=== PATIENT | female | born 1955 | race Caucasian/White ===

== ENCOUNTER 2024-06-18 10:26 | Outpatient (AMB) | payer MEDICARE, SELFPAY ==
[2024-06-18 10:31] VITALS: BP 128/74; PULSE 74; O2SAT 96; BMI 30.3
--- NOTE | 2024-06-18 10:31 | A.OFFVIS_ITS ---
Vital Signs 3 06/18/24 10:31 Height 5 ft 5.5 in Weight 185 lb BMI 30.3 BP 128/74 Blood Pressure Location Rt brachial Position Sitting Pulse 74 Pulse Source Pulse Oximeter Pulse Oximetry (%) 96 Oxygen Delivery Method Room Air Intake Visit Reasons: Bronchitis [employer] Team Member Required: No Allergies cephalexin [From Keflex] Adverse Reaction (Severe, Verified 06/18/24 10:36) Rash Sulfa Drug Adverse Reaction (Severe, Uncoded 06/18/24 10:36) Rash HPI Comments Details: The patient is here for pulmonary evaluation. The patient is a 68 year woman presenting with cough and also persistent dyspnea on exertion. Moderate severity. Apparently patient has not a condition of atrial fibrillation. She is followed closely by Cardiology. She is on a Spacemaker. In addition to that she has been having worsening respiratory symptoms including nonproductive cough chest congestion and shortness of breath. She was evaluated at [facility] where she had a pulmonary function study demonstrating normal obstructive nor restrictive ventilatory defects. In addition to that he had a chest x-ray demonstrating no acute disease although she does have the pacemaker placement and some back issues. The patient was given a diagnosis of asthma. She had been on Advair. She also has a rescue inhaler. She knows to use the rescue inhaler as needed and also prior to exercise. She is an avid swimmer. Recently she had a battery change for her pacemaker so she has not been able to swim in the last week. Because of her ongoing shortness of breath not responding to the respiratory therapy she has been scheduled for a cardiopulmonary exercise tolerance at [facility]. In the meantime the patient was taken for brief walking oximetry. Her heart rate did increase to about 115 and pulse ox was about 95%. Her dyspnea score 5/10. The patient also on examination does have some fine inspiratory crackles at the bases suggesting some degree of interstitial lung disease. 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 She is not sure that has anything to do with it. She did smoke poor. In light but very short. Denies any other exposure to any fumes or toxins. Based on her crackles in her respiratory symptoms I do believe a CT scan would be helpful to rule out interstitial lung disease. Finally. The patient does have a history sleep apnea. Along with cardiovascular disease in uncontrolled atrial fibrillation the patient needs to be further evaluated for that. She does have an elevated [place] score of 10/24. She also lower extremity edema. Along with cardiovascular risk factors in her arrhythmias the patient will benefit from an in-lab study at this time. Also to note the patient does have significant lower extremity edema. It may indeed be part of the calcium channel estela effect although will go ahead and give her 3 days of Lasix to help with the volume status specially with increased heart rate. [facility] Medical History (Updated 06/18/24 @ 21:39 by Amauri Das MD) Atrial fibrillation TRINA (obstructive sleep apnea) Chest crackles Social History (Updated 06/18/24 @ 10:42 by JANET Tabor) Patient Tobacco Use Status: Former Tobacco user Tobacco use type: Cigarette Years Smoked: 10 Years Review of Systems Const Denies fever(s) Eyes Reports no additional complaints ENT Reports dizziness and Reports nasal congestion Card Denies chest pain and Reports dyspnea on exertion Resp Reports cough, Reports dyspnea on exertion and Denies wheezing GI Reports no additional complaints Musc Reports abnormal gait and Reports myalgias Skin/Breast Denies rash Neuro Reports abnormal gait and Reports dizziness Be/Lymph Reports no additional complaints Aller/Immun Denies wheezing Physical Exam Vital Signs: Last Vital Signs Pulse 74 06/18/24 10:31 BP 128/74 06/18/24 10:31 Pulse Ox 96 06/18/24 10:31 Oxygen Delivery Method Room Air 06/18/24 10:31 BMI result Body Mass Index 30.3 Const General: comfortable HEENT Head: Yes normocephalic Neck Neck: Yes supple Chest Chest palpation & inspection: normal inspection of the chest Resp Effort & Inspection: normal respiratory effort Auscultation: crackles bilateral and diminished lung sounds Cardio Heart sounds: S1 normal heart sound present and S2 normal heart sound present GI Palpation (GI): Soft to palpation Skin General skin exam: no rashes or lesions noted Extrem General: No cyanosis and Yes edema Results Reviewed Results Reviewed: Assessment & Plan Assessment & Plan (1) Chest crackles: Comment: ?ILD Code(s): R09.89 - Other specified symptoms and signs involving the circulatory and respiratory systems Category: Medical (2) TRINA (obstructive sleep apnea): Code(s): G47.33 - Obstructive sleep apnea (adult) (pediatric) Category: Medical (3) Atrial fibrillation: Code(s): I48.91 - Unspecified atrial fibrillation Category: Medical Qualifiers: Atrial fibrillation type: unspecified chronic Qualified Code(s): I48.20 - Chronic atrial fibrillation, unspecified Plan CT chest to address crackles and worsening dyspnea, previous CXR was non diagnostic In lab sleep study to address TRINA and cardiac arrythmia Lasix x 3 days consider changing CCB with significant LE edema continue respiratory therapy CPET had been requested restart swiming once PM wound heals F/U 2-3 months Orders: Orders 2 XR chest 2V Today R09.89 - Other specified symptoms and signs involving the circulatory and respiratory systems CT chest wo IV con Today J84.9 - Interstitial pulmonary disease, unspecified, R09.89 - Other specified symptoms and signs involving the circulatory and respiratory systems RT PSG in-lab sleep study Today G47.33 - Obstructive sleep apnea (adult) (pediatric), I48.91 - Unspecified atrial fibrillation Medications: New 2 furosemide (Lasix) 20 mg PO DAILY 3 tabs 0RF 3 days Coding Level of Care Code New Pt Level 4 (15106) Diagnoses Chest crackles R09.89 TRINA (obstructive sleep apnea) G47.33 Chronic atrial fibrillation I48.20 Atrial fibrillation type: unspecified chronic Time Spent (min) 38
== END 2024-06-18 11:10 | disposition home or self-care (01) ==
PROVIDERS: PCP Internal Medicine; Visit Provider Hospitalist
DX: R09.89 Other specified symptoms and signs involving the circulatory and respiratory systems (principal); G47.33 Obstructive sleep apnea (adult) (pediatric); I48.20 Chronic atrial fibrillation, unspecified
CPT/HCPCS: 99204

== ENCOUNTER 2024-06-18 10:26 | Outpatient (REF) | payer MEDICARE, SELFPAY ==
--- NOTE | ~2024-06-18 | XR_ITS ---
EXAMINATION: XR CHEST CLINICAL INFORMATION: Other specified symptoms and signs involving the circulatory system COMPARISON: None available. TECHNIQUE: 2 views of the chest were obtained. FINDINGS: Cardiac silhouette is normal in size. Dual-lead pacemaker is present. The lungs are well aerated. There is no lobar consolidation. No pleural effusion or pneumothorax. Surgical clips project over the left axilla. XR/XR chest 2V IMPRESSION: No acute pulmonary pathology.
== END 2024-06-18 10:27 | disposition home or self-care (01) ==
LOC: HO.XRAY 10:26
PROVIDERS: PCP Internal Medicine; Visit Provider Hospitalist
DX: R09.89 Other specified symptoms and signs involving the circulatory and respiratory systems (principal); G47.33 Obstructive sleep apnea (adult) (pediatric); I48.20 Chronic atrial fibrillation, unspecified
CPT/HCPCS: 71046; 99202

== ENCOUNTER → 2024-07-01 19:30 | Outpatient (REF) | payer MEDICARE, SELFPAY | LOC: HO.SL 19:30 | PROVIDERS: Visit Provider Hospitalist | DX: G47.33 Obstructive sleep apnea (adult) (pediatric) (principal) | CPT/HCPCS: 95810 ==

== ENCOUNTER → 2024-07-01 21:45 | Outpatient (BNV) | payer MEDICARE, SELFPAY | PROVIDERS: Visit Provider Internal Medicine | DX: G47.33 Obstructive sleep apnea (adult) (pediatric) (principal) | CPT/HCPCS: 95810 ==

== ENCOUNTER 2024-07-13 15:00 | Outpatient (REF) | payer MEDICARE, SELFPAY ==
--- NOTE | ~2024-07-13 | CT_ITS ---
EXAMINATION: CT CHEST WITHOUT CONTRAST CLINICAL INFORMATION: Evaluate for interstitial pulmonary disease. Patient with pacemaker. COMPARISON: No prior CT. Chest x-ray 06/18/2024. TECHNIQUE: Multidetector volumetric CT imaging of the chest was done. Axial MIP volume rendering provided. Sagittal and coronal reformatted images were obtained. This CT examination was performed using dose optimization techniques as appropriate, variously including the following: *Automated exposure control *Adjustment of mA and/or kV according to patient size (this includes techniques or standardized protocols for targeted exams where dose is matched to indication/reason for exam; i.e. extremities or head) *Use of iterative reconstruction technique DLP: 189 mGy-cm FINDINGS: SUPERVISOR MATTRESS AND BOXSPRINGS: -Right-sided dual-lead pacemaker in place terminating in the right atrium and right ventricle. PULMONARY NODULES: -There are no suspicious pulmonary nodules identified. -There are a few tiny scattered calcified granulomata, benign. LUNGS: -Minimal scarring present, presumably from radiation, within the lingula peripherally. -Lungs are otherwise clear with no evidence of interstitial changes, bronchial thickening, peribronchial vascular interstitial thickening, or significant bronchiectasis. -There are no gross changes of pulmonary fibrosis or abnormal groundglass changes. MEDIASTINUM: -Left thyroid lobe is normal. Right lobe is poorly visualized. -Great vessels are patent and normal in caliber. Three-vessel branching pattern. Mild atheromatous calcification. -Aorta is nonaneurysmal, with mild tortuosity in the descending aspect. Minimal significant atheromatous calcification. -Main pulmonary arteries are mildly prominent, suggesting at least some degree of pulmonary hypertension. -There is moderate cardiac enlargement, with four-chamber enlargement, most prominent involving the right atrium and left atrium. -There are calcifications within the superior intraventricular septum, and involving the aortic annulus, likely representing old infarct and annular calcification. -Moderate-sized paraesophageal hernia at the GE junction. Remainder of the esophagus appears minimally patulous. CORONARY ARTERY CALCIFICATION: -None visualized on this study. PLEURA: - There is no pleural effusion. No pleural mass or thickening. AXILLA/CHEST WALL: -There has been left mastectomy with reconstruction. No axillary lymphadenopathy or masses. There are left axillary surgical clips. UPPER ABDOMEN: -There is diverticulosis of the imaged colon. -There is a 1.8 cm right lobe hepatic cyst. Liver otherwise is normal on noncontrast imaging. -And imaged kidneys, adrenal glands are normal, as well as the spleen. -There is mild to moderate fatty atrophy of the pancreas. OSSEOUS STRUCTURES: -No acute findings or suspicious findings. -Degenerative spinal changes. CT/CT chest wo IV con IMPRESSION: 1. No evidence of interstitial lung disease, or acute lung disease. 2. There is mild scarring in the lingular segment presumably from left breast radiation. 3. There are a few scattered pulmonary benign granulomata. There is no suspicious pulmonary nodule. 4. Moderate cardiomegaly with evidence of prior superior septal infarct and aortic annular calcifications. There is biatrial enlargement. 5. Moderate sized paraesophageal hiatus hernia. 6. Additional ancillary findings as discussed in the body of the report. Fleischner guidelines were followed. Electronically signed by: Elijah Guardado MD 09/21/2024 10:25 AM EDT
== END 2024-07-13 15:01 | disposition home or self-care (01) ==
LOC: HO.CT 15:00
PROVIDERS: Visit Provider Hospitalist
DX: J84.9 Interstitial pulmonary disease, unspecified (principal); R09.89 Other specified symptoms and signs involving the circulatory and respiratory systems
CPT/HCPCS: 71250

== ENCOUNTER → 2024-07-13 15:02 | Outpatient (BNV) | payer MEDICARE, SELFPAY | PROVIDERS: Visit Provider Radiology Diagnostic Radiology | DX: J84.9 Interstitial pulmonary disease, unspecified (principal) | CPT/HCPCS: 71250 ==

== ENCOUNTER 2024-09-24 10:57 | Outpatient (AMB) | payer MEDICARE, SELFPAY ==
[2024-09-24 11:04] VITALS: BP 122/78; PULSE 86; O2SAT 99; BMI 30.7
--- NOTE | 2024-09-24 11:04 | MHC.OFFVIS ---
Vital Signs 09/24/24 11:04 Height 5 ft 5.5 in Weight 187 lb 6.287 oz BMI 30.7 BP 122/78 Blood Pressure Location Lt brachial Position Sitting Pulse 86 Pulse Source Pulse Oximeter Pulse Oximetry (%) 99 Oxygen Delivery Method Room Air Intake Visit Reasons: Bronchitis Support Team Member Required: No Allergies cephalexin [From Keflex] Adverse Reaction (Severe, Verified 09/24/24 11:06) Rash Sulfa Drug Adverse Reaction (Severe, Uncoded 09/24/24 11:06) Rash HPI Comments Details: The patient is a 69 year woman presenting with cough and also persistent dyspnea on exertion. Moderate severity. Apparently patient has not a condition of atrial fibrillation. She is followed closely by Cardiology. She is on a Spacemaker. In addition to that she has been having worsening respiratory symptoms including nonproductive cough chest congestion and shortness of breath. She was evaluated at [facility] where she had a pulmonary function study demonstrating normal obstructive nor restrictive ventilatory defects. In addition to that he had a chest x-ray demonstrating no acute disease although she does have the pacemaker placement and some back issues. The patient was given a diagnosis of asthma. She had been on Advair. She also has a rescue inhaler. She knows to use the rescue inhaler as needed and also prior to exercise. She is an avid swimmer. Recently she had a battery change for her pacemaker so she has not been able to swim in the last week. Because of her ongoing shortness of breath not responding to the respiratory therapy she has been scheduled for a cardiopulmonary exercise tolerance at [facility]. In the meantime the patient was taken for brief walking oximetry. Her heart rate did increase to about 115 and pulse ox was about 95%. Her dyspnea score 5/10. The patient also on examination does have some fine inspiratory crackles at the bases suggesting some degree of interstitial lung disease. 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 She is not sure that has anything to do with it. She did smoke poor. In light but very short. Denies any other exposure to any fumes or toxins. Based on her crackles in her respiratory symptoms I do believe a CT scan would be helpful to rule out interstitial lung disease. Finally. The patient does have a history sleep apnea. Along with cardiovascular disease in uncontrolled atrial fibrillation the patient needs to be further evaluated for that. She does have an elevated [place] score of 10/24. She also lower extremity edema. Along with cardiovascular risk factors in her arrhythmias the patient will benefit from an in-lab study at this time. Also to note the patient does have significant lower extremity edema. It may indeed be part of the calcium channel estela effect although will go ahead and give her 3 days of Lasix to help with the volume status specially with increased heart rate. 09/24/2024 The patient is here for pulmonary follow-up visit. Overall the patient has been doing well. She continues have daytime drowsiness. Her [place] score is elevated 11/24. The patient did have a sleep study. We did personally reviewed. No evidence of any significant REM sleep. Likely that the sleep apnea is keeping her from getting adequate REM sleep in their poor sleep hygiene. The patient does have underlying sleep apnea and does have cardiovascular risk factors. Therefore will have to start her back on CPAP at this time. She had tried once in the past and she had a hard time with. I am hopeful that she tolerates the therapy better this time. If she has any difficulty she will call so we can assist her and help her process. In addition to that the patient did have a CT scan of the chest which we personally reviewed. The patient does have some radiation changes primarily which she had radiation for her breast cancer. Mainly on the left side. She does have some atelectasis but otherwise her lungs are clear without any evidence of any interstitial lung disease which is reassuring. She does have changes consistent with bronchitis and chronic at this time. The patient also has a moderate hiatal hernia that may be contributing to her cough and also chronic bronchitis. We did talk about the reflux diet and changes she could make at this time. She does have a GI doctor that she may benefit from seeing in the future. In the meantime she is going to sleep elevated we did talk about risers with the head of the bed specially if she gets used to her CPAP. It was also noted patient has small subcentimeter pulmonary nodules that will need follow-up but will discuss that further during her next visit. Also to note that the CT scan of the chest demonstrated some cardiac changes. She does follow-up with cardiology at [facility]. Will go ahead and fax over the report so they can have it as well. [facility] Medical History (Updated 09/24/24 @ 19:07 by Amauri Das MD) Hiatal hernia Pulmonary nodules Atrial fibrillation TRINA (obstructive sleep apnea) Chest crackles Social History (Updated 06/18/24 @ 10:42 by JANET Tabor) Patient Tobacco Use Status: Former Tobacco user Tobacco use type: Cigarette Years Smoked: 10 Years Review of Systems Const Denies fever(s) Eyes Reports no additional complaints ENT Reports dizziness and Reports nasal congestion Card Denies chest pain and Reports dyspnea on exertion Resp Reports cough, Reports dyspnea on exertion and Denies wheezing GI Reports no additional complaints Musc Reports abnormal gait and Reports myalgias Skin/Breast Denies rash Neuro Reports abnormal gait and Reports dizziness Be/Lymph Reports no additional complaints Aller/Immun Denies wheezing Physical Exam Vital Signs: Last Vital Signs Pulse 86 09/24/24 11:04 BP 122/78 09/24/24 11:04 Pulse Ox 99 09/24/24 11:04 Oxygen Delivery Method Room Air 09/24/24 11:04 BMI result Body Mass Index 30.7 Const General: comfortable HEENT Head: Yes normocephalic Neck Neck: Yes supple Chest Chest palpation & inspection: normal inspection of the chest Resp Effort & Inspection: normal respiratory effort Auscultation: no crackles and diminished lung sounds Cardio Heart sounds: S1 normal heart sound present and S2 normal heart sound present GI Palpation (GI): Soft to palpation Skin General skin exam: no rashes or lesions noted Extrem General: No cyanosis and Yes edema Results Reviewed Results Reviewed: [place] [id number] CT Scan Report Signed Patient: Rupal Nobles MR#: [id number] : 1955 Acct:[id number] Age/Sex: 68 / F ADM Date: 07/13/24 Loc: HO.CT Attending Dr: Amauri Das MD Ordering Physician: Amauri Das MD Date of Service: 07/13/24 Procedure(s): CT chest wo IV con Accession Number(s): [id number] cc: Amauri Das MD~ EXAMINATION: CT CHEST WITHOUT CONTRAST CLINICAL INFORMATION: Evaluate for interstitial pulmonary disease. Patient with pacemaker. COMPARISON: No prior CT. Chest x-ray 06/18/2024. TECHNIQUE: Multidetector volumetric CT imaging of the chest was done. Axial MIP volume rendering provided. Sagittal and coronal reformatted images were obtained. This CT examination was performed using dose optimization techniques as appropriate, variously including the following: *Automated exposure control *Adjustment of mA and/or kV according to patient size (this includes techniques or standardized protocols for targeted exams where dose is matched to indication/reason for exam; i.e. extremities or head) *Use of iterative reconstruction technique DLP: 189 mGy-cm FINDINGS: ACCIDENT EXAMINER: -Right-sided dual-lead pacemaker in place terminating in the right atrium and right ventricle. PULMONARY NODULES: -There are no suspicious pulmonary nodules identified. -There are a few tiny scattered calcified granulomata, benign. LUNGS: -Minimal scarring present, presumably from radiation, within the lingula peripherally. -Lungs are otherwise clear with no evidence of interstitial changes, bronchial thickening, peribronchial vascular interstitial thickening, or significant bronchiectasis. -There are no gross changes of pulmonary fibrosis or abnormal groundglass changes. MEDIASTINUM: -Left thyroid lobe is normal. Right lobe is poorly visualized. -Great vessels are patent and normal in caliber. Three-vessel branching pattern. Mild atheromatous calcification. -Aorta is nonaneurysmal, with mild tortuosity in the descending aspect. Minimal significant atheromatous calcification. -Main pulmonary arteries are mildly prominent, suggesting at least some degree of pulmonary hypertension. -There is moderate cardiac enlargement, with four-chamber enlargement, most prominent involving the right atrium and left atrium. -There are calcifications within the superior intraventricular septum, and involving the aortic annulus, likely representing old infarct and annular calcification. -Moderate-sized paraesophageal hernia at the GE junction. Remainder of the esophagus appears minimally patulous. CORONARY ARTERY CALCIFICATION: -None visualized on this study. PLEURA: - There is no pleural effusion. No pleural mass or thickening. AXILLA/CHEST WALL: -There has been left mastectomy with reconstruction. No axillary lymphadenopathy or masses. There are left axillary surgical clips. UPPER ABDOMEN: -There is diverticulosis of the imaged colon. -There is a 1.8 cm right lobe hepatic cyst. Liver otherwise is normal on noncontrast imaging. -And imaged kidneys, adrenal glands are normal, as well as the spleen. -There is mild to moderate fatty atrophy of the pancreas. OSSEOUS STRUCTURES: -No acute findings or suspicious findings. -Degenerative spinal changes. CT/CT chest wo IV con IMPRESSION: 1. No evidence of interstitial lung disease, or acute lung disease. 2. There is mild scarring in the lingular segment presumably from left breast radiation. 3. There are a few scattered pulmonary benign granulomata. There is no suspicious pulmonary nodule. 4. Moderate cardiomegaly with evidence of prior superior septal infarct and aortic annular calcifications. There is biatrial enlargement. 5. Moderate sized paraesophageal hiatus hernia. 6. Additional ancillary findings as discussed in the body of the report. Fleischner guidelines were followed. Electronically signed by: Elijah Guardado MD 09/21/2024 10:25 AM EDT RP Dictated By: Elijah Guardado MD Signed By: <Electronically signed by Elijah Guardado MD in OV> 09/21/24 1025 DD/ 1513 TD/TT: 07/13/24 1540 [employer]: Assessment & Plan Assessment & Plan (1) Pulmonary nodules: Code(s): R91.8 - Other nonspecific abnormal finding of lung field Category: Medical (2) TRINA (obstructive sleep apnea): Code(s): G47.33 - Obstructive sleep apnea (adult) (pediatric) Category: Medical (3) Atrial fibrillation: Code(s): I48.91 - Unspecified atrial fibrillation Category: Medical Qualifiers: Atrial fibrillation type: unspecified chronic Qualified Code(s): I48.20 - Chronic atrial fibrillation, unspecified (4) Hiatal hernia: Code(s): K44.9 - Diaphragmatic hernia without obstruction or gangrene Category: Medical Plan CT chest in 1 yr start APAP diuresi as tolerated continue respiratory therapy F/U 3-4 months Coding Level of Care Code Est Pt Level 4 (56556) Diagnoses Pulmonary nodules R91.8 TRINA (obstructive sleep apnea) G47.33 Chronic atrial fibrillation I48.20 Atrial fibrillation type: unspecified chronic Hiatal hernia K44.9 Time Spent (min) 17
== END 2024-09-24 11:37 | disposition home or self-care (01) ==
PROVIDERS: PCP Internal Medicine; Visit Provider Hospitalist
DX: R91.8 Other nonspecific abnormal finding of lung field (principal); G47.33 Obstructive sleep apnea (adult) (pediatric); I48.20 Chronic atrial fibrillation, unspecified; K44.9 Diaphragmatic hernia without obstruction or gangrene
CPT/HCPCS: 99214

== ENCOUNTER → 2024-09-24 10:57 | Outpatient (BNVA) | payer MEDICARE, SELFPAY | PROVIDERS: PCP Internal Medicine; Visit Provider Hospitalist | DX: R91.8 Other nonspecific abnormal finding of lung field (principal); G47.33 Obstructive sleep apnea (adult) (pediatric); I48.20 Chronic atrial fibrillation, unspecified; K44.9 Diaphragmatic hernia without obstruction or gangrene | CPT/HCPCS: 99212 ==

== ENCOUNTER 2024-12-25 10:26 | Outpatient (AMB) | payer MEDICARE, SELFPAY ==
--- NOTE | 2024-12-25 10:38 | A.OFFVIS_ITS ---
Vital Signs 12/25/24 10:39 Height 5 ft 5.5 in Weight 195 lb 1.745 oz BMI 32.0 BP 132/88 Blood Pressure Location Rt brachial Position Sitting Pulse 76 Pulse Source Pulse Oximeter Pulse Oximetry (%) 98 Oxygen Delivery Method Room Air Intake Visit Reasons: Bronchitis Allergies cephalexin [From Keflex] Adverse Reaction (Severe, Verified 12/25/24 10:46) Rash Sulfa Drug Adverse Reaction (Severe, Uncoded 12/25/24 10:46) Rash HPI Comments Details: The patient is a 69 year woman presenting with cough and also persistent dyspnea on exertion. Moderate severity. Apparently patient has not a condition of atrial fibrillation. She is followed closely by Cardiology. She is on a Spacemaker. In addition to that she has been having worsening respiratory symptoms including nonproductive cough chest congestion and shortness of breath. She was evaluated at [facility] where she had a pulmonary function study demonstrating normal obstructive nor restrictive ventilatory defects. In addition to that he had a chest x-ray demonstrating no acute disease although she does have the pacemaker placement and some back issues. The patient was given a diagnosis of asthma. She had been on Advair. She also has a rescue inhaler. She knows to use the rescue inhaler as needed and also prior to exercise. She is an avid swimmer. Recently she had a battery change for her pacemaker so she has not been able to swim in the last week. Because of her ongoing shortness of breath not responding to the respiratory therapy she has been scheduled for a cardiopulmonary exercise tolerance at [facility]. In the meantime the patient was taken for brief walking oximetry. Her heart rate did increase to about 115 and pulse ox was about 95%. Her dyspnea score 5/10. The patient also on examination does have some fine inspiratory crackles at the bases suggesting some degree of interstitial lung disease. 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 She is not sure that has anything to do with it. She did smoke poor. In light but very short. Denies any other exposure to any fumes or toxins. Based on her crackles in her respiratory symptoms I do believe a CT scan would be helpful to rule out interstitial lung disease. Finally. The patient does have a history sleep apnea. Along with cardiovascular disease in uncontrolled atrial fibrillation the patient needs to be further evaluated for that. She does have an elevated Minturn score of 10 /24. She also lower extremity edema. Along with cardiovascular risk factors in her arrhythmias the patient will benefit from an in-lab study at this time. Also to note the patient does have significant lower extremity edema. It may indeed be part of the calcium channel estela effect although will go ahead and give her 3 days of Lasix to help with the volume status specially with increased heart rate. 09/24/2024 The patient is here for pulmonary follow-up visit. Overall the patient has been doing well. She continues have daytime drowsiness. Her Minturn score is elevated 11/24. The patient did have a sleep study. We did personally reviewed. No evidence of any significant REM sleep. Likely that the sleep apnea is keeping her from getting adequate REM sleep in their poor sleep hygiene. The patient does have underlying sleep apnea and does have cardiovascular risk factors. Therefore will have to start her back on CPAP at this time. She had tried once in the past and she had a hard time with. I am hopeful that she tolerates the therapy better this time. If she has any difficulty she will call so we can assist her and help her process. In addition to that the patient did have a CT scan of the chest which we personally reviewed. The patient does have some radiation changes primarily which she had radiation for her breast cancer. Mainly on the left side. She does have some atelectasis but otherwise her lungs are clear without any evidence of any interstitial lung disease which is reassuring. She does have changes consistent with bronchitis and chronic at this time. The patient also has a moderate hiatal hernia that may be contributing to her cough and also chronic bronchitis. We did talk about the reflux diet and changes she could make at this time. She does have a GI doctor that she may benefit from seeing in the future. In the meantime she is going to sleep elevated we did talk about risers with the head of the bed specially if she gets used to her CPAP. It was also noted patient has small subcentimeter pulmonary nodules that will need follow-up but will discuss that further during her next visit. Also to note that the CT scan of the chest demonstrated some cardiac changes. She does follow-up with cardiology at [facility]. Will go ahead and fax over the report so they can have it as well. 12/25/2024 the patient is here for a pulmonary follow-up visit. Overall she is doing okay. She has been struggling with her cough has been bothering her and it has been difficult to use her CPAP because of that. She has been using the CPAP though and we did review together. Appears that her therapy his affecting beneficial although she needs a higher pressure. I did increase her minimum pressure from 12-14. She is going to use it regularly. She understands that this therapies more for his cardiovascular risk. Will help her continue with respiratory medicines to try to minimize the cough and therefore she can not herminio erated better. She is also has underlying reflux symptoms. She does have a hiatal hernia and she will follow-up with General surgery regarding hard hernia. I did have them make her CD so she can take the CD with her to her general surgeon's office so they can review the images. The patient follow-up in 6 months if she has any issues prior to that she will call for an earlier assessment. [facility] Medical History (Updated 09/24/24 @ 19:07 by Amauri Das MD) Hiatal hernia Pulmonary nodules Atrial fibrillation TRINA (obstructive sleep apnea) Chest crackles Social History Patient Tobacco Use Status: Former Tobacco user Tobacco use type: Cigarette Years Smoked: 10 Years Review of Systems Const Denies fever(s) Eyes Reports no additional complaints ENT Reports dizziness and Reports nasal congestion Card Denies chest pain and Reports dyspnea on exertion Resp Reports cough, Reports dyspnea on exertion and Denies wheezing GI Reports no additional complaints Musc Reports abnormal gait and Reports myalgias Skin/Breast Denies rash Neuro Reports abnormal gait and Reports dizziness Be/Lymph Reports no additional complaints Aller/Immun Denies wheezing Physical Exam Vital Signs: Last Vital Signs Pulse 76 12/25/24 10:39 BP 132/88 12/25/24 10:39 Pulse Ox 98 12/25/24 10:39 Oxygen Delivery Method Room Air 12/25/24 10:39 BMI result Body Mass Index 32.0 Const General: comfortable HEENT Head: Yes normocephalic Neck Neck: Yes supple Chest Chest palpation & inspection: normal inspection of the chest Resp Effort & Inspection: normal respiratory effort Auscultation: no crackles and diminished lung sounds Cardio Heart sounds: S1 normal heart sound present and S2 normal heart sound present GI Palpation (GI): Soft to palpation Skin General skin exam: no rashes or lesions noted Extrem General: No cyanosis and Yes edema Assessment & Plan Assessment & Plan (1) Pulmonary nodules: Code(s): R91.8 - Other nonspecific abnormal finding of lung field Category: Medical (2) TRINA (obstructive sleep apnea): Code(s): G47.33 - Obstructive sleep apnea (adult) (pediatric) Category: Medical (3) Atrial fibrillation: Code(s): I48.91 - Unspecified atrial fibrillation Category: Medical Qualifiers: Atrial fibrillation type: unspecified chronic Qualified Code(s): I48.20 - Chronic atrial fibrillation, unspecified (4) Hiatal hernia: Code(s): K44.9 - Diaphragmatic hernia without obstruction or gangrene Category: Medical Plan continue APAP start nasal steroid spray diuresis as tolerated continue respiratory therapy reflux diet should sleep elevated F/U 8-10 months Medications: New fluticasone propionate 50 mcg/actuation 2 sprays intranasal DAILY 30 days 15.8 mL 11RF J31.0 - Chronic rhinitis Coding Level of Care Code Est Pt Level 4 (03258) Diagnoses Pulmonary nodules R91.8 TRINA (obstructive sleep apnea) G47.33 Chronic atrial fibrillation I48.20 Atrial fibrillation type: unspecified chronic Hiatal hernia K44.9 Time Spent (min) 17
[2024-12-25 10:39] VITALS: BP 132/88; PULSE 76; O2SAT 98; BMI 32.0
--- OUTSIDE RECORDS SUMMARY | 2024-12-25 11:21 | XMS_ITS | Encounter Summary ---
Author Organization [facility] Address [phone] [facility] [place] [address] Care Team Providers Care Desulfurizer Operator Name Role Phone Divya Echeverria MD Primary Care Provi campbell Anayeli Ferguson MD Unavailable [phone] Encounter Details Date Type Department Care Team (Late st Contact Info) Description 11/19/2022 Procedure Pass [facility] [place], Mammography, Samina Lank Imaging Department [address] [place] [address] Social History Tobacco Use Types Packs/Day Years Used Date Smoking Tobacco: Never Cigarettes 0.3 15 - 12/29/1989 Passive Smoke Exposure: Yes Comments:Very light 1-3 ciga rettes per week Alcohol Use Standard Drinks/Week Comments Yes 3 (1 standard drink = 0.6 oz pur e alcohol) Sex and Gender Information Value Date Recorded Sex Assigned at Female 12/05/2017 9:39 AM EST Gender Identity Female Sexual Orientation Straight documented as of this encounter Plan of Treatment Upcoming Encounters Date Type Department Care Team (Late st Contact Info) Description 01/01/2025 11:00 AM EST [facility] [address] [facility] [address] [place] [address] Mata Guidry, SUPPLY ASSISTANT [address] [place] [address] [email or web address] Anayeli Ferguson MD [address] [place] [address] [email or web address] 01/18/2025 8:45 AM EST Office Visit [facility] General & Gastrointestinal Surgery [address] [place] [phone] Aquiles Alarcon MD [address] [address] [email or web address] documented as of this encounter Visit Diagnoses Not on filedocumented in this encounter Additional Health Concerns Assessment Noted Time PHQ-9 Depression Total Score: 0 07/31/20 15 11:59 AM EDT PHQ-2 Depression Total Score: 0 07/31/20 15 11:59 AM EDT documented as of this encounter Care Teams Desulfurizer Operator Relationship Specialty Start Date End Date Divya Echeverria MD [address] [place] [phone] [email or web address] - General Internal Medicine 06/02/17 Anayeli Ferguson MD [address] [place] [phone] [email or web address] Medical Oncology 06/06/19 documented as of this encounter Additional Source Comments The information contained in this document represents components of the legal health record. It is not the complete legal health record.[facility]
--- OUTSIDE RECORDS SUMMARY | 2024-12-25 11:22 | XMS_ITS | Encounter Summary ---
Author Organization [facility] Address [phone] [facility] [place] [address] Care Team Providers Care Bilingual Social Worker Name Role Phone Divya Echeverria MD Primary Care Provi campbell Anayeli Ferguson MD Unavailable [phone] Encounter Details Date Type Department Care Team (Late st Contact Info) Description 11/25/2023 Procedure Pass [facility] [place], Mammography, Samina Lank Imaging Department [address] [place] [address] [phone] Social History Tobacco Use Types Packs/Day Years Used Date Smoking Tobacco: Passive Smoke Exposure - Never Smoker Cigarettes 0.3 15 - 12/29/1989 Passive Smoke Exposure: Yes Comments:Very light 1-3 ciga rettes per week Alcohol Use Standard Drinks/Week Comments Yes 3 (1 standard drink = 0.6 oz pur e alcohol) Education Answer Date Recorded Are you interested in more education? Not on cipriano e 03/27/2023 Are you concerned about learning? Not on file 03/27/2023 No 03/27/2023 No 03/27/2023 Digital Access Answer Date Recorded No 04/24/2023 No 04/24/2023 Reliable internet access at home? Not on file 04/24/2023 Device with a working camera? Not on file Sex and Gender Information Value Date Recorded Sex Assigned at Female 12/05/2017 9:39 AM EST Gender Identity Female Sexual Orientation Straight documented as of this encounter Plan of Treatment Upcoming Encounters Date Type Department Care Team (Late st Contact Info) Description 01/01/2025 11:00 AM EST Office Visit [facility], [facility], [facility] [place] [address] [facility] [place] [address] Mata Guidry, CLINICAL DOCUMENTATION IMPROVEMENT SPECIALIST [address] [place] [address] [email or web address] Anayeli Ferguson MD [address] [place] [phone] [email or web address] 01/18/2025 8:45 AM EST Office Visit [facility] General & Gastrointestinal Surgery [address] [address] Aquiles Alarcon MD [address] [address] [email or web address] documented as of this encounter Visit Diagnoses Not on filedocumented in this encounter Additional Health Concerns Assessment Noted Time PHQ-9 Depression Total Score: 0 07/31/20 15 11:59 AM EDT PHQ-2 Depression Total Score: 0 07/31/20 15 11:59 AM EDT documented as of this encounter Care Teams Bilingual Social Worker Relationship Specialty Start Date End Date Divya Echeverria MD [address] [place] [phone] [email or web address] PCP - General Internal Medicine 06/02/17 Anayeli Ferguson MD [address] [place] [phone] (work) [email or web address] 06/06/19 documented as of this encounter Additional Source Comments The information contained in this document represents components of the legal health record. It is not the complete legal health record.[facility]
--- OUTSIDE RECORDS SUMMARY | 2024-12-25 11:22 | XMS_ITS ---
Author Organization [employer] Address 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 Name Role Phone SHAINA ECHEVERRIA Primary Care Provider [phone] Carlos Singh Unavailable [phone] Allergies Allergen (clinical drug ingredient) Drug/Non Drug Allergy documented on EMR Reaction Allergy Type Onset Date Status Keflex rash Drug Allergy Active cefadroxil Cefadroxil rash Drug Allergy Activ e Substance with sulfonamide structure and antibacterial mechanism of action (substance) Sulfa Antibiotics rash Drug Allergy Active REASON FOR VISIT new patient Medications Medication SIG (Take, Route, Frequency, Duration) Notes Start Date End Date Status amLODIPine Besylate 10 MG 1 tablet Orally Once a day Active Pravastatin Sodium 80 MG 1 tablet Orally Once a day Active Furosemide 20 MG 1/2 tablet Orally On ce a day Active Gabapentin 300 MG 1 capsule Orally Onc e a day Active Eliquis 5 MG as directed Orally T wice a day Active Vitamin D Active Calcium Active Omeprazole Active DULoxetine HCl Activ e Problems Problem Type SNOMED Code ICD Code Onset Dates Problem Status W/U Status Risk Notes Problem 989790987 Chronic atrial fibrillation (I48.20) Active confirmed Vital Signs Temperature 97.6 degrees Fahrenheit 10/19/20 24 Oximetry 94 % 10/19/2024 Heart Rate 92 /min 10/19/2024 Blood pressure systolic 132 mm Hg 10/19/20 24 Blood pressure diastolic 90 mm Hg 024 Weight 193 lbs 10/19/2024 BMI 31.62 kg/m2 10/19/2024 Height 5'5.5 in 10/19/2024 Encounters Encounter Location Date Provider Diagnosis [facility] [address] [place] [address] 10/19/2024 Arotrina Singh Essential hypertensi on I10 ; Mixed hyperlipidemia E78.2 and Chronic atrial fibrillation I48.20 Assessments Encounter Date Diagnosis (ICD Code) Assessment Notes Treatment Notes Treatment Clinical Notes Section Notes 10/19/2024 Essential hypertension (ICD-10 - I10) 69-year-old lady with history of chronic A. fib pacemaker on anticoagulation, hypertension hyperlipidemia is here today for a new patient visit. Plan as following Hypertension blood pressure , diastolic blood pressure slightly elevated at 90,will continue withamlodipine. We will obtain basic metabolic panel and albumin creatinine ratio., will f/up for bp and may need to adjust BP meds Hyperlipidemia continue with statins, obtain a lipid profile patient is watching her diet and exercising/swimmin g every day. History of chronic A. fib on anticoagulation not on any rate controlling medications currently stable continue Eliquis History of TRINA on CPAP followed by Dr. Das New finding of paraesophageal hernia patient reports is causing some shortness of breath and at times difficulty sleeping's left-sided pain she is thinking about surgical intervention at [facility]. CT also showed granulomas in the lungs and mild pulmonary hypertension but no suspicious nodules. She is followed by Dr. Das Chronic lower extremity edema/lymphedema continue with Lasix 20 mg daily Anxiety and depression she developed that after she lost her 2 years ago she is taking duloxetine 30 mg daily she at times feels depressed and lonely but does not affect her activities. PHQ 9 score was below. She follows with a therapist. History of breast cancer she is current on mammogram last one was done in 2022 she follows with [facility] Bone density was done in 2022 at [facility] and according to patient it was normal. Pap smear also [facility] she does not need it anymore she is up-to-date on flu, with pneumonia and shingles 10/19/2024 Mixed hyperlipidemia (ICD-10 - E78.2) 69-year-old lady with history of chronic A. fib pacemaker on anticoagulation, hypertension hyperlipidemia is here today for a new patient visit. Plan as following Hypertension blood pressure , diastolic blood pressure slightly elevated at 90,will continue withamlodipine. We will obtain basic metabolic panel and albumin creatinine ratio., will f/up for bp and may need to adjust BP meds Hyperlipidemia continue with statins, obtain a lipid profile patient is watching her diet and exercising/swimmin g every day. History of chronic A. fib on anticoagulation not on any rate controlling medications currently stable continue Eliquis History of TRINA on CPAP followed by Dr. Das New finding of paraesophageal hernia patient reports is causing some shortness of breath and at times difficulty sleeping's left-sided pain she is thinking about surgical intervention at [facility]. CT also showed granulomas in the lungs and mild pulmonary hypertension but no suspicious nodules. She is followed by Dr. Das Chronic lower extremity edema/lymphedema continue with Lasix 20 mg daily Anxiety and depression she developed that after she lost her 2 years ago she is taking duloxetine 30 mg daily she at times feels depressed and lonely but does not affect her activities. PHQ 9 score was below. She follows with a therapist. History of breast cancer she is current on mammogram last one was done in 2022 she follows with [facility] Bone density was done in 2022 at [facility] and according to patient it was normal. Pap smear also [facility] she does not need it anymore she is up-to-date on flu, with pneumonia and shingles 10/19/2024 Chronic atrial fibrillation (ICD-10 - I48.20) 69-year-old lady with history of chronic A. fib pacemaker on anticoagulation, hypertension hyperlipidemia is here today for a new patient visit. Plan as following Hypertension blood pressure , diastolic blood pressure slightly elevated at 90,will continue withamlodipine. We will obtain basic metabolic panel and albumin creatinine ratio., will f/up for bp and may need to adjust BP meds Hyperlipidemia continue with statins, obtain a lipid profile patient is watching her diet and exercising/swimmin g every day. History of chronic A. fib on anticoagulation not on any rate controlling medications currently stable continue Eliquis History of TRINA on CPAP followed by Dr. Das New finding of paraesophageal hernia patient reports is causing some shortness of breath and at times difficulty sleeping's left-sided pain she is thinking about surgical intervention at [facility]. CT also showed granulomas in the lungs and mild pulmonary hypertension but no suspicious nodules. She is followed by Dr. Das Chronic lower extremity edema/lymphedema continue with Lasix 20 mg daily Anxiety and depression she developed that after she lost her 2 years ago she is taking duloxetine 30 mg daily she at times feels depressed and lonely but does not affect her activities. PHQ 9 score was below. She follows with a therapist. History of breast cancer she is current on mammogram last one was done in 2022 she follows with [facility] Bone density was done in 2022 at [facility] and according to patient it was normal. Pap smear also [facility] she does not need it anymore she is up-to-date on flu, with pneumonia and shingles Plan Of Treatment Pending Test Test Name Order Date CBC with Diff, Platelet, [id number] 09/29 Albumin/Creatinine Ratio,Urine-[id number] Lipid Panel With LDL/HDL Ratio-[id number] Comp. Metabolic Panel [id number] 2023 Next Appt Details Follow Up: 1 Year Daphney mckeon cpe: Provider Name:Kobe wahl, 04/16/2025 09:00:00 AM, [address] [place] [address], [phone], Progress Notes * Sri NOBLES:1955 ( 69 yo F)Acc No.[id number]:10/19/2024 Progress Notes Patient:?Rupal NOBLES Provider:?Carlos Singh DOB:1955???Age:69 Y???Sex:Female D ate:10/19/2024 Address: [address], [facility] Pcp:SHAINA ECHEVERRIA Subjective: * Chief Complaints: * ???New patient * HPI: ???Depression Screening:?PHQ-9?Little interest or pleasure in doing things?Not at all ?Feeling down, depressed, or hopeless?Not at all ?Trouble falling or staying asleep, or sleeping too much?Several days ?Feeling tired or having little energy?Several days ?Poor appetite or overeating?Several days ?Feeling bad about yourself or that you are a failure, or have let yourself or your family down?Not at all ?Trouble concentrating on things, such as reading the newspaper or watching television?Not at all ?Moving or speaking so slowly that other people could have noticed; or the opposite, being so fidgety or restless that you have been moving around a lot more than usual?Not at all ?Thoughts that you would be better off or of hurting yourself in some way?Not at all ?Total Score?3 ?Interpretation?Minimal Depression ???internal medicine:? Jeevan is a pleasant 69-year-old lady with history of TRINA on CPAP followed by Dr. Das, hypertension hyperlipidemia, history of heart block status post pacemaker followed by [facility] cardiology Dr. Crabtree, chronic A. fib on anticoagulation failed cardioversion, history of breast cancer status post left mastectomy followed by Dr. Hoover? at [facility] [place] is here today for a new patient visit patient reports she has been doing well.? She lost her 2 years ago and feels depressed at times she is taking the duloxetine.? 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 Das who ordered a CT of the chest which showed paraesophageal hernia.? She is planning to have a surgery done possibly at [facility]. she denies any chest pain shortness of breath fever chills nausea or vomiting.? She is very active and swims every day.? 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 * ROS:?General/Constitutional:?Overall health?Good.?Change in appetite?denies.?Chills?denies.?Fever?denies.?Night sweats?denies.?Sleep disturbance?denies.?Weight gain?denies.?Weight loss?denies.?Neurologic:?Patient denies?balance difficulty, difficulty speaking, dizziness.?Difficulty speaking?denies.?Dizziness?denies.?Gait abnormality?denies.?Headache?denies.?Loss of strength?denies.?Memory loss?denies.?Seizures?denies.?Tingling/Numbness?denies .?Ophthalmologic:?Blurred vision?denies.?Discharge?denies.?Dry eye?denies.?Red eye?denies.?ENT:?Change in Voice?Denies.?Cold Symptoms?Denies.?Cough?Denies.?Dizziness?Denies.?Nasal Congestion?Denies.?Otalgia?Denies.?postnasal drip?Denies.?Blocked ear?denies.?Nosebleed?denies.?Snoring?denies.?Cardiovascular:?Diaphoresis?Denies.?Pedal Edema?Denies.?PND (Paroxsymal nocturnal dyspnea)?Denies.?Chest pain?denies.?Difficulty laying flat?denies.?Dyspnea on exertion?denies.?Heart murmur?denies.?Orthopnea?denies.?Respiratory:?Asthma?denies.?Cough?denies.?Shortness of breath with exertion?denies.?Sputum production?denies.?Wheezing?denies.?Gastrointestinal:?Change in bowel habits?denies.?Constipation?denies.?Decreased appetite?denies.?Diarrhea?denies.?Heartburn?denies.?Nausea?denies.?Vomiting?desi es.?Musculoskeletal:?tingling/numbness?Denies.?myalgias?Denies.?Joint Swelling?Denies.?extremeties?normal.?Arthritis?denies.?Back problems?denies.?Carpal tunnel?denies.?Joint stiffness?denies.?Muscle aches?denies.?Endocrine:?Bowel Changes?Denies.?Breast Discharge?Denies.?poor libido?Denies.?Cold intolerance?denies.?Excessive sweating?denies.?Excessive thirst?denies.?Frequent urination?denies.?Thyroid problems?denies.?Skin:?Bruising?Denies.?Eczema?denies.?Hair changes?denies.?Rash?denies.?Skin lesion(s)?denies.?Psychiatric:?Patient complaining of?mild depression and difficulty sleeping at times.?Anxiety?denies.?Depressed mood?admits.?Difficulty sleeping?denies.?Nervous breakdown?denies.?Substance abuse?denies.?Urology:?abnormal menstrual bleeding?denies.?blood in urine?denies.?burning on urination?denies.?difficulty urinating?denies.?discharge?denies.?dysuria?denies.? * Medical History:? * Surgical History:?status pos t pacemaker Dr. Crabtree Status post left mastectomy with reconstruction surgery at [facility] [place] 20 years ago Status post right ankle fracture and repair 2022 status post left femur fracture after a fall repair 2018 Failed cardioversion * Hospitalization/Major Diagno stic Procedure:? * Family History:? both parents are mother at an older age head: Cancer metastatic.? She has 5 siblings healthy. * Social History:?she is a she has 1 kid.? She does not smoke cigarettes but uses edible marijuana since her breast cancer.? She occasionally drinks wine.? 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 She is very active and swims every day. * Medications:?TakingVitamin D Calcium DULoxetine HCl Omeprazole Gabapentin 300 MG Capsule 1 capsule Orally Once a day Furosemide 20 MG Tablet 1/2 tablet Orally Once a day Pravastatin Sodium 80 MG Tablet 1 tablet Orally Once a day amLODIPine Besylate 10 MG Tablet 1 tablet Orally Once a day Eliquis 5 MG Tablet as directed Orally Twice a day Medication List reviewed and reconciled with the patientTaking Vitamin D Taking Calcium Taking DULoxetine HCl Taking Omeprazole Taking Gabapentin 300 MG Capsule 1 capsule Orally Once a day Taking Furosemide 20 MG Tablet 1/2 tablet Orally Once a day Taking Pravastatin Sodium 80 MG Tablet 1 tablet Orally Once a day Taking amLODIPine Besylate 10 MG Tablet 1 tablet Orally Once a day Taking Eliquis 5 MG Tablet as directed Orally Twice a day Medication List reviewed and reconciled with the patient * Allergies:?Sulfa Antibiotics : rash - AllergyKeflex: rash - AllergyCefadroxil: rash - Allergyno[Allergies Verified] Objective: * Vitals:?Temp:97.6F, Oxygen s at %:94%, HR:92/min, BP:132/90mm Hg, Wt:193lbs, BMI:31.62Index, Ht: 5'5.5 . * Examination: ???General Examination: ?Psychiatry?Normal.?GENERAL APPEARANCE:?Well developed, well nourished, in no acute distress.?MUSCULOSKELETAL:?Normal.?HEAD:?Normocephalic, atraumatic.?EYES:?Pupils equal, round, reactive to light and accommodation, sclera non-icteric.?EARS:?Normal.?ORAL CAVITY:?Normal.?THROAT:?Clear.?OROPHARYNX?Normal.?SINUSES?Normal.?NECK/THYROID:?Neck supple, full range of motion, no cervical lymphadenopathy.?SKIN:?Warm and dry, no suspicious lesions.?HEART:?irregular heartbeat, no rubs.?LUNGS:?Normal.?BREASTS:?left mastectomy.?ABDOMEN:?Soft, nontender, nondistended, bowel sounds present, normal.?EXTREMITIES:?3+ pitting edema lower extremities.?PERIPHERAL PULSES:?Normal.?NEUROLOGIC:?Nonfocal,? 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 .? Assessment: * Assessment: 1.?Essential hypertension - I10???2.?Mixed hyperlipidemia - E78.2???3.?Chronic atrial fibrillation - I48.20??? 69-year-old lady with histor y of chronic A. fib pacemaker on anticoagulation, hypertension hyperlipidemia is here today for a new patient visit.? Plan as following Hypertension blood pressure? , diastolic blood pressure slightly elevated at 90,will continue withamlodipine.? We will obtain basic metabolic panel and albumin creatinine ratio., will f/up for bp and may need to adjust BP meds Hyperlipidemia continue with statins, obtain a lipid profile patient is watching her diet and exercising/swimming every day. History of chronic A. fib on anticoagulation not on any rate controlling medications currently stable continue Eliquis History of TRINA on CPAP followed by Dr. Das New finding of paraesophageal hernia patient reports is causing some shortness of breath and at times difficulty sleeping's left-sided pain she is thinking about surgical intervention at [facility]. CT also showed granulomas in the lungs and mild pulmonary hypertension but no suspicious nodules.? She is followed by Dr. Das Chronic lower extremity edema/lymphedema continue with Lasix 20 mg daily Anxiety and depression she developed that after she lost her 2 years ago she is taking duloxetine 30 mg daily she at times feels depressed and lonely but does not affect her activities.? PHQ 9 score was below.? She follows with a therapist. History of breast cancer she is current on mammogram last one was done in 2022 she follows with [facility] Bone density was done in 2022 at [facility] and according to? patient it was normal.? Pap smear also [facility] she does not need it anymore she is up-to-date on flu, with pneumonia and shingles Plan: * Treatment: 2.?Mixed hyperlipidemia?LAB: CBC with Diff, Platelet, NLR-[id number] ?LAB: Lipid Panel With LDL/HDL Ratio-[id number] * Procedure Codes:?3075F SYST BP GE 130 - 139MM [id number] DIAST BP = 90 MM HG * Follow Up:?1 Year mike cpe * * Sign off status: Completed true * Provider:Eulogio Singh, Date:?10/19/2024 Generated for Arron escobar/Anselmo/eTransmitting on:?12/25/2024 11:22 AM EST History and Physical Notes * HPI (History of Present Illness) Category Sub-Category Detail Notes Category Not es Depression Screening PHQ-9 Little inte rest or pleasure in doing things: Not at all Feeling down, depressed, or hopeless: No t at all Trouble falling or staying asleep, or sl eeping too much: Several days Feeling tired or having little energy: S everal days Poor appetite or overeating: Several day s Feeling bad about yourself o r that you are a failure, or have let yourself or your family down: Not at all Trouble concentrating on thi ngs, such as reading the newspaper or watching television: Not at all Moving or speaking so slowly that other people could have noticed; or the opposite, being so fidgety or restless that you have been moving around a lot more than usual: Not at all Thoughts that you would be b khushi off or of hurting yourself in some way: Not at all Total Score: 3 Interpretation: Minimal Depression internal medicine Jeevan is a pleasant 69-year-old lady with history of TRINA on CPAP followed by Dr. Das, hypertension hyperlipidemia, history of heart block status post pacemaker followed by [facility] cardiology Dr. Crabtree, chronic A. fib on anticoagulation failed cardioversion, history of breast cancer status post left mastectomy followed by Dr. Hoover at [facility] [place] is here today for a new patient visit patient reports she has been doing well. She lost her 2 years ago and feels depressed at times she is taking the duloxetine. 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 Das who ordered a CT of the chest which showed paraesophageal hernia. She is planning to have a surgery done possibly at [facility]. she denies any chest pain shortness of breath fever chills nausea or vomiting. She is very active and swims every day. 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 Examination Category Sub-Category Detail Notes Category Not es General Examination GENERAL APPEARANCE: Well dev eloped, well nourished, in no acute distress HEAD: Normocephalic, atrau matic EYES: Pupils equal, round, reactive to light and accommodation, sclera non-icteric EARS: Normal THROAT: Clear NECK/THYROID: Neck supple, full ra nge of motion, no cervical lymphadenopathy HEART: irregular heartbeat, no rubs LUNGS: Normal ABDOMEN: Soft, nontender, non distended, bowel sounds present, normal NEUROLOGIC: Nonfocal, appropriat e motor strength normal upper and lower extremities, sensory exam intact SKIN: Warm and dry, no nadia picious lesions EXTREMITIES: 3+ pitting edema low er extremities PERIPHERAL PULSES: Normal BREASTS: left mastectomy MUSCULOSKELETAL: Normal MALE GENITOURINARY: __ FEMALE GENITOURINARY: __ ORAL CAVITY: Normal PODIATRIC: Normal Psychiatry Normal OROPHARYNX Normal SINUSES Normal 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
--- OUTSIDE RECORDS SUMMARY | 2024-12-25 11:22 | XMS_ITS | Encounter Summary ---
Author Organization [employer] [facility] Address [phone] [facility] [place] [place] [address] Care Team Providers Care Furniture Mover Name Role Phone Divya Echeverria MD Primary Care Provi campbell Anayeli Ferguson MD Unavailable [phone] Encounter Details Date Type Department Care Team (Late st Contact Info) Description 11/27/2024 7:01 AM EST - 11/27/2024 11:59 PM [facility], [facility]ina [facility] Imaging Department [address] [place] [address] Anayeli Ferguson MD [address] [place] [address] [email or web address] Discharge Disposition: Home or Self Care Social History Tobacco Use Types Packs/Day Years Used Date Smoking Tobacco: Passive Smoke Exposure - Never Smoker Cigarettes 0.3 15 - 12/29/1989 Passive Smoke Exposure: Yes Tobacco Cessation:Counseling Given: Not Answered Comments:Very light 1-3 cigarettes per week Alcohol Use Standard Drinks/Week Comments [...] Orientation Straight documented as of this encounter Medications at Time of Discharge Medication Sig Dispensed Refills Start Date End Date alendronate (FOSAMAX) 70 MG tablet Take 70 mg by mouth every 7 days. Take in the morning with a full glass of water, on an empty stomach, and do not take anything else by mouth or lie down for the next 30 min. amLODIPine (NORVASC) 10 MG tablet Take 10 mg by mouth daily. 06/17/2011 apixaban (ELIQUIS) 5 mg tabletIndications:Malign ant neoplasm of female breast, unspecified laterality, unspecified site of breast Take 1 tablet (5 mg total) by mouth 2 (two) times a day. 60 tablet 06/16/2017 CALCIUM CARBONATE-VITAMIN D3 ORAL Take 1 tablet by mouth 2 (two) times a day. 12/15/2007 gabapentin (NEURONTIN) 300 MG capsule Take 1 capsule by mouth daily as needed. 06/17/2011 multivitamin per tablet Take 1 tablet by mouth daily. 12/15/2007 simvastatin (ZOCOR) 40 MG tabletIndications:Malign ant neoplasm of female breast, unspecified laterality, unspecified site of breast Take 2 tablets (80 mg total) by mouth nightly. 30 tablet 06/16/2017 documented as of this encounter Plan of Treatment Upcoming Encounters Date Type Department Care Team (Late st Contact Info) Description 01/01/2025 11:00 AM EST [facility], [facility] [address] [facility] [place] [place] [address] Mata Guidry, RAIL CREW MEMBER [address] [place] [address] [email or web address] THE [facility] Anayeli Ferguson MD [address] [place] [address] [email or web address] 01/18/2025 8:45 AM EST Office Visit [facility] [address] [facility] [address] [place] [address] Aquiles Alarcon MD [address] [facility] [address] [place] [address] [email or web address] documented as of this encounter Procedures Procedure Name Priority Date/Time Associated Diagnosis Comments BI MAMMOGRAM SCREENING WITH TOMOSYNTHESIS WITH CAD (RIGHT) Routine 11/27/2024 7:22 AM EST Malignant neoplasm of left breast in female, estrogen receptor negative, unspecified site of breast documented in this encounter Results * BI MAMMOGRAM SCREENING WITH TOMOSYNTHESIS WITH CAD (RIGHT) (11/27/2024 7:22 AM EST) Anatomical Region Laterality Modality Breast Right, Breast Bilateral Right M ammography Other 11/27/2024 11:5 2 AM EST Impressions 11/27/2024 12:09 PM EST No mammographic evidence of malignancy in the right breast. Annual screening mammography is recommended. BI-RADS 1 NEGATIVE The patient will be notified of the results and recommendations. ATTESTATION: Maynor Alamo, as teaching physician have reviewed the images, if any, for this patient's exam, and if necessary, have edited the report originally created by Darren Singh. Narrative 11/27/2024 12:09 PM EST BI MAMMOGRAM SCREENING WITH TOMOSYNTHESIS WITH CAD (RIGHT) Additional patient information: Screening. History of left breast cancer status post mastectomy. ?? COMPARISON: Comparison is made with relevant prior imaging. Breast composition: The breast tissue is almost entirely fatty. FINDINGS: No abnormal masses, suspicious calcifications, or other significant findings are identified mammographically in the right breast. Procedure Note Maynor Toribio MD - 11/27/2024 BI MAMMOGRAM SCREENING WITH TOMOSYNTHESIS WITH CAD (RIGHT) Additional patient information: Screening. History of left breast cancerstatus post mastectomy. COMPARISON: Comparison is made with relevant prior imaging. Breast composition: The breast tissue is almost entirely fatty. FINDINGS: No abnormal masses, suspicious calcifications, or other significantfindings are identified mammographically in the right breast. IMPRESSION: No mammographic evidence of malignancy in the right breast. Annual screening mammography is recommended. BI-RADS 1 NEGATIVE The patient will be notified of the results and recommendations. ATTESTATION: IMaynor, as teaching physician have reviewed theimages, if any, for this patient's exam, and if necessary, have edited thereport originally created by Darren Singh. Anayeli Ferguson MD IMG MG EXAMS documented in this encounter Visit Diagnoses Diagnosis Malignant neoplasm of left breast in female, estrogen receptor negative, unspecified site of breast documented in this encounter Additional Health Concerns Assessment Noted Time PHQ-9 Depression Total Score: 0 07/31/20 15 11:59 AM EDT PHQ-2 Depression Total Score: 0 07/31/20 15 11:59 AM EDT documented as of this encounter Care Teams Furniture Mover Relationship Specialty Start Date End Date Divya Echeverria MD [address] [place] [phone] [email or web address] - General Internal Medicine 06/02/17 Anayeli Ferguson MD [address] [place] [phone] [email or web address] Medical [email or web address] 06/06/19 documented as of this encounter Additional Source Comments The information contained in this document represents components of the legal health record. It is not the complete legal health record.[facility]
--- OUTSIDE RECORDS SUMMARY | 2024-12-25 11:22 | XMS_ITS | Encounter Summary ---
Author Organization [employer] [facility] Address [phone] [facility] [place] [address] Care Team Providers Care Program Attendant Name Role Phone Divya Echeverria MD Primary Care Provi campbell Anayeli Ferguson MD Unavailable [phone] Encounter Details Date Type Department Care Team (Late st Contact Info) Description 09/18/2021 Procedure Pass [facility], Mammography, Samina Lank Imaging Department [address] [place] [address] Social History Tobacco Use Types Packs/Day Years Used Date Smoking Tobacco: Former Comments:Smoking History Pac ks/day: <=0.5 Quit smokin12/06/1999 Alcohol Use Standard Drinks/Week Comments Yes 0 (1 standard drink = 0.6 oz pur [...] Oncology, [facility], [facility] [address] [facility] [address] [place] [address] Mata Guidry, TRUCK DRIVER RUBBISH COLLECTOR [address] [place] [id number] [email or web address] Anayeli Ferguson MD [address] [place] [address] [email or web address] 01/18/2025 8:45 AM EST Office Visit [facility] & Gastrointestinal Surgery [address] [facility] [address] [place] [address] Aquiles Alarcon MD 55 [facility] [address] [place] [address] [email or web address] documented as of this encounter Visit Diagnoses Not on filedocumented in this encounter Additional Health Concerns Assessment Noted Time PHQ-9 Depression Total Score: 0 07/31/20 15 11:59 AM EDT PHQ-2 Depression Total Score: 0 07/31/20 15 11:59 AM EDT documented as of this encounter Care Teams Program Attendant Relationship Specialty Start Date End Date Divya Echeverria MD [address] [place] [phone] [email or web address] PCP - General Internal Medicine 06/02/17 Anayeli Ferguson MD [address] [place] [id number] [email or web address] 06/06/19 documented as of this encounter Additional Source Comments The information contained in this document represents components of the legal health record. It is not the complete legal health record.[facility]
--- OUTSIDE RECORDS SUMMARY | 2024-12-25 11:22 | XMS_ITS | Clinical Summary ---
Author Organization [employer] Formerly [facility], [facility] Address [phone] [facility] [place] [address] Care Team Providers Care [employer] Name Role Phone Divya Echeverria MD Primary Care Provi campbell Anayeli Ferguson MD Unavailable [phone] Allergies Active Allergy Reactions Criticality Noted Date Comments Cefadroxil Rash,Unknown 08/29/2012 Converted from free text to coded by Romina Larios. Cephalexin Rash,Unknown 05/05/2000 Sulfa (Sulfonamide Antibiotics) Other (See Comments) 05/05/2000 Rash; Hives or Other Rash Medications Medication Sig Dispensed Refills Start Date End Date Status amLODIPine (NORVASC) 10 MG tablet Take 10 mg by mouth daily. 06/17/2011 Active CALCIUM CARBONATE-VITAMIN D3 ORAL Take 1 tablet by mouth 2 (two) times a day. 12/15/2007 Active gabapentin (NEURONTIN) 300 MG capsule Take 1 capsule by mouth daily as needed. 06/17/2011 Active multivitamin per tablet Take 1 tablet by mouth daily. 12/15/2007 Active simvastatin (ZOCOR) 40 MG tabletIndications:Mal ignant neoplasm of female breast, unspecified laterality, unspecified site of breast Take 2 tablets (80 mg total) by mouth nightly. 30 tablet 06/16/2017 Active apixaban (ELIQUIS) 5 mg tabletIndications:Mal ignant neoplasm of female breast, unspecified laterality, unspecified site of breast Take 1 tablet (5 mg total) by mouth 2 (two) times a day. 60 tablet 06/16/2017 Active alendronate (FOSAMAX) 70 MG tablet Take 70 mg by mouth every 7 days. Take in the morning with a full glass of water, on an empty stomach, and do not take anything else by mouth or lie down for the next 30 min. Active Active Problems Problem Noted Date Diagnosed Date Encounter for gynecological examination without abnormal finding 07/31/2015 Encounter for gynecological examination without abnormal finding 07/31/2015 Breast cancer 06/05/2015 Hypertensive disorder 06/21/2012 Overview (01/18/2015): Hypertensive disorder Osteoporosis 06/21/2012 Overview (01/18/2015): Osteoporosis Encounters Date Type Department Care Team Description 11/27/2024 7:01 AM EST - 11/27/2024 11:59 PM EST Hospital Encounter [facility], Mammography, Samina Lank Imaging Department [address] [place] [phone] Anayeli Ferguson MD Discharge Disposition: Home or Self Care 11/26/2024 Telephone [facility], Priya Callahan [facility], [facility] [address] [place] [address] [address] [place] [address] Belinda Masterson RN Care Coordination 11/25/2023 Procedure Pass [facility], Mammography, Samina Lank Imaging Department [address] [place] [phone] from Last 3 Months Immunizations Name Administration Dates Next Due COVID-19, Unspecified Formulation 12/12/2020 Influenza, Unspecified Formulation 09/21/2006, Family History Medical History Relation Comments Emphysema Father Cancer Mother Ovarian cancer Mother Uterine cancer Mother Relation Status Comments Father Mother Social History Tobacco Use Types Packs/Day Years [...] EST Gender Identity Female Sexual Orientation Straight Last Filed Vital Signs Vital Sign Reading Time Taken Comments Blood Pressure 130/88 11/25/2023 8:00 AM EST Pulse 86 11/25/2023 8:00 AM EST Temperature 36.4 ??C (97.6 ??F) 11/25/2023 8:01 AM ES T Respiratory Rate 16 11/25/2023 8:00 AM EST Oxygen Saturation 96% 11/25/2023 8:00 AM EST Inhaled Oxygen Concentration - - Weight 84.1 kg (185 lb 6.5 oz) 11/25/2023 8:00 A M EST Height 155 cm (5' 1.02 ) 11/25/2023 8:00 AM EST Body Mass Index 35 11/25/2023 8:00 AM EST Plan of Treatment Upcoming Encounters Date Type Department Care Team (Late st Contact Info) Description 01/01/2025 11:00 AM EST Office Visit [facility], Priya [facility], [facility] [address] [facility] [place] [address] Mata Guidry, [employer] [address] [place] [address] [email or web address] Anayeli Ferguson MD [address] [place] [address] [email or web address] 01/18/2025 8:45 AM EST Office Visit [facility] General & Gastrointestinal Surgery [address] [facility] [address] [place] [address] Aquiles Alarcon MD [address] [facility] [address] [place] [address] [email or web address] Health Maintenance Due Date Last Done Comments CREATININE LEVEL 1954 LIPID PANEL 1954 HEPATITIS B SCREENING 1972 COLOGUARD 1999 FIT TEST 1999 FOBT 1999 SIGMOIDOSCOPY 1999 VIRTUAL COLONOSCOPY 1999 DEPRESSION SCREENING 07/31/2016 07/31/2015, 07/31/20 15 COLONOSCOPY 12/19/2016 12/19/2006 COLORECTAL CANCER SCREENING 12/19/2016 BLOOD PRESSURE 05/26/2024 11/25/2023 MAMMOGRAM 11/27/2026 11/27/2024, 07/0 01/2014, 04/28/2013, Additional history exists RSV VACCINE (1 - 1-dose 75+ series) 2029 Adult Td,Tdap Booster 02/20/2034 02/21/2024, 014 HEPATITIS C SCREENING Completed 08/11/2000 ZOSTER VACCINES Completed 01/12/2019, 09/26/2018 PNEUMOCOCCAL VACCINES (50+ years) Completed 10/05/2020, 09/13/2019 INFLUENZA VACCINE Completed 08/20/2024, , 09/27/2022, Additional history exists COVID-19 VACCINE Completed 09/08/2024, , 09/27/2022, Additional history exists OSTEOPOROSIS SCREENING INITIAL (ONE-TIME) Completed 11/27/2024, 09/18/2021, 06/06/2019, Additional history exists SMOKING STATUS SCREENING (Once After 26 Yrs) Completed 11/27/2024 HEPATITIS A VACCINES Aged Out No long er eligible based on patient's age to complete this topic HEPATITIS B VACCINES Aged Out No long er eligible based on patient's age to complete this topic HIB VACCINES Aged Out No longer eligi ble based on patient's age to complete this topic MENINGOCOCCAL VACCINES (ACWY) Aged Out No longer eligible based on patient's age to complete this topic Medical Devices Not on file Procedures Procedure Name Priority Date/Time Associated Diagnosis Comments BD DXA AXIAL (SPINE) WITH HIP Routine 11/27/2024 9:20 AM EST Age-related osteoporosis with current pathological fracture with routine healing BI MAMMOGRAM SCREENING WITH TOMOSYNTHESIS WITH CAD (RIGHT) Routine 11/27/2024 7:22 AM EST Malignant neoplasm of left breast in female, estrogen receptor negative, unspecified site of breast BI MAMMOGRAM DIAGNOSTIC (UNILATERAL) Routine 05/30/2014 12:00 AM EDT ENDOSCOPY, COLON 12/19/2006 8:04 PM EST from Last 3 Months or Most Recently Relevant to Health Maintenance Results * BD DXA AXIAL (SPINE) WITH HIP (11/27/2024 9:20 AM EST) Anatomical Region Laterality Modality Bone Density Bone Density 11/27/2024 9:23 AM EST Impressions 12/05/2024 1:27 PM EST Interpretation: Normal bone mineral density. Narrative 12/05/2024 1:27 PM EST ?* Bone Density Report (DXA) * Technologist: jose roberto DXA Model: Criteo A DXA Device: [id number] Referring Physician: DIVYA ECHEVERRIA Indications: Patient is a 69 year old female with the following: ? osteoporosis, cancer (breast), past radiation therapy, past chemotherapy and ?? past Fosamax. ? - Bone Density - ? BMD ?BMD Change ? BMD Change ? Site ? (g/cm2) ??T-score ??Z-score ??Since (Baseline) ? Since (Prior Scan) ?? --------- ??------- ??------- ??------- ? AP Spine L1 L2 L3 ??0.996 ?-0.2 ? 1.9 ?7.6% (07/31/2015) ?None (09/18/2021) ? Right Hip Fem Neck ??0.751 ?-0.9 ? 0.9 ?None (06/06/2019) ?-4.5% (09/18/2021) ?? Total ? 0.877 ?-0.5 ? 1.0 ?3.2% (06/06/2019) ?None (09/18/2021) ? --------- ??------- ??------- ??------- ? * World Health Organization criteria for BMD intepretation classify patients ?? as: Normal (T-score at or above -1.0), Osteopenic (T-score between -1.0 and ?? -2.5), or Osteoporotic (T-score at or below -2.5). Interpretation: Normal bone mineral density. Technical Quality: The PA Spine scan was of marginal quality because of ? sclerosis or fracture (which increase BMD). Fracture Risk Assessment: FRAX not reported because femoral neck T-score ? greater than or equal to -1.0. Recommendations: ??Would consider follow up BMD in 2 to 5 years, pending on ? risk factors. Dr. Astrid Hanna ?? 12/05/2024 ?* About This Bone Density Report * About FRAX The Bone Health and Osteoporosis Foundation (BHOF) Clinicians ??Guide ? recommends treatment if either the 10-year risk for hip fracture is greater ?? than or equal to 3% or for major osteoporotic ??fracture greater than or ? equal to 20%. All treatment decisions require clinical judgment and ? consideration of individual ??patient factors, including patient preferences, ?? comorbidities, previous drug use and risk factors not captured in the ??FRAX ?? model (e.g. frailty, falls, vitamin D deficiency, increased bone turnover, ? interval significant decline in BMD). The Clinicians Guide is here: ? https://[email or web address] [email or web address]/public/[facility]/qokhkmdtoocenmy7222.pdf About Trabecular Bone Score (TBS) The TBS is derived from the texture of the DXA spine image and has ??been ? shown to be related to bone microarchitecture and fracture risk. This data ? provides information independent of BMD value. It adds ??to fracture risk ? assessment with a FRAX adjusted for TBS score. If your patient had a TBS and ?? qualified for a FRAX score, the reported ??FRAX score has been adjusted for ? TBS. ?TBS Score ?Interpretation ?--------- ?1.350 and greater ?Normal bone microarchitecture ?1.200 to 1.350 ? Partially degraded bone microarchitecture ?1.200 and less ? Degraded bone microarchitecture ? Procedure Note Astrid Hanna MD - 12/05/2024 * Bone Density Report (DXA) * Technologist: jose roberto DXA Model: Criteo A DXA Device: [id number] Referring Physician: DIVYA ECHEVERRIA Indications: Patient is a 69 year old female with the following: osteoporosis, cancer (breast), past radiation therapy, past chemotherapyand past Fosamax. - Bone Density - BMD BMD Change BMD Change Site (g/cm2) T-score Z-score Since (Baseline) Since (PriorScan) --------- ------- ------- ------- AP Spine L1 L2 L3 0.996 -0.2 1.9 7.6% (07/31/2015) None(09/18/2021) Right Hip Fem Neck 0.751 -0.9 0.9 None (06/06/2019) -4.5%(09/18/2021) Total 0.877 -0.5 1.0 3.2% (06/06/2019) None(09/18/2021) --------- ------- ------- ------- * World Health Organization criteria for BMD intepretation classifypatients as: Normal (T-score at or above -1.0), Osteopenic (T-score between -1.0and -2.5), or Osteoporotic (T-score at or below -2.5). Interpretation: Normal bone mineral density. Technical Quality: The PA Spine scan was of marginal quality because of sclerosis or fracture (which increase BMD). Fracture Risk Assessment: FRAX not reported because femoral neck T-score greater than or equal to -1.0. Recommendations: Would consider follow up BMD in 2 to 5 years, pending on risk factors. Dr. Astrid Hanna 12/05/2024 * About This Bone Density Report * About FRAX The Bone Health and Osteoporosis Foundation (BHOF) Clinicians Guide recommends treatment if either the 10-year risk for hip fracture isgreater than or equal to 3% or for major osteoporotic fracture greater than or equal to 20%. All treatment decisions require clinical judgment and consideration of individual patient factors, including patientpreferences, comorbidities, previous drug use and risk factors not captured in theFRAX model (e.g. frailty, falls, vitamin D deficiency, increased bone turnover, interval significant decline in BMD). The Clinicians Guide is here: https://bwhbonestation.mgbapps.org/public/[facility]/qexsbetbbtngndf3192.pdf About Trabecular Bone Score (TBS) The TBS is derived from the texture of the DXA spine image and has been shown to be related to bone microarchitecture and fracture risk. This data provides information independent of BMD value. It adds to fracture risk assessment with a FRAX adjusted for TBS score. If your patient had a TBSand qualified for a FRAX score, the reported FRAX score has been adjusted for TBS. TBS Score Interpretation --------- 1.350 and greater Normal bone microarchitecture 1.200 to 1.350 Partially degraded bone microarchitecture 1.200 and less Degraded bone microarchitecture IMPRESSION: Interpretation: Normal bone mineral density. Divya Echeverria MD IMG BD BONE DENSITY DEXA * BI MAMMOGRAM SCREENING WITH TOMOSYNTHESIS WITH CAD (RIGHT) (11/27/2024 7:22 AM EST) Anatomical Region Laterality Modality Breast Right, Breast Bilateral Right M ammography Other 11/27/2024 11:5 2 AM EST Impressions 11/27/2024 12:09 PM EST No mammographic evidence of malignancy in the right breast. Annual screening mammography is recommended. BI-RADS 1 NEGATIVE The patient will be notified of the results and recommendations. ATTESTATION: I, Maynor Toribio, as teaching physician have reviewed the images, [...] notified of the results and recommendations. ATTESTATION: I, Maynor Toribio, as teaching physician have reviewed theimages, if any, for this patient's exam, and if necessary, have edited thereport originally created by Darren Singh. Anayeli Ferguson MD IMG MG EXAMS * BI MAMMOGRAM DIAGNOSTIC (UNILATERAL) (05/30/2014 12:00 AM EDT) Anatomical Region Laterality Modality Breast Left, Breast Right, Breast Bilateral Mammography 05/30/2014 9:26 AM EDT Narrative 05/30/2014 9:56 AM EDT Exam Number: ??[id number] ?Report Status: ??Final Type: ??Digital Diag Mammo Uni w/ CAD Date/Time: ??05/30/2014 09:26 Exam Code: ??DX400/RIGHT Ordering Provider: ??ANAYELI FERGUSON MD REPORT: ? INDICATION: PRIOR LEFT MASTECTOMY FOR BREAST CANCER. ??NO CURRENT ? COMPLAINTS. ? Full Field Digital Mammography was used to obtain MLO and CC images. ? Computer Aided Detection was used to aid in interpretation. ? Comparison is made to films from 04-Apr-2009. There is no significant ? interval change. ? Right Breast Findings: ? The breast is almost entirely fat (less than or equal to 10% ? fibroglandular). No significant masses, calcifications or other ? abnormalities are seen. ? IMPRESSION: ? RIGHT BREAST - Category 1 ? Negative, no evidence of malignancy. Normal interval follow-up is ? recommended in 12 months. ? RESULTS WERE DISCUSSED WITH THE PATIENT AND SHE WAS PROVIDED WITH A ? WRITTEN SUMMARY AT THE TIME OF THE STUDY ? OVERALL ASSESSMENT - NEGATIVE ? END OF IMPRESSION ? This report was electronically signed by KOKI LEE MD(T) ? RADIOLOGISTS: ? SIGNATURES: ? MD ROSA(T), KOKI ? MD ROSA(T), KOKI ?Finalized on: ??05/30/2014 09:56 Procedure Note Sys, Conversion Provider Not In - 01/21/2015 Exam Number: [id number] Report Status: Final Type: Digital Diag Mammo Uni w/ CAD Date/Time: 05/30/2014 09:26 Exam Code: DX400/RIGHT Ordering Provider: ANAYELI FERGUSON MD REPORT: INDICATION: PRIOR LEFT MASTECTOMY FOR BREAST CANCER. NO CURRENT COMPLAINTS. Full Field Digital Mammography was used to obtain MLO and CCimages. Computer Aided Detection was used to aid in interpretation. Comparison is made to films from 04-Apr-2009. There is nosignificant interval change. Right Breast Findings: The breast is almost entirely fat (less than or equal to 10% fibroglandular). No significant masses, calcifications or other abnormalities are seen. IMPRESSION: RIGHT BREAST - Category 1 Negative, no evidence of malignancy. Normal interval follow-up is recommended in 12 months. RESULTS WERE DISCUSSED WITH THE PATIENT AND SHE WAS PROVIDED WITH A WRITTEN SUMMARY AT THE TIME OF THE STUDY OVERALL ASSESSMENT - NEGATIVE END OF IMPRESSION This report was electronically signed by KOKI ROBB(T) RADIOLOGISTS: SIGNATURES: MD ROSA(T), KOKI LEE MD(T),KOKI Finalized on: 05/30/2014 09:56 Anayeli Ferguson MD IMG MG EXAMS * ENDOSCOPY, COLON (12/19/2006 8:04 PM EST) 12/19/2006 8:04 PM EST Narrative Transcriptions Sys, Conversion Provider Not In - 12/19/2006 8:04 PM EST Report Number: [id number] Report Status: Signed Type: COLONOSCOPY Date: 12/19/2006 20:04 INTRODUCTION: 51 year old female patient presents for an elective outpatient colonoscopy. The indication for the procedure was surveillance for colonic polyps. CLINICAL HISTORY & PHYSICAL EXAMINATION: The patient's clinical history and physical examination were performed and are documented in the patient's record. CONSENT: The benefits, risks, and alternatives to the procedure were discussed and informed consent was obtained from the patient. PREPARATION: EKG, pulse, pulse oximetry and blood pressure monitored. MEDICATIONS: - Versed 4 mg IV before the procedure - fentanyl 100 mcg IV before the procedure PROCEDURE: Rectal exam: Normal. The endoscope was passed with ease under direct visualization to the terminal ileum confirmed by landmarks. The quality of the preparation was excellent. Retroflexion was performed in the rectum. Mallampati Classification: Class 1: Uvula, faucial pillars, soft palate visible. ASA Classification: Class 2: Patient has mild to moderate systemic disturbance that may or may not be related to the disorder requiring surgery. FINDINGS: There were multiple small scattered diverticula present in the sigmoid. A cold biopsy was obtained from a probable lipoma in the ascending colon. A cold biopsy was obtained from a small 2mm polyp in the sigmoid colon. The colonoscopy was otherwise normal. COMPLICATIONS: There were no complications associated with the procedure. IMPRESSION: 1. Multiple small scattered diverticula in the sigmoid. [562.10]. A cold biopsy was obtained from the ascending colon. A cold biopsy was obtained from the sigmoid. RECOMMENDATION: - Follow-up on the results of biopsy specimens in 5 days. PROCEDURE CODES: 65312: COLONOSCOPY TO CECUM AND BIOPSY. PERFORMED BY: Performed by Dr. Jovita Tapia. Conversion Provider Not In Sys GI PROCED URE ORDERABLES from Last 3 Months or Most Recently Relevant to Health Maintenance Care Teams [employer] Relationship Specialty Start Date End Date Divya Echeverria MD [address] [place] [phone] [email or web address] - General Internal Medicine 06/02/17 Anayeli Ferguson MD [address] [place] [phone] [email or web address] Medical Oncology 06/06/19 Additional Source Comments The information contained in this document represents components of the legal health record. It is not the complete legal health record.[facility]
--- OUTSIDE RECORDS SUMMARY | 2024-12-25 11:22 | XMS_ITS | Clinical Summary ---
Author Organization [address] [place] [address] [place] [phone] Phone Care Team Providers Care Test Design Engineer Name Role Phone Divya Echeverria MD Primary Care Provider [phone] Allergies Active Allergy Reactions Criticality Noted Date Comments Cefadroxil Rash Low 09/07/2023 Cephalexin Rash Low 09/07/2023 Sulfa (Sulfonamide Antibiotics) Rash High 05/2023 Medications Medication Sig Dispensed Refills Start Date End Date Status albuterol HFA (PROAIR HFA ; PROVENTIL HFA ; VENTOLIN HFA) 90 mcg/actuation inhaler Inhale 2 puffs into the lungs. 07/13/2018 Active alendronate (FOSAMAX) 70 mg tablet Take 1 tablet (70 mg total) by mouth every 7 days. 08/07/2023 Active amLODIPine (NORVASC) 10 mg tablet Take 1 tablet (10 mg total) by mouth every night at bedtime. 07/23/2023 Active calcium carbonate-vitamin D3 600 mg-5 mcg (200 unit) per tablet Take by mouth. 02/01/2008 Acti ve cetirizine (ZyrTEC) 10 mg tablet Take 1 tablet (10 mg total) by mouth 2 (two) times a day. 07/13/2018 Active DULoxetine (CYMBALTA) [address] capsule Take 1 capsule (30 mg total) by mouth daily. 08/29/2023 Active apixaban (Eliquis) 5 mg tablet Take 1 tablet (5 mg total) by mouth 2 (two) times a day. 06/21/2023 Active gabapentin (NEURONTIN) 300 mg capsule Take 1 capsule (300 mg total) by mouth every night at bedtime. 07/23/2023 Active omeprazole (PriLOSEC) [address] capsule Take 1 capsule (20 mg total) by mouth daily. 07/23/2023 Active oxyCODONE-acetaminophe n (PERCOCET) 5-325 mg per tablet Take 2 tablets by mouth every 6 (six) hours as needed. 09/07/2023 Active pravastatin (PRAVACHOL) 80 mg tablet Take 1 tablet (80 mg total) by mouth every night at bedtime. 07/23/2023 Active budesonide-formoteroL (Symbicort) 80-4.5 mcg/actuation inhaler 2 puffs 2 (two) times a day. 08/28/2023 Active Active Problems Problem Noted Date Diagnosed Date Bimalleolar fracture, right, closed, with routine healing, subsequent encounter 09/05/2023 Encounters Date Type Department Care Team Description 11/22/2024 8:05 AM EST Ancillary Procedure [facility] [address] [place] [address] 10/01/2024 1:00 PM EST Ancillary Procedure [facility] - [address] [place] [address] Bilateral lower extremity edema from Last 3 Months Surgical History Surgery Date Site/Laterality Comments BREAST LUMPECTOMY Left PROCEDURE: HISTORICAL BREAST LUMPECTOMY OTHER SURGICAL HISTORY PROCEDURE: HISTORY OTHER; COMMENT: Laminectomy OTHER SURGICAL HISTORY PROCEDURE: HISTORY OTHER; COMMENT: open reduction of fracture w/ internal fixation - left hip osteoporotic fx COLONOSCOPY 02/23/2016 PROCEDURE: HISTORICAL COLONOSCOPY OTHER SURGICAL HISTORY PROCEDURE: HISTORY OTHER; COMMENT: Termination of x2 FEMUR FRACTURE SURGERY 10/11/2018 PROCEDURE: MO OPEN TX FEMORAL FRACTURE DISTAL MED/LAT CONDYLE; COMMENT: Treatment of intertrochanteric, peritrochanteric, or subtrochanteric femoral fracture; with intramedullary implant,with or without interlocking screws and/or cerclage OTHER SURGICAL HISTORY 11/09/2010 PROCEDURE: SKIN EXCISION OTHER SURGICAL HISTORY PROCEDURE: BREAST RECONSTRUCTION; COMMENT: w/ TRAM flap MASTECTOMY PROCEDURE: HISTORICAL MASTECTOMY TONSILLECTOMY PROCEDURE: HISTORICAL TONSILLECTOMY Medical History Medical History Date Comments Restless legs DX:Restless legs Chronic bronchitis (CMS/HCC) DX: Chronic bronchitis (HCC) GERD (gastroesophageal reflux disease) DX:GERD (gastroesophageal reflux disease) Peripheral neuritis DX:Periphera l neuritis Osteoporotic fracture of lef t hip (CMS/HCC) DX:Osteoporotic fracture of left hip (HCC) Acid reflux DX:Acid reflux Lymphedema of left arm DX:Lymphe aníbal of left arm Osteopenia DX:Osteopenia Peripheral neuropathy DX:Periphe ral neuropathy Family History Medical History Relation Name Comments Bladder Cancer Mother Uterine cancer Mother Relation Name Status Comments Mother Social History Tobacco Use Types Packs/Day Years Used Date Smoking Tobacco: Former Cigarettes Q uit: 11/28/1996 Smokeless Tobacco: Never Alcohol Use Standard Drinks/Week Comments Yes 0 (1 standard drink = 0.6 oz pur e alcohol) Sex and Gender Information Value Date Recorded Sex Assigned at Not on file Gender Identity Not on file Sexual Orientation Not on file Job Start Date Occupation Industry Not on file Not on file Not on file Obstetrics History Last Filed Vital Signs Vital Sign Reading Time Taken Comments Blood Pressure 137/97 10/01/2024 1:36 PM EST Pulse 68 07/13/2024 7:46 AM EDT Temperature - - Respiratory Rate - - Oxygen Saturation - - Inhaled Oxygen Concentration - - Weight 85.7 kg (189 lb) 10/01/2024 1:36 PM EST Height 165.1 cm (5' 5 ) 10/01/2024 1:36 PM EST Body Mass Index 31.45 10/01/2024 1:36 PM EST Plan of Treatment Upcoming Encounters Date Type Department Care Team (Late st Contact Info) Description 07/15/2025 10:30 AM EDT Ancillary Procedure [facility] [address] [facility] [address] [place] [address] Health Maintenance Due Date Last Done Comments Breast Cancer Screening 1955 RSV Immunization Patients 60+ Years Old (1 - Risk 60-74 years 1-dose series) 2014 Cholesterol Screening (Lipid Panel) 11/07/2022 Colorectal Cancer Screening: Colonoscopy 11/07/2022 Depression Screening 11/07/2022 Falls Risk Assessment 11/07/2022 Hepatitis C Screening 11/07/2022 Medicare Annual Wellness Visit 11/07/2022 Social Influencers of Health Screening 11/07/2022 Hypertension/CHF/CAD Annual BMP Blood Test 07/18/2025 07/18/2024, 06/13/2024 Osteoporosis Screening (Bone Density Screening) 09/18/2031 09/18/2021 DTaP,Tdap,and Td Vaccines (4 - Td or Tdap) 02/20/2034 02/21/2024, 12/21/2013, 04/09/2004 Zoster Vaccines Completed 01/12/2019, 09/26/2018 Pneumococcal Vaccine: 65+ Years Completed 10/05/2020, 09/13/2019 Influenza Vaccine Completed 08/20/2024, , 09/27/2022, Additional history exists COVID-19 Vaccine Completed 09/08/2024, , 09/27/2022, Additional history exists HIB Vaccines Aged Out No longer eligi ble based on patient's age to complete this topic HPV Vaccines Aged Out No longer eligi ble based on patient's age to complete this topic Hepatitis A Vaccines Aged Out No long er eligible based on patient's age to complete this topic Hepatitis B Vaccines Aged Out No long er eligible based on patient's age to complete this topic IPV Vaccines Aged Out No longer eligi ble based on patient's age to complete this topic MMR Vaccines Aged Out No longer eligi ble based on patient's age to complete this topic Meningococcal ACWY Vaccine Aged Out N o longer eligible based on patient's age to complete this topic RSV Immunization Patients Under 20 months Aged Out No longer eligible based on patient's age to complete this topic Varicella Vaccines Aged Out No longer eligible based on patient's age to complete this topic Medical Devices Implanted Type Area Safety Relief Valve Technician Device Identifier Shelf Expiration Date Model / Serial / Lot Medt-Card Heath Xt Dr Marsh [id number] Implanted: (Quantity not on file) Cardiac Pacemaker [employer] - CARDIAC RHYTH-CRDM HEMA XT DR MARSH [id number] / [id number] / Plate Fibula 4h Variax Stry-Tram [id number] Implanted:Qty : 1 on 09/07/2023 by Krisitan Teresa MD Implants Right: Ankle JAH TRAUMA / / Screw Bone Fthrd 3.5x14mm Stry-Tram [id number] Implanted:Qty : 1 on 09/07/2023 by Kristian Teresa MD Implants Right: Ankle JAH TRAUMA [id number] / / Screw Bone Fthrd 3.5x12mm Stry-Tram [id number] Implanted:Qty : 2 on 09/07/2023 by Kristian Teresa MD Implants Right: Ankle JAH TRAUMA [id number] / / Screw Bone Fthrd 3.5x16mm Stry-Tram [id number] Implanted:Qty : 3 on 09/07/2023 by Kristian Teresa MD Implants Right: Ankle JAH TRAUMA [id number] / / Screw Lcking 3.5x16mm Thrd T10 Stry-Tram [id number] Implanted:Qty : 1 on 09/07/2023 by Kristian Teresa MD Implants Right: Ankle JAH TRAUMA [id number] / / Screw Lcking T8 3.5x18mm Stry-Howm [id number] Implanted:Qty : 2 on 09/07/2023 by Kristian Teresa MD Implants Right: Ankle [employer] [id number] / / Screw Lcking T10 3.5x20mm Full Thread Stry-Tram [id number] Implanted:Qty : 2 on 09/07/2023 by Kristian Teresa MD Implants Right: Ankle JAH TRAUMA [id number] / / Screw Fadumo Ti 4x38mm Ns Stry-Howm [id number] Implanted:Qty : 1 on 09/07/2023 by Kristian Teresa MD Right: Ankle [employer] [id number] / / Procedures Procedure Name Priority Date/Time Associated Diagnosis Comments CARDIAC DEVICE CHECK- REMOTE- MURJ Routine 11/22/2024 8:00 AM EST TRANSTHORACIC ECHOCARDIOGRAM (TTE) COMPLETE W/ CONTRAST Routine 10/01/2024 2:28 PM EST Bilateral lower extremity edema from Last 3 Months Results * Cardiac device check - Remote- MURJ (11/22/2024 8:00 AM EST) Date Time Interrogation Session [id number] CV DEVICE CHECK Type Interrogation Session Remote CV DEVICE CHECK Implantable Pulse Generator Safety Relief Valve Technician MDT CV DEVICE CHECK Implantable Pulse Generator Type IPG CV DEVICE CHECK Implantable Pulse Generator Model Heath XT DR MRI [id number] CV DEVICE CHECK Implantable Pulse Generator Serial Number [id number] CV DEVICE CHECK Implantable Pulse Generator Implant Date 20240615 CV DEVICE CHECK Battery Remaining Longevity 138.0 CV DEVICE CHECK Battery Voltage 3.120 CV D EVICE CHECK Battery CURER FOAM RUBBER Trigger 2.625 CV DEVICE CHECK Battery Status Middle of Service CV DEVICE CHECK Jose Statistic RA Percent Paced 0.01 CV DEVICE CHECK Jose Statistic RV Percent Paced 99.76 CV DEVICE CHECK Atrial Tachy Statistic AT/AF Bowie Percent 100.00 CV DEVICE CHECK Lead Channel Sensing Intrinsic Amplitude 1.250 CV DEVICE CHECK Lead Channel Setting Sensing Sensitivity 0.30 CV DEVICE CHECK Lead Channel Impedance Value 437 CV DEVICE CHECK Lead Channel Setting Pacing Amplitude 3.500 CV DEVICE CHECK Lead Channel Setting Pacing Pulse Width 0.4 CV DEVICE CHECK Lead Channel Sensing Intrinsic Amplitude 6.375 CV DEVICE CHECK Lead Channel Setting Sensing Sensitivity 2.80 CV DEVICE CHECK Lead Channel Impedance Value 437 CV DEVICE CHECK Lead Channel Pacing Threshold Amplitude 1.125 CV DEVICE CHECK Lead Channel Pacing Threshold Pulse Width 0.4 CV DEVICE CHECK Lead Channel RV Pacing Threshold Date 2024-11-05 CV DEVICE CHECK Lead Channel Setting Pacing Amplitude 2.250 CV DEVICE CHECK Lead Channel Setting Pacing Pulse Width 0.4 CV DEVICE CHECK Jose Setting Mode (NBG Code) DDD CV DEVICE CHECK Jose Setting Lower Rate Limit 60 CV DEVICE CHECK Jose Setting AT Mode Switch Rate 171 CV DEVICE CHECK Jose Setting Maximum Tracking Rate 130 CV DEVICE CHECK Jose Setting Maximum Sensor Rate 130 CV DEVICE CHECK Jose Setting PAV Delay 180 CV DEVICE CHECK Jose Setting JESSICA Delay 150 CV DEVICE CHECK Zone Setting Type Category AT/AF CV DEVICE CHECK Rate 171 CV DEVICE CHECK Therapies Some Rx Off CV DEVIC E CHECK Zone Setting Status Monitor CV DEVICE CHECK Zone ID 2 CV DEVICE CHECK Zone Setting Type Category VT CV DEVICE CHECK Rate 150 CV DEVICE CHECK Zone Setting Status ENABLED CV DEVICE CHECK Zone ID 6 CV DEVICE CHECK Date of Service 2024-11-25 CV DEVICE CHECK Anatomical Region Laterality Modality Device Interroga tion 11/15/2024 6:38 AM EST Impressions 11/22/2024 7:56 AM EST Normal Remote: No Events * Normal Device Function * Alerts or events: None * Battery: OK, 11.50 yrs * Sensing, impedance and thresholds reviewed * Programmed parameters reviewed * Presenting rhythm reviewed * Heart Rate Histograms reviewed * No significant changes noted Narrative Procedure Note Jeevan Willis MD - 11/22/2024 IMPRESSION: Normal Remote: No Events * Normal Device Function * Alerts or events: None * Battery: OK, 11.50 yrs * Sensing, impedance and thresholds reviewed * Programmed parameters reviewed * Presenting rhythm reviewed * Heart Rate Histograms reviewed * No significant changes noted Jeevan Willis MD CV IMPLANTABLE CARDI AC DEVICE PROCEDURES * (ABNORMAL) TRANSTHORACIC ECHOCARDIOGRAM (TTE) COMPLETE W/ CONTRAST (10/01/2024 2:28 PM EST) LV EDV (A2C) 105 mL CV PACS LV EDV (A4C) 84 mL CV PACS LV Diastolic Volume (BP) 98 46 - 106 mL CV PACS LV ESV (A2C) 46 mL CV PACS LV ESV (A4C) 45 mL CV PACS LV Systolic Volume (BP) 49(A) 14 - 42 mL CV PACS IVSD 1.1(A) 0.6 - 0.9 cm CV PACS LVIDD 4.3 3.8 - 5.2 cm CV PACS LVIDS 3.0 2.2 - 3.5 cm CV PACS LVOT Diameter 1.9 cm CV PACS LVOT Mean Chandan 0.8 m/s CV PACS LVOT Mean Grad 3 mmHg CV PACS LVOT Mean Grad 3 mmHg CV PACS LVOT Mean Grad 3 mmHg CV PACS LVOT Mean Grad 3 mmHg CV PACS LVOT Peak VTI 25.2 cm CV PACS LVOT Peak Chandan 1.4 m/s CV PACS LVOT Peak Gradient 7 mmHg CV PACS LVPWD 1.1(A) 0.6 - 0.9 cm CV PACS MV E' Tissue Velocity Lateral 14 cm/s CV PACS MV E' Tissue Velocity Septal 9 cm/s CV PACS Ejection Fraction (A2C) 57 % CV PACS Ejection Fraction (A4C) 47 % CV PACS Ejection Fraction (BP) 50 % CV PACS LVOT Area 2.8 cm2 CV PACS LVOT Stroke Volume 72 mL CV PACS Left Atrium Minor [place] 7.0 cm CV PACS Left Atrium Major [place] 6.9 cm CV PACS LA Area Sys (A2C) 32 cm2 CV PACS LA Area Sys (A4C) 29 cm2 CV PACS LA Volume (BP) 108 mL CV PACS LA Size 5.0 cm CV PACS RA Area 29.8 cm2 CV PACS RA 2D Volume 111 mL CV PACS AV Mean Gradient 13 mmHg CV PACS Ao VTI 48.8 cm CV PACS AV Peak Chandan 2.5 m/s CV PACS AV Peak Gradient 25 mmHg CV PACS AV Area Continuity Equation 1.5 cm2 CV PACS AV Area Peak Velocity 1.5 cm2 CV PACS Aortic Arch 3.5 cm CV PACS Ascending Aorta 3.9 cm CV PACS Aortic Sinus Valsalva 3.6 cm CV PACS IVC Proximal 2.2 cm CV PACS MV Deceleration [place]one 5.6 m/s2 CV PACS E Wave Deceleration Time 190 119 - 242 ms CV PACS MV PHT 56 ms CV PACS MV Peak E Chandan 1.11 m/s CV PACS MV Mean Gradient 2 mmHg CV PACS MV Mean Gradient 2 mmHg CV PACS MV Mean Gradient 2 mmHg CV PACS MV Mean Gradient 2 mmHg CV PACS MV Mean Gradient 2 mmHg CV PACS MV VTI 24.4 cm CV PACS Mitral Valve Max Velocity 1.3 m/s CV PACS MV Peak Gradient 7 mmHg CV PACS MV Area PHT 3.9 cm2 CV PACS MV Area Continuity Equation 2.9 cm2 CV PACS PV Acceleration Time 102 ms CV PACS PV Mean Gradient 2 mmHg CV PACS PV VTI 16.2 cm CV PACS PV Peak Velocity 1.0 m/s CV PACS PV Peak Gradient 4 mmHg CV PACS RV Diastolic Basal Dimension 5.9(A) 2.5 - 4.1 cm CV PACS RV S' 9 cm/s CV PACS TAPSE 23 mm CV PACS TR Peak Velocity 3.00 m/s CV PACS TR Peak Gradient 36 mmHg CV PACS LV ESV Index (A4C) 23 mL/m2 CV PACS LV EDV Index (A4C) 44 mL/m2 CV PACS E/E' Ratio Septal 12 CV PACS E/E' Ratio Averaged 10 CV PACS LVOT Stroke Index 37 mL/m2 CV PACS LA Dimension Index 2D 2.6 cm/m2 CV PACS Relative Wall Thickness ratio 0.51 CV PACS LVOT:AV VTI Index 0.52 CV PACS FS 30 % CV PACS LV Mass 2D 163 g CV PACS Ascending Aorta Index 2.02 cm/m2 CV PACS MV VTI:LVOT VTI ratio 1.0 CV PACS LVOT flow 227 mL/s CV PACS RA 2D Volume Index 58 mL/m2 CV PACS CHIKI Index (VTI) 0.76 cm2/m2 CV PACS CHIKI Index (Pk Chandan) 0.78 cm2/m2 CV PACS LVIDD Index 2.23 cm/m2 CV PACS LVIDS Index 1.55 cm/m2 CV PACS AV Velocity Ratio 0.56 CV PACS E/E' Ratio Lateral 8 CV PACS LV Systolic Volume Index (BP) 25 mL/m2 CV PACS LV Diastolic Volume Index (BP) 51 mL/m2 CV PACS LA Volume Index (BP) 56 mL/m2 CV PACS LV Mass Index 2D 84 g/m2 CV PACS LV EDV Index (A2C) 54 mL/m2 CV PACS LV ESV Index (A2C) 24 mL/m2 CV PACS BSA 1.98 m2 CV PACS Anatomical Region Laterality Modality Ultrasound Narrative 10/04/2024 10:04 AM EST ?Left ventricle cavity size is normal. Left ventricular systolic function is low normal with an ejection fraction of 50-55%. ?No regional LV wall motion abnormalities noted. ?Left ventricle mild hypertrophy. ?The right ventricle is dilated. Probably normal systolic function. The PASP is elevated. ?The atria are dilated. The right atrial pressure is 15 mmHg. ?Aortic valve demonstrates mild stenosis. ?Tricuspid valve demonstrates moderate regurgitation with a centrally directed jet. ?The ascending aorta is mildly dilated (3.9 cm). Left Ventricle Left ventricle cavity size is normal. There is mild hypertrophy. Systolic function is low normal with an ejection fraction of 50-55%. End-systolic volume is normal. There are no regional LV wall motion abnormalities. Unable to assess diastolic function. Right Ventricle Right ventricle was not well visualized. The RV is dilated. Systolic function is normal. Left Atrium Left atrium volume index is severely increased. Right Atrium Right atrium cavity is moderately dilated. IVC/SVC Inferior vena cava is dilated. Mitral Valve There is annular calcification. There is mild regurgitation with a centrally directed jet. There is no evidence of mitral valve stenosis. Tricuspid Valve The leaflets exhibit normal excursion. There is moderate regurgitation with a central jet. There is no evidence of tricuspid valve stenosis. The right ventricular systolic pressure is elevated. Aortic Valve The aortic valve is trileaflet. There is trace regurgitation with a centrally directed jet. There is mild stenosis. Pulmonic Valve The pulmonic valve was not well visualized. There is trace pulmonic valve regurgitation. There is no evidence of pulmonic valve stenosis. Ascending Aorta The ascending aorta is mildly dilated (3.9 cm). Pericardium Pericardium appears normal. There is no pericardial effusion. Study Details Overall the study quality was suboptimal. Definity contrast was given to enhance imaging. Study was difficult due to: poor endocardial visualization. Iraida Greer NP CV ECHO PROCED URES from Last 3 Months Care Teams Test Design Engineer Relationship Specialty Start Date End Date Divya Echeverria MD [address] [place] [address] [place] PCP - General Internal Medicine 02/23/22
--- OUTSIDE RECORDS SUMMARY | 2024-12-25 11:22 | XMS_ITS | Encounter Summary ---
Author Organization [employer] [facility] Address [phone] [facility] [place] [address] Care Team Providers Care Scrap Cutter Name Role Phone Divya Echeverria MD Primary Care Provi campbell Anayeli Ferguson MD Unavailable Reason for Visit * Reason Onset Date Comments Care Coordination 11/26/2024 Encounter Details Date Type Department Care Team (Late st Contact Info) Description 11/26/2024 Telephone [facility], Priya Callahan [facility], [facility] [address] [place] [address] [phone] Belinda Masterson RN [address] [place] [phone] [email or web address] Care Coordination Social History Tobacco Use Types Packs/Day Years [...] Orientation Straight documented as of this encounter Progress Notes * Belinda Masterson RN - 11/26/2024 3:25 PM EST Contacted by patient requesting call back from team for recently diagnosed esophageal hernia. I called, no answer, no name on vm will send PG message advising she contact her PCP for referral. Last seen by Dr. Ferguson 11/20/23 68-year-old woman who has history of remote left sided occult breast cancer, who underwent mastectomy and anthracycline-based chemotherapy,1999. She was found to be ER positive, HER-2 positive and received. mastectomy ACT chemotherapy No current meds. Deisi Goodman DNP updated. documented in this encounter Plan of Treatment Upcoming Encounters Date Type Department Care Team (Late st Contact Info) Description 01/01/2025 11:00 AM EST Office Visit [facility], [facility], [facility] [address] [place] [address] Mata Guidry, [address] [id number] [email or web address] Anayeli Ferguson MD [address] [place] [address] [email or web address] 01/18/2025 8:45 AM EST Office Visit [facility] [address] [facility] [address] [place] [address] Aquiles Alarcon MD [address] [place] [address] [address] [place] [address] [email or web address] documented as of this encounter Visit Diagnoses Not on filedocumented in this encounter Additional Health Concerns Assessment Noted Time PHQ-9 Depression Total Score: 0 07/31/20 15 11:59 AM EDT PHQ-2 Depression Total Score: 0 07/31/20 15 11:59 AM EDT documented as of this encounter Care Teams Scrap Cutter Relationship Specialty Start Date End Date Divya Echeverria MD [address] [place] [phone] [email or web address] PCP - General Internal Medicine 06/02/17 Anayeli Ferguson MD [address] [place] [phone] [email or web address] Medical Oncology 06/06/19 documented as of this encounter Additional Source Comments The information contained in this document represents components of the legal health record. It is not the complete legal health record.[facility]
--- OUTSIDE RECORDS SUMMARY | 2024-12-25 11:22 | XMS_ITS | Data Portability ---
Author Organization [place] [facility],, MADDI PEDERSEN MD Address [address] [address] Assessment No assessment recorded. Plan of Treatment Reminders Order Date Submit Date Provider Last Modified By Organization Details Last Modified Time Details Appointments None recorded. Lab None recorded. Referral None recorded. Procedures medication administrat ion (PROC) 2020 021 [id number] Not available 11:15:09 Surgeries None recorded. Imaging None recorded. Medication Orders None recorded. Patient TargetsNo targets recorded. Patient InstructionsNo instructions recorded. Reason for Referral None Reported. Medical Equipment None Reported. Allergies No known drug allergies Medications Name Sig Start Date Stop Date Status Note LastModified by Organization Details LastModified Time doxycycline hyclate 100 mg capsule TAKE 1 CAPSULE BY MOUTH TWICE A DAY WITH MEALS FOR 14 DAYS active Not Available Not Available No t Available pravastatin 80 mg tablet active Not Available Not Available Not Available amlodipine 10 mg tablet active Not Available Not Available Not Available gabapentin 300 mg capsule active Not Available Not Available Not Available omeprazole 20 mg capsule,kaden yed release active Not Available Not Available Not Available Pneumovax-23 25 mcg/0.5 mL injection syringe VACCINATION ADMINISTERE D BY PHARMACIST active Not Available Not Available N ot Available G Tussin AC 10 mg-100 mg/5 mL oral liquid TAKE 10MLS (2 TEASPOONFUL S) BY MOUTH RAJ 6-8 HOURS active Not Available Not Available No t Available Fluad Quad (65 yr up)(PF) 60 mcg (15 mcg x 4)/0.5mL IM syringe VACCINATION ADMINISTERE D BY PHARMACIST active Not Available Not Available N ot Available Vitals Date Recorded Body temperature Provider Name a nd Address Organization Details Last Updated DateTime 12/12/2020 97.7 [degF] Kami Novak [place] - [facility], 12/12/2020 10:07:21 Social History None recorded. Functional Status None recorded. Mental Status None recorded. Family History Nothing Reported. Medical History No medical history recorded. Gynecological HistoryNo gynecological history recorded. Obstetrics History GPAL:G 0 P 0 0 0 0 Immunizations Vaccine Type Date Status Note Provider Nam e and Address Organization Details Recorded Time COVID-19, mRNA, LNP-S, PF, 100 mcg/0.5mL dose or 50 mcg/0.25mL dose 12/12/2020 completed Maddi Pedersen MD [address], [place], [address], [place] [facility], 12/12/2020 11:00:49 COVID-19, mRNA, LNP-S, PF, 100 mcg/0.5mL dose or 50 mcg/0.25mL dose 01/09/2021 completed Maddi Pedersen MD [address], [place], [address], [facility] - [facility], 01/09/2021 12:10:07 SARS-COV-2 (COVID-19) vaccine, UNSPECIFIED 12/12/2020 completed Kami brown [place] - [facility] in [facility], 12/12/2020 10:07:58 Past Encounters Encounter ID Performer Location Encounter Start Date Encounter Closed Date Diagnosis/Indication Diagnosis SNOMED-CT Code Diagnosis ICD10 Code Diagnosis Note [id number] MD MADDI Gardiner MD [address] [place] [address] 12/12/2020 10:00:26 12/12/2020 12:45:18 Administration of viral vaccine [id number] Z23 [id number] MD MADDI Gardiner MD [address] [place] [address] 01/09/2021 11:29:01 01/09/2021 14:33:25 Administration of viral vaccine [id number] Z23 Health Concerns Section Related Observation LastModified by Organization Detai ls LastModified Time None Recorded Concern Status LastModified by Organization Details LastModified Time None Recorded Advance Directives Directive None Recorded Payers Encounter Date Sequence Insurance Name Policy Number Policy Joya Covered Member ID Joya Member ID Guarantor Name 12/12/2020 1 [employer] (MEDICARE REPLACEMENT PPO) [id number] Rupal Nobles MEBTPSPH Rupal Nobles 01/09/2021 MEDICARE B-[place]: [facility] [employer] Rupal Nobles [id number] Rupal Nobles OBGyn Episode No OBEpisode recorded.
--- OUTSIDE RECORDS SUMMARY | 2024-12-25 11:22 | XMS_ITS | Encounter Summary ---
Author Organization [facility] Address [phone] [facility] [place] [address] Care Team Providers Care Face Boss Name Role Phone Divya Echeverria MD Primary Care Provi campbell Anayeli Ferguson MD Unavailable [phone] Encounter Details Date Type Department Care Team (Late st Contact Info) Description 04/17/2024 Transcribe Orders [facility] [address] [facility] [address] [place] [address] Divya Echeverria MD [address] [place] [phone] Social History Tobacco Use Types Packs/Day Years [...] Oncology, [facility], [facility] 450 [facility], [address] [place] [address] Mata Guidry, [address] [address] [email or web address] Anayeli Ferguson MD [address] [place] [address] [email or web address] 01/18/2025 8:45 AM EST Office [place] [facility] [place] [address] [place] [address] Aquiles Alarcon MD [address] [place] [phone] [email or web address] [email or web address] documented as of this encounter Visit Diagnoses Not on filedocumented in this encounter Additional Health Concerns Assessment Noted Time PHQ-9 Depression Total Score: 0 07/31/20 15 11:59 AM EDT PHQ-2 Depression Total Score: 0 07/31/20 15 11:59 AM EDT documented as of this encounter Care Teams Face Boss Relationship Specialty Start Date End Date Divya Echeverria MD [address] [place] [phone] PCP - General Internal Medicine 06/02/17 Anayeli Ferguson MD [address] [place] [address] [email or web address] Medical Oncology 06/06/19 documented as of this encounter Additional Source Comments The information contained in this document represents components of the legal health record. It is not the complete legal health record.[facility]
--- OUTSIDE RECORDS SUMMARY | 2024-12-25 11:22 | XMS_ITS | Encounter Summary ---
Author Organization [employer] [facility] Address [phone] [facility] [place] [address] Care Team Providers Care Securities Settlement Processor Name Role Phone Divya Echeverria MD Primary Care Provi campbell Anayeli Ferguson MD Unavailable [phone] Encounter Details Date Type Department Care Team (Late st Contact Info) Description 09/10/2020 Procedure Pass [facility] [place], Mammography, Samina Lank Imaging Department [address] [place] [address] Social History Tobacco Use Types Packs/Day Years [...] Oncology, [facility], [facility] [place] 450 [facility], Fl [address] [place], [place] [id number] Mata Guidry, CABLE RESPOOLER 75 [place] [address] [email or web address] Anayeli Ferguson MD 450 [place] [address] [email or web address] 01/18/2025 8:45 AM EST Office [place] [facility] [place] & [place]intestinal Surgery 55 [facility] 460 [place] [address] Aquiles Alarcon MD 55 [facility] 460 [place] [address] [email or web address] documented as of this encounter Visit Diagnoses Not on filedocumented in this encounter Additional Health Concerns Assessment Noted Time PHQ-9 Depression Total Score: 0 07/31/20 15 11:59 AM EDT PHQ-2 Depression Total Score: 0 07/31/20 15 11:59 AM EDT documented as of this encounter Care Teams Securities Settlement Processor Relationship Specialty Start Date End Date Divya Echeverria MD [address] [place] [phone] [email or web address] PCP - General Internal Medicine 06/02/17 Anayeli Ferguson MD [address] [place] [phone] [email or web address] Medical Oncology 06/06/19 documented as of this encounter Additional Source Comments The information contained in this document represents components of the legal health record. It is not the complete legal health record.[facility]
--- OUTSIDE RECORDS SUMMARY | 2024-12-25 11:23 | XMS_ITS | Encounter Summary ---
Author Organization [facility] Address [phone] [address] [place] [address] Care Team Providers Care Director Of Acquisition Marketing Name Role Phone Sunny Rae MD Unavailable Unava ilable Divya Juarez MD Primary Care Provi campbell Anayeli Ferguson MD Unavailable [phone] Encounter Details Date Type Department Care Team (Late st Contact Info) Description 06/06/2019 Ancillary Orders [facility] S[facility] Health[facility]Osteoporosis Ctr. and Bone Density Unit [address] [place] [address] Divya Juarez MD [address] [place] [phone] [email or web address] Social History Tobacco Use Types Packs/Day Years [...] Oncology, [facility], [facility] 450 [facility] Britt [facility], Fl 9 [place] [address] Mata Guidry, FORGE OPERATOR [address] [place] [address] [email or web address] Anayeli Ferguson MD 450 [place] [address] [email or web address] 01/18/2025 8:45 AM EST Office Visit [facility] [place] & Gastrointestinal Surgery [address] [address] Aquiles Alarcon MD [address] [address] [email or web address] documented as of this encounter Results * BD DXA AXIAL (SPINE) WITH HIP (06/06/2019 4:18 PM EDT) Anatomical Region Laterality Modality Bone Density Bone Density Narrative 06/20/2019 4:29 PM EDT Name: ?PEGGY NOBLES Age: ? 63 Sex: ? Female Ethnicity: ? White Date of : 1955 Clinician ID: Exam Date: ? June 06, 2019 Donna Brewster M.D., Director [facility] and Bone Density Unit [address] [place] [phone] Referring Physician: DIVYA JUAREZ M.D. Study: Bone densitometry was performed on Hologic DXA. Accession number: [id number] INDICATION: 63 y/o postmenopausal woman with history of osteopenia, left femur fracture from fall at age 63, laminectomy, breast cancer, vitamin D 1000iu, GERD, omeprazole, gabapentin, s/p radiation therapy and s/p chemotherapy. Follow-up BMD. BONE DENSITY: ? Compared ??Compared to ??Classification* ?? Percent ?Bone ? To Young ??Age-Adjusted ? Significant Region ?Density ??Normals ?? Normals ? Change Since ?(gm/cm2) (T-Score) (Z-Score) ? Baseline ?? Previous ? S.D. ?S.D. ? 07/31/15 ?08/25/17 AP Spine (L1, L2, L3) 0.921 ?-0.9 ?0.8 ?Normal ?No change ??No change ? 06/06/19 Femoral Neck (Right) ??0.738 ?-1.0 ?0.5 ?Normal ? Baseline Total Hip (Right) ? 0.850 ?-0.8 ?0.5 ?Normal ? Baseline *World Health Organization criteria for BMD interpretation classify patients as: Normal (T-score at or above -1.0), Osteopenic (T-score between -1.0 and -2.5), or Osteoporotic (T-score at or below -2.5). INTERPRETATION: OSTEOPOROSIS is present by history of fracture. SPINE: Normal bone density of the lumbar spine compared with age-adjusted controls. Left Hip: Due to surgery, the hip is not suitable for analysis. Right HIP: Normal bone density of the hip compared with age-adjusted controls. FRACTURE RISK ASSESSMENT: FRAX not reported because osteoporosis by fracture criteria. RECOMMENDATIONS: If clinically indicated, would consider/continue therapy to reduce further bone loss after an evaluation to rule out secondary causes of low bone mass. Would consider follow-up BMD in one to two years of the spine and hip. Maddi Combs M.D. ralph grijalva Divya Juarez MD IMG BD BONE DENSITY DEXA documented in this encounter Visit Diagnoses Diagnosis Osteopenia of other site documented in this encounter Additional Health Concerns Assessment Noted Time PHQ-9 Depression Total Score: 0 07/31/20 15 11:59 AM EDT PHQ-2 Depression Total Score: 0 07/31/20 15 11:59 AM EDT documented as of this encounter Care Teams Director Of Acquisition Marketing Relationship Specialty Start Date End Date Divya Juarez MD [address] [place] [phone] [email or web address] PCP - General Internal Medicine 06/02/17 Sunny Rae MD Historical LMR Provider 04/10/15 09/09/20 Anayeli Ferguson MD [address] [place] [phone] [email or web address] Medical Oncology 06/06/19 documented as of this encounter Additional Source Comments The information contained in this document represents components of the legal health record. It is not the complete legal health record.[facility]
--- OUTSIDE RECORDS SUMMARY | 2024-12-25 11:24 | XMS_ITS | Clinical Summary ---
Author Organization [facility] Address [address] [id number] Care Team Providers Care Metal Polisher Name Role Phone Divya Echeverria MD Primary Care Provider [phone] Allergies Active Allergy Reactions Criticality Noted Date Comments Cefadroxil Rash Low 09/07/2023 Cephalexin Rash Low 09/07/2023 Sulfa Antibiotics Rash High 09/03/2023 Medications Medication Sig Dispensed Refills Start Date End Date Status amLODIPine (NORVASC) tablet 10 mg Take 1 tablet (10 mg total) by mouth every night at bedtime. 0 07/23/2023 Active Eliquis 5 MG TABS tablet Take 1 tablet (5 mg total) by mouth 2 (two) times a day. 0 06/21/2023 Active Symbicort 80-4.5 MCG/ACT inhaler 2 puffs 2 (two) times a day. 0 08/28/2023 Active DULoxetine (CYMBALTA) DR capsule 30 mg Take 1 capsule (30 mg total) by mouth daily. 0 08/29/2023 Active gabapentin (NEURONTIN) 300 MG capsule Take 1 capsule (300 mg total) by mouth every night at bedtime. 0 07/23/2023 Active omeprazole (PriLOSEC) 20 MG capsule Take 1 capsule (20 mg total) by mouth daily. 0 07/23/2023 Active pravastatin (PRAVACHOL) tablet 80 mg Take 1 tablet (80 mg total) by mouth every night at bedtime. 0 07/23/2023 Active alendronate (FOSAMAX) tablet 70 mg Take 1 tablet (70 mg total) by mouth every 7 days. 0 08/07/2023 Active oxyCODONE-acetaminoph en (PERCOCET) 5-325 MG per tablet Take 2 tablets by mouth every 6 (six) hours as needed. 40 tablet 0 09/07/2023 Active albuterol 108 (90 Base) MCG/ACT inhaler Inhale 2 puffs into the lungs. 0 07/13/2018 Active Calcium Carbonate-Vitamin D 600-5 MG-MCG TABS Take by mouth. 0 02/01/2008 Act chary cetirizine (ZyrTEC) 10 MG tablet Take 1 tablet (10 mg total) by mouth 2 (two) times a day. 0 07/13/2018 Active Active Problems Problem Noted Date Diagnosed Date Bimalleolar fracture, right, closed, with routine healing, subsequent encounter 09/05/2023 Social History Tobacco Use Types Packs/Day Years Used Date Smoking Tobacco: Former Cigarettes Q uit: 1999 Smokeless Tobacco: Never Tobacco Cessation:Counseling Given: Not Answered Alcohol Use Standard Drinks/Week Comments Yes 2 (1 standard drink = 0.6 oz pur e alcohol) couple times a week Sex and Gender Information Value Date Recorded Sex Assigned at Female 08/06/2023 9:24 AM EDT Gender Identity Female 08/06/2023 9:24 AM EDT Sexual Orientation Not on file Job Start Date Occupation Industry Not on file Not on file Not on file Last Filed Vital Signs Vital Sign Reading Time Taken Comments Blood Pressure 133/94 12/13/2023 11:18 AM EST Pulse 81 12/13/2023 11:18 AM EST Temperature 36.7 ??C (98 ??F) 09/07/2023 3:30 PM EDT Respiratory Rate 8 09/07/2023 4:12 PM EDT Oxygen Saturation 95% 09/07/2023 4:12 PM EDT Inhaled Oxygen Concentration - - Weight 81.6 kg (180 lb) 12/13/2023 11:18 AM EST Height 157.5 cm (5' 2 ) 12/13/2023 11:18 AM EST Body Mass Index 32.92 12/13/2023 11:18 AM EST Plan of Treatment Health Maintenance Due Date Last Done Comments Hepatitis C Screening 1955 Depression Screening 1966 BMI Counseling 1972 Preventative Health Evaluation 1972 Colon Cancer Screening (Colonoscopy) 1999 Breast Cancer Screening (Mammogram) 2004 Fall Risk Assessment 2019 Osteoporosis Screening (DEXA Scan) 2019 DTap / Tdap / Td (3 - Td or Tdap) 12/21/2023 12/21/2013, 04/09/2004 COVID-19 Vaccine ( season) 2024 12/12/2020 Influenza Vaccine (#1) 2024 9, 09/06/2018, 09/08/2017, Additional history exists RSV Adult > 60+ Yrs or (1 - 1-dose 75+ series) 2029 Shingrix-Zoster Vaccine Completed 01/12/2019, 09/26 Pneumococcal Vaccine Completed 10/05/2020, 09/13/20 19 Hepatitis B Vaccines Aged Out No long er eligible based on patient's age to complete this topic RSV Ped < 20 months Aged Out No longe r eligible based on patient's age to complete this topic Medical Devices Implanted Type Area Education Supervisor Device Identifier Shelf Expiration Date Model / Serial / Lot Plate Fibula 4h Variax Stry-Tram [id number] - [id number] Implanted:Qty: 1 on 09/07/2023 by Kristian Teresa MD at [facility] Location Plate Right: Ankle [employer] / / Screw Bone Fthrd 3.5x14mm Stry-Tram [id number] - [id number] Implanted:Qty: 1 on 09/07/2023 by Kristian Teresa MD at [facility] Location Screw Right: Ankle [employer] [id number] / / Screw Bone Fthrd 3.5x12mm Stry-Tram [id number] - [id number] Implanted:Qty: 2 on 09/07/2023 by Kristian Teresa MD at [facility] Location Screw Right: Ankle [employer] [id number] / / Screw Bone Fthrd 3.5x16mm Stry-Tram [id number] - [id number] Implanted:Qty: 3 on 09/07/2023 by Kristian Teresa MD at [facility] Location Screw Right: Ankle [employer] [id number] / / Screw Lcking 3.5x16mm Thrd T10 Stry-Tram [id number] - [id number] Implanted:Qty: 1 on 09/07/2023 by Kristian Teresa MD at [facility] Location Screw Right: Ankle [employer] [id number] / / Screw Lcking T8 3.5x18mm Stry-Howm [id number] - [id number] Implanted:Qty: 2 on 09/07/2023 by Kristian Teresa MD at [facility] Location Screw Right: Ankle [employer] [id number] / / Screw Lcking T10 3.5x20mm Full Thread Stry-Tram [id number] - [id number] Implanted:Qty: 2 on 09/07/2023 by Kristian Teresa MD at [facility] Location Screw Right: Ankle [employer] [id number] / / Screw Fadumo Ti 4x38mm Ns Stry-Howm [id number] - [id number] Implanted:Qty: 1 on 09/07/2023 by Kristian Teresa MD at [facility] Location Right: Ankle [employer] [id number] / / Explanted Type Area Education Supervisor Device Identifier Shelf Expiration Date Model / Serial / Lot Screw Fadumo Ti 4x38mm Ns Stry-Howm [id number] - [id number] Explanted:Qty: 1 on 09/07/2023 at [facility] Location Right: Ankle [employer] [id number] / / Advance Directives For more information, please contact: [phone] Latest Code Status on File Code Status Date Activated Date Inactivated Comments Full Code 09/07/2023 12:54 PM 09/07/2023 10:56 PM T his code status was ascertained in the following way: discussion with patient . Care Teams Metal Polisher Relationship Specialty Start Date End Date Divya Echeverria MD [address] [place] [phone] PCP - General Internal Medicine 09/05/23
--- OUTSIDE RECORDS SUMMARY | 2024-12-25 11:24 | XMS_ITS | Patient Health Record ---
Author Organization [facility] Address [address] [facility] [address] [place] [address] Care Team Providers Care Manufacturers Service Representative Name Role Phone SHAINA ECHEVERRIA Primary Care Provider AlMontse wahltrina Unavailable [phone] Allergies Allergen (clinical drug ingredient) Drug/Non Drug Allergy documented on EMR Reaction Allergy Type Onset Date Status Keflex rash Drug Allergy Active cefadroxil Cefadroxil rash Drug Allergy Activ e Substance with sulfonamide structure and antibacterial mechanism of action (substance) Sulfa Antibiotics rash Drug Allergy Active Reason For Referral No Information Medications Medication SIG (Take, Route, Frequency, Duration) Notes Start Date End Date Status amLODIPine Besylate 10 MG 1 tablet Orally Once a day Active Pravastatin Sodium 80 MG 1 tablet Orally Once a day Active Furosemide 20 MG 1/2 tablet Orally On ce a day Active Gabapentin 300 MG 1 capsule Orally Onc e a day Active Vitamin D Active Eliquis 5 MG as directed Orally T wice a day Active Calcium Active Omeprazole Active DULoxetine HCl Activ e Immunizations Vaccine Route Administration Date Status Comme nts COVID 19 Moderna Unknown 09/27/2022 Administered COVID 19 Moderna Unknown 07/11/2023 Administered COVID Moderna Unknown 12/12/2020 Administered COVID Moderna Unknown 01/09/2021 Administered COVID Moderna Unknown 03/15/2022 Administered Influenza High Dose Unknown 08/20/2024 Administered Pneumococcal polysaccharide PPV23 Unknown 10/05/2020 Ad ministered Shingrix Unknown 09/26/2018 Administered Shingrix Unknown 01/12/2019 Administered Td (adult), absorbed Unknown 02/21/2024 Administered TDAP Unknown 12/21/2013 Administered Problems Problem Type SNOMED Code ICD Code Onset Dates Problem Status W/U Status Risk Notes Problem Mixed hyperlipidemia (854032520) Mixed hyperlipidemia (E78.2) Active confirmed Problem Essential hypertension (45851136) Essential hypertension (I10) Active confirmed Problem 977938403 Chronic atrial fibrillation (I48.20) Active confirmed Vital Signs Heart Rate 92 /min 10/19/2024 Temperature 97.6 degrees Fahrenheit 10/19/2024 Blood pressure diastolic 90 mm Hg 10/19/2024 Oximetry 94 % 10/19/2024 Height 5'5.5 in 10/19/2024 Blood pressure systolic 132 mm Hg 10/19/2024 Weight 193 lbs 10/19/2024 BMI 31.62 kg/m2 10/19/2024 Encounters Encounter Location Date Provider Diagnosis [facility] [address] [phone] 10/19/2024 Aroosa Alam Essential hypertensi on I10 ; Mixed hyperlipidemia [...] she is thinking about surgical intervention at [facility]. CT also showed granulomas in the lungs [...] was done in 2022 she follows with [facility] Bone density was done in 2022 at [facility] and according to patient it was normal. Pap smear also [facility] she does not need it anymore she [...] she is thinking about surgical intervention at [facility]. CT also showed granulomas in the lungs [...] was done in 2022 she follows with [facility] Bone density was done in 2022 at [facility] and according to patient it was normal. Pap smear also [facility] she does not need it anymore she [...] she is thinking about surgical intervention at [facility]. CT also showed granulomas in the lungs [...] was done in 2022 she follows with [facility] Bone density was done in 2022 at [facility] and according to patient it was normal. Pap smear also [facility] she does not need it anymore she is up-to-date on flu, with pneumonia and shingles Plan Of Treatment Pending Test Test Name Order Date CBC with Diff, Platelet, [id number] 09/29 Albumin/Creatinine Ratio,Urine-[id number] Lipid Panel With LDL/HDL Ratio-[id number] Comp. Metabolic Panel [id number] 2023 Next Appt Details Provider Name:Kobe wahl, 04/16/2025 09:00:00 AM, [address] [place] [address] [address], [place], [address], Insurance Providers Payer Name Payer Address Payer Phone Subscriber Number Group Number Insured Name Patient Relationship to Insured Coverage Start Date Coverage End Date [employer] [address] [address] [place] [address] [id number] Rupal Nobles Self - patient is the insured 4 Medical (General) History Surgical History Surgery Date(Month/Year) status post pacemaker Dr. Crabtree Status post left mastectomy with reconstruction surgery at [facility] 20 years ago Status post right ankle fracture and rep air 2022 status post left femur fracture after a fall repair 2018 Failed cardioversion
--- OUTSIDE RECORDS SUMMARY | 2024-12-25 11:24 | XMS_ITS | Encounter Summary ---
Author Organization [facility] Address [phone] [facility] [place] [address] Care Team Providers Care Electrical Intern Name Role Phone Sunny Rae MD Unavailable Unava Divya Guerra MD Primary Care Provi campbell Anayeli Ferguson MD Unavailable [phone] Encounter Details Date Type Department Care Team (Late st Contact Info) Description 08/11/2020 Procedure Pass [facility] [place], Mammography, Samina Lank Imaging Department [address] [place] [address] Social History Tobacco Use Types Packs/Day Years [...] Oncology, [facility], [facility] [place] [address] [facility], Fl [address] [place] [address] Mata Guidry, CASINO ASSISTANT MANAGER [address] [place] [address] [email or web address] Anayeli Ferguson MD [address] [place] [address] [email or web address] 01/18/2025 8:45 AM EST Office Visit [facility] General & Gastrointestinal Surgery [address] [place] [phone] Aquiles Alarcon MD [address] [address] [email or web address] documented as of this encounter Visit Diagnoses Not on filedocumented in this encounter Additional Health Concerns Assessment Noted Time PHQ-9 Depression Total Score: 0 07/31/20 15 11:59 AM EDT PHQ-2 Depression Total Score: 0 07/31/20 15 11:59 AM EDT documented as of this encounter Care Teams Electrical Intern Relationship Specialty Start Date End Date Divya Echeverria MD [address] [place] [phone] [email or web address] PCP - General Internal Medicine 06/02/17 Sunny Rae MD Historical LMR Provider 04/10/15 09/09/20 Anayeli Ferguson MD [address] [place] [phone] [email or web address] Medical Oncology 06/06/19 documented as of this encounter Additional Source Comments The information contained in this document represents components of the legal health record. It is not the complete legal health record.[facility]
--- OUTSIDE RECORDS SUMMARY | 2024-12-25 11:24 | XMS_ITS | Encounter Summary ---
Author Organization [facility] Address [phone] [place] [address] Care Team Providers Care Ceo And Co Founder Name Role Phone Divya Juarez MD Primary Care Provi campbell Anayeli Ferguson MD Unavailable Encounter Details Date Type Department Care Team (Latest Contact Info) Description 09/17/2020 Ancillary Orders [facility] Rad[facility] Department [address] [place] [address] [id number] [place] [address] Divya Juarez MD [address] [place] [phone] [email or web address] Asymptomatic age-related postmenopausal state Social History Tobacco Use Types Packs/Day Years [...] [facility], [facility] [address] [facility], [address] [place] [address] Mata Guidry, [employer] [address] [place] [address] [email or web address] Anayeli Ferguson MD [address] [place] [address] [email or web address] 01/18/2025 8:45 AM EST Office Visit [facility] General & Gastrointestinal Surgery [address] [address] Aquiles Alarcon MD [address] [address] [email or web address] documented as of this encounter Results * BD DXA AXIAL (SPINE) WITH HIP (09/18/2021 10:50 AM EDT) Anatomical Region Laterality Modality Bone Density Bone Density Narrative 09/30/2021 9:15 AM EDT Name: ?Rupal Nobles Age: ? 66 Sex: ? Female Ethnicity: ? White Date of : 1955 Clinician ID: Exam Date: ? September 18, 2021 Donna Brewster M.D., Director [facility] Bone Density Unit [address] [place] [address], [place], [place] ??[id number] Referring Physician: DIVYA JUAREZ M.D. ? Study: Bone densitometry was performed on Hologic DXA. Accession number: [id number] INDICATION: 66 y/o postmenopausal woman with history of osteoporosis, fosamax, progressive height loss, left femur fracture from fall at age 63, left elbow fracture from fall at age 44, laminectomy, breast cancer, vitamin D 1200iu, s/p radiation therapy, s/p chemotherapy and past smoking. Follow-up BMD. BONE DENSITY: ? Compared ??Compared to ??Classification* ?? Percent ?Bone ? To Young ??Age-Adjusted ? Significant Region ?Density ??Normals ?? Normals ? Change Since ?(gm/cm2) (T-Score) (Z-Score) ? Baseline ?? Previous ? S.D. ?S.D. ? 07/31/15 ?06/06/19 AP Spine (L1, L2, L3) 0.982 ?-0.3 ?1.5 ?Normal ?6.0% ?6.6% ? 06/06/19 ? Femoral Neck (Right) ??0.786 ?-0.6 ?1.1 ?Normal ?6.5% ? Total Hip (Right) ? 0.880 ?-0.5 ?0.8 ?Normal ?3.5% ? *World Health Organization criteria for BMD interpretation classify patients as: Normal (T-score at or above -1.0), Osteopenic (T-score between -1.0 and -2.5), or Osteoporotic (T-score at or below -2.5). INTERPRETATION: OSTEOPOROSIS is present by history of fracture. SPINE: Bone density of the lumbar spine at the high end of the normal range compared with age-adjusted controls. HIP: Bone density of the femoral neck at the high end of the normal range compared with age-adjusted controls. ??Normal bone density of the total hip compared with age-adjusted controls. FRACTURE RISK ASSESSMENT: FRAX not reported because osteoporosis by fracture criteria and treated for osteoporosis. RECOMMENDATIONS: If clinically indicated, would continue therapy to reduce further bone loss. ??Would consider follow-up BMD in one to two years of the spine and hip. Maddi Combs M.D. ralph dania Divya Juarez MD IMG BD BONE DENSITY DEXA documented in this encounter Visit Diagnoses Diagnosis Asymptomatic age-related postmenopausal state documented in this encounter Additional Health Concerns Assessment Noted Time PHQ-9 Depression Total Score: 0 07/31/20 15 11:59 AM EDT PHQ-2 Depression Total Score: 0 07/31/20 15 11:59 AM EDT documented as of this encounter Care Teams Ceo And Co Founder Relationship Specialty Start Date End Date Divya Juarez MD [address] [place] [phone] [email or web address] PCP - General Internal Medicine 06/02/17 Anayeli Ferguson MD [address] [place] [phone] [email or web address] Medical Oncology 06/06/19 documented as of this encounter Additional Source Comments The information contained in this document represents components of the legal health record. It is not the complete legal health record.[facility]
== END 2024-12-25 11:11 | disposition home or self-care (01) ==
PROVIDERS: PCP Internal Medicine; Visit Provider Hospitalist
DX: R91.8 Other nonspecific abnormal finding of lung field (principal); G47.33 Obstructive sleep apnea (adult) (pediatric); I48.20 Chronic atrial fibrillation, unspecified; K44.9 Diaphragmatic hernia without obstruction or gangrene
CPT/HCPCS: 99214

== ENCOUNTER → 2024-12-25 10:26 | Outpatient (BNVA) | payer MEDICARE, SELFPAY | PROVIDERS: PCP Internal Medicine; Visit Provider Hospitalist | DX: R91.8 Other nonspecific abnormal finding of lung field (principal); G47.33 Obstructive sleep apnea (adult) (pediatric); I48.20 Chronic atrial fibrillation, unspecified; K44.9 Diaphragmatic hernia without obstruction or gangrene | CPT/HCPCS: 99212 ==

== ENCOUNTER 2025-06-19 11:11 | Outpatient (AMB) | payer MEDICARE, SELFPAY ==
[2025-06-19 11:13] VITALS: BP 122/80; PULSE 91; O2SAT 97; BMI 32.7
--- NOTE | 2025-06-19 11:13 | MHC.OFFVIS ---
Vital Signs 06/19/25 11:13 Height 5 ft 5.5 in Weight 199 lb 8.293 oz BMI 32.7 BP 122/80 Blood Pressure Location Rt brachial Position Sitting Pulse 91 Pulse Source Pulse Oximeter Pulse Oximetry (%) 97 Oxygen Delivery Method Room Air Intake Visit Reasons: Bronchitis Allergies cephalexin (From Keflex) Adverse Reaction (Severe, Verified 06/19/25 11:16) Rash Sulfa Drug Adverse Reaction (Severe, Uncoded 06/19/25 11:16) Rash HPI Comments Details: The patient is a 69 year woman presenting with cough and also persistent dyspnea on exertion. Moderate severity. Apparently patient has not a condition of atrial fibrillation. She is followed closely by Cardiology. She is on a Spacemaker. In addition to that she has been having worsening respiratory symptoms including nonproductive cough chest congestion and shortness of breath. She was evaluated at [facility] where she had a pulmonary function study demonstrating normal obstructive nor restrictive ventilatory defects. In addition to that he had a chest x-ray demonstrating no acute disease although she does have the pacemaker placement and some back issues. The patient was given a diagnosis of asthma. She had been on Advair. She also has a rescue inhaler. She knows to use the rescue inhaler as needed and also prior to exercise. She is an avid swimmer. Recently she had a battery change for her pacemaker so she has not been able to swim in the last week. Because of her ongoing shortness of breath not responding to the respiratory therapy she has been scheduled for a cardiopulmonary exercise tolerance at [facility]. In the meantime the patient was taken for brief walking oximetry. Her heart rate did increase to about 115 and pulse ox was about 95%. Her dyspnea score 5/10. The patient also on examination does have some fine inspiratory crackles at the bases suggesting some degree of interstitial lung disease. 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 She is not sure that has anything to do with it. She did smoke poor. In light but very short. Denies any other exposure to any fumes or toxins. Based on her crackles in her respiratory symptoms I do believe a CT scan would be helpful to rule out interstitial lung disease. Finally. The patient does have a history sleep apnea. Along with cardiovascular disease in uncontrolled atrial fibrillation the patient needs to be further evaluated for that. She does have an elevated Memphis score of 10/24. She also lower extremity edema. Along with cardiovascular risk factors in her arrhythmias the patient will benefit from an in-lab study at this time. Also to note the patient does have significant lower extremity edema. It may indeed be part of the calcium channel estela effect although will go ahead and give her 3 days of Lasix to help with the volume status specially with increased heart rate. 09/24/2024 The patient is here for pulmonary follow-up visit. Overall the patient has been doing well. She continues have daytime drowsiness. Her Memphis score is elevated 11/24. The patient did have a sleep study. We did personally reviewed. No evidence of any significant REM sleep. Likely that the sleep apnea is keeping her from getting adequate REM sleep in their poor sleep hygiene. The patient does have underlying sleep apnea and does have cardiovascular risk factors. Therefore will have to start her back on CPAP at this time. She had tried once in the past and she had a hard time with. I am hopeful that she tolerates the therapy better this time. If she has any difficulty she will call so we can assist her and help her process. In addition to that the patient did have a CT scan of the chest which we personally reviewed. The patient does have some radiation changes primarily which she had radiation for her breast cancer. Mainly on the left side. She does have some atelectasis but otherwise her lungs are clear without any evidence of any interstitial lung disease which is reassuring. She does have changes consistent with bronchitis and chronic at this time. The patient also has a moderate hiatal hernia that may be contributing to her cough and also chronic bronchitis. We did talk about the reflux diet and changes she could make at this time. She does have a GI doctor that she may benefit from seeing in the future. In the meantime she is going to sleep elevated we did talk about risers with the head of the bed specially if she gets used to her CPAP. It was also noted patient has small subcentimeter pulmonary nodules that will need follow-up but will discuss that further during her next visit. Also to note that the CT scan of the chest demonstrated some cardiac changes. She does follow-up with cardiology at [facility]. Will go ahead and fax over the report so they can have it as well. 12/25/2024 the patient is here for a pulmonary follow-up visit. Overall she is doing okay. She has been struggling with her cough has been bothering her and it has been difficult to use her CPAP because of that. She has been using the CPAP though and we did review together. Appears that her therapy his affecting beneficial although she needs a higher pressure. I did increase her minimum pressure from 12-14. She is going to use it regularly. She understands that this therapies more for his cardiovascular risk. Will help her continue with respiratory medicines to try to minimize the cough and therefore she can not tolerated better. She is also has underlying reflux symptoms. She does have a hiatal hernia and she will follow-up with General surgery regarding hard hernia. I did have them make her CD so she can take the CD with her to her general surgeon's office so they can review the images. The patient follow-up in 6 months if she has any issues prior to that she will call for an earlier assessment. 06/19/2025 the patient is here for pulmonary follow-up visit. Overall she is doing okay. She did go to [place] and get a endoscopy done. The thought was that she may benefit from fundoplication but she would have to lose weight. She is considering a GLP 1 inhibitor. I do believe that Zepbound may be a good option for her In the meantime she has underlying sleep apnea. She has been struggling using her CPAP because she did have some other medical issues that kept her from being able to use it. She hurt her knee and is being evaluated for that. In addition to that to develop cellulitis of the right ankle. She did have an ultrasound that ruled out DVT. 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 She also has compression stockings. I explained to her the importance of using her CPAP therapy as this will improve her lower extremity edema as well. Once she starts the PAP therapy she can always call if she needs the pressures adjusted. Will follow-up in the spring if she has not issues prior to that she will call for an earlier evaluation. [facility] Medical History (Updated 06/19/25 @ 23:09 by Amauri Das MD) Hiatal hernia Pulmonary nodules Atrial fibrillation TRINA (obstructive sleep apnea) Chest crackles Social History Patient Tobacco Use Status: Former Tobacco user Tobacco use type: Cigarette Years Smoked: 10 Years Review of Systems Const Denies fever(s) Eyes Reports no additional complaints ENT Reports dizziness and Reports nasal congestion Card Denies chest pain and Reports dyspnea on exertion Resp Reports cough, Reports dyspnea on exertion and Denies wheezing GI Reports no additional complaints Musc Reports abnormal gait and Reports myalgias Skin/Breast Denies rash Neuro Reports abnormal gait and Reports dizziness Be/Lymph Reports no additional complaints Aller/Immun Denies wheezing Physical Exam Vital Signs: Last Vital Signs Pulse 91 06/19/25 11:13 BP 122/80 06/19/25 11:13 Pulse Ox 97 06/19/25 11:13 Oxygen Delivery Method Room Air 06/19/25 11:13 BMI result Body Mass Index 32.7 Const General: comfortable HEENT Head: Yes normocephalic Neck Neck: Yes supple Chest Chest palpation & inspection: normal inspection of the chest Resp Effort & Inspection: normal respiratory effort Auscultation: no crackles and diminished lung sounds Cardio Heart sounds: S1 normal heart sound present and S2 normal heart sound present GI Palpation (GI): Soft to palpation Skin General skin exam: no rashes or lesions noted Extrem General: No cyanosis and Yes edema Assessment & Plan Assessment & Plan (1) Pulmonary nodules: Comment: appear to be small granulomas from a previous infection. Code(s): R91.8 - Other nonspecific abnormal finding of lung field Category: Medical (2) TRINA (obstructive sleep apnea): Code(s): G47.33 - Obstructive sleep apnea (adult) (pediatric) Category: Medical (3) Atrial fibrillation: Code(s): I48.91 - Unspecified atrial fibrillation Category: Medical Qualifiers: Atrial fibrillation type: unspecified chronic Qualified Code(s): I48.20 - Chronic atrial fibrillation, unspecified (4) Hiatal hernia: Code(s): K44.9 - Diaphragmatic hernia without obstruction or gangrene Category: Medical Plan continue APAP nasal steroid spray diuresis as tolerated continue respiratory therapy reflux diet should sleep elevated consider Zepbound F/U 8-10 months Coding Level of Care Code Est Pt Level 4 (36859) Diagnoses Pulmonary nodules R91.8 TRINA (obstructive sleep apnea) G47.33 Chronic atrial fibrillation I48.20 Atrial fibrillation type: unspecified chronic Hiatal hernia K44.9 Time Spent (min) 16
--- OUTSIDE RECORDS SUMMARY | 2025-06-19 12:14 | XMS_ITS | Clinical Summary ---
Author Organization [address] [place] [address] [place] [phone] Phone Care Team Providers Care Backrest Assembler Name Role Phone Divya Echeverria MD Primary Care Provider [phone] Allergies Active Allergy Reactions Criticality Noted Date Comments Cefadroxil Rash Low 09/07/2023 Cephalexin Rash,Other,Unknown Low 05/05/2000 fever Other Rash,Other 04/12/2022 Sulfa (Sulfonamide Antibiotics) Rash High 05/2023 Medications albuterol HFA (PROAIR HFA ; PROVENTIL HFA ; VENTOLIN HFA) 90 mcg/actuation inhaler Inhale 2 puffs into the lungs. 8 Active amLODIPine (NORVASC) 10 mg tablet Take 1 tablet (10 mg total) by mouth every night at bedtime. 3 Active calcium carbonate-vitam in D3 600 mg-5 mcg (200 unit) per tablet Take by mouth. 8 Active cetirizine (ZyrTEC) 10 mg tablet Take 1 tablet (10 mg total) by mouth 2 (two) times a day. 8 Active DULoxetine (CYMBALTA) [address] capsule Take 1 capsule (30 mg total) by mouth daily. 3 Active apixaban (Eliquis) 5 mg tablet Take 1 tablet (5 mg total) by mouth 2 (two) times a day. 3 Active gabapentin (NEURONTIN) 300 mg capsule Take 1 capsule (300 mg total) by mouth every night at bedtime. 3 Active omeprazole (PriLOSEC) [address] capsule Take 1 capsule (20 mg total) by mouth daily. 3 Active pravastatin (PRAVACHOL) 80 mg tablet Take 1 tablet (80 mg total) by mouth every night at bedtime. 3 Active budesonide-form oteroL (Symbicort) 80-4.5 mcg/actuation inhaler 2 puffs 2 (two) times a day. 3 Active furosemide (LASIX) 20 mg tablet TAKE ONE TABLET BY MOUTH EVERY DAY NEEDED FOR SWELLING 30 tablet 5 5 Active methocarbamoL (ROBAXIN) 500 mg tablet Take 1 tablet (500 mg total) by mouth 2 (two) times a day if needed for muscle spasms for up to 15 doses. 15 tablet 5 Active Additional Information Patient not taking.Reported on 05/15/2025 clindamycin (CLEOCIN) 300 mg capsule Take 1 capsule (300 mg total) by mouth 3 (three) times a day for 10 days. 30 each 5 05/25/20 25 Active Problems Problem Noted Date Diagnosed Date Bimalleolar fracture, right, closed, with routine healing, subsequent encounter 09/05/2023 Encounters Date Type Department Care Team Description 05/27/2025 9:25 AM EDT Ancillary Procedure [facility] - [facility] [address] [facility] [address] [place] [address] 05/15/2025 10:12 AM EDT - 05/15/2025 11:52 AM EDT Emergency [facility] Emergency [address] [place] [phone] Alexandrea Hoff MD Pain of right lower extremity (Primary Dx); Cellulitis of right lower extremity Discharge Disposition: Home or Self Care 05/14/2025 7:29 PM EDT - 05/14/2025 7:41 PM EDT Emergency [facility] Emergency [address] [place] [address] Leg edema (Primary Dx) Discharge Disposition: Home or Self Care 05/14/2025 Telephone [facility] - [facility] [place] [address] [place] [phone] Divya Echeverria MD Medical Records 05/14/2025 Telephone [facility] [address] [place] [phone] Iraida Greer NP medical records 05/07/2025 8:12 AM EDT - 05/07/2025 11:59 PM EDT Hospital Encounter [facility] MRI [address] [place] [phone] Anterior medial rotatory instability of knee, left Discharge Disposition: Home or Self Care 04/09/2025 2:45 PM EDT - 04/09/2025 7:06 PM EDT Emergency [facility] Emergency [address] [place] [address] Sprain of left knee, unspecified ligament, initial encounter (Primary Dx) Discharge Disposition: Home or Self Care from Last 3 Months Surgical History Surgery [...] of x2 FEMUR FRACTURE SURGERY 10/11/2018 PROCEDURE: MI OPEN TX FEMORAL FRACTURE DISTAL MED/LAT CONDYLE; COMMENT: Treatment of intertrochanteric, peritrochanteric, or subtrochanteric femoral fracture; with intramedullary implant,with or without interlocking screws and/or cerclage OTHER SURGICAL HISTORY 11/09/2010 PROCEDURE: SKIN EXCISION OTHER SURGICAL HISTORY PROCEDURE: BREAST RECONSTRUCTION; COMMENT: w/ TRAM flap MASTECTOMY PROCEDURE: HISTORICAL MASTECTOMY TONSILLECTOMY PROCEDURE: HISTORICAL TONSILLECTOMY Medical History Medical History Date Comments Restless legs DX:Restless legs Chronic bronchitis (CMS/HCC V24, CMS/HCC V28) DX:Chronic bronchitis (HCC) GERD (gastroesophageal reflux disease) DX:GERD (gastroesophageal reflux disease) Peripheral neuritis DX:Periphera l neuritis Osteoporotic fracture of lef t hip (CMS/HCC V24, CMS/HCC V28) DX:Osteoporotic fracture of left hip ([facility]) Acid reflux DX:Acid reflux Lymphedema of left [...] drink = 0.6 oz pur e alcohol) Comments Unknown Sex and Gender Information Value Date Recorded Sex Assigned at Female 04/09/2025 4:22 PM EDT Legal Sex Female 2:09 PM EST Gender Identity Not on file Sexual Orientation Not on file Obstetrics History Last Filed Vital Signs Vital Sign Reading Time Taken Comments Blood Pressure 141/97 05/15/2025 10:23 AM EDT Pulse 71 05/15/2025 10:05 AM EDT Temperature 36 C (96.8 F) 05/15/2025 10:19 AM EDT Respiratory Rate 18 05/15/2025 10:05 AM EDT Oxygen Saturation 100% 05/15/2025 10:05 AM EDT Inhaled Oxygen Concentration - - Weight 83.9 kg (185 lb) 05/15/2025 10:08 AM EDT Height 162.6 cm (5' 4 ) 05/15/2025 10:08 AM EDT Body Mass Index 31.76 05/15/2025 10:08 AM EDT Plan of Treatment Upcoming Encounters Date Type Department Care Team (Late st Contact Info) Description 07/15/2025 10:30 AM EDT Ancillary Procedure [facility] - [facility] [address] [facility] [address] [place] [address] Health Maintenance Due Date Last Done Comments Colorectal Cancer Screening: Colonoscopy 11/07/2022 Falls Risk Assessment 11/07/2022 Hepatitis C Screening 11/07/2022 Medicare Annual Wellness Visit 11/07/2022 Social Influencers of Health Screening 11/07/2022 Depression Screening 11/28/2024 COVID-19 Vaccine (8 - Moderna risk season) 2025 09/08/2024, 07/11/2023, 09/27/2022, Additional history exists Influenza Vaccine (#1) 2025 , 11/09/2023, 09/27/2022, Additional history exists Hypertension/CHF/CAD Annual BMP Blood Test 06/10/2026 06/10/2025, 07/18/2024, 06/13/2024 Breast Cancer Screening 11/27/2026 11/27/2024 RSV Immunization Adult Patients (1 - 1-dose 75+ series) 2029 Cholesterol Screening (Lipid Panel) 06/10/2030 06/10/2025 DTaP,Tdap,and Td Vaccines (4 - Td or Tdap) 02/20/2034 02/21/2024, 12/21/2013, 04/09/2004 Osteoporosis Screening (Bone Density Screening) 11/27/2034 11/27/2024, 09/18/2021 Zoster Vaccines Completed 01/12/2019, 09/26/2018 Pneumococcal Vaccine: 50+ Years Completed 10/05/2020, 09/13/2019 HIB Vaccines Aged Out No longer eligi [...] patient's age to complete this topic Meningococcal B Vaccine Aged Out No l onger eligible based on patient's age to complete this topic RSV Immunization Patients Under 20 months Aged Out No longer eligible based on patient's age to complete this topic Varicella Vaccines Aged Out No longer eligible based on patient's age to complete this topic Medical Devices Implanted Type Area Thrasher Feeder Device Identifier Shelf Expiration Date Model / Serial / Lot Medt-Card [place] Xt Dr Florian [id number] Implanted: (Quantity not on file) Cardiac Pacemaker [employer] - CARDIAC RHYTH-CRDM HEMA XT DR MRI [id number] / [id number] / Plate Fibula 4h Variax Stry-Tram [id number] Implanted:Qty : 1 on 09/07/2023 by Kristian Teresa MD Implants Right: Ankle JAH TRAUMA 40 / / Screw Bone Fthrd 3.5x14mm Stry-Tram [id number] Implanted:Qty : 1 on 09/07/2023 by Kristian Teresa MD Implants Right: Ankle JAH TRAUMA [id number] / / Screw Bone Fthrd 3.5x12mm Stry-Tram [id number] Implanted:Qty : 2 on 09/07/2023 by Kristian Teresa MD Implants Right: Ankle JAH TRAUMA [id number] / / Screw Bone Fthrd 3.5x16mm Stry-Tram [id number] Implanted:Qty : 3 on 09/07/2023 by Kristian Teresa MD Implants Right: Ankle JAH TRAUMA [id number] / / Screw Lcking 3.5x16mm Thrd T10 Stry-Tram [id number] Implanted:Qty : 1 on 09/07/2023 by Kristian Teresa MD Implants Right: Ankle JAH TRAUMA [id number] / / Screw Lcking T8 3.5x18mm Stry-Howm [id number] Implanted:Qty : 2 on 09/07/2023 by Kristian Teresa MD Implants Right: Ankle [employer] [id number] / / Screw Lcking T10 3.5x20mm Full Thread Stry-Tram [id number] Implanted:Qty : 2 on 09/07/2023 by Kristian Teresa MD Implants Right: Ankle JAH TRAUMA [id number] / / Screw Fadumo Ti 4x38mm Ns Stry-Howm [id number] Implanted:Qty : 1 on 09/07/2023 by Kristian Teresa MD Right: Ankle [employer] [id number] / / Procedures Procedure Name Priority Date/Time Associated Diagnosis Comments CBC WITH AUTO DIFFERENTIAL Routine 06/10/2025 12:13 PM EDT Mixed hyperlipidemia Essential hypertension, malignant CBC AND DIFFERENTIAL Routine 06/10/2025 12:13 PM EDT Mixed hyperlipidemia Essential hypertension, malignant LIPID PANEL WITH REFLEX TO DIRECT LDL Routine 06/10/2025 12:13 PM EDT Mixed hyperlipidemia Essential hypertension, malignant COMPREHENSIVE METABOLIC PANEL Routine 06/10/2025 12:13 PM EDT Mixed hyperlipidemia Essential hypertension, malignant MICROALBUMIN CREATININE URINE RATIO Routine 06/10/2025 12:13 PM EDT Mixed hyperlipidemia Essential hypertension, malignant CARDIAC DEVICE CHECK- REMOTE- MURJ Routine 05/27/2025 9:21 AM EDT VAS US DUPLEX LOWER EXT VENOUS BILAT STAT 05/15/2025 10:50 AM EDT Pain of right lower extremity MR KNEE WO CONTRAST LEFT Routine 05/07/2025 10:05 AM EDT Anterior medial rotatory instability of knee, left XR KNEE 3 VIEWS LEFT STAT 04/09/2025 5:00 PM EDT from Last 3 Months Results * Lipid panel with reflex to direct LDL (06/10/2025 12:13 PM EDT) Cholesterol 175 0 - 200 mg/dL LAB CHEMISTRY METHOD 06/10/2025 8:44 PM EDT [facility] Triglycerides 121 0 - 150 mg/dL LAB CHEMISTRY METHOD 06/10/2025 8:44 PM EDT [facility] HDL 88 >=40 mg/dL LAB CHEMISTRY METHOD 06/10/2025 8:44 PM EDT [facility] LDL Calculated 63 0 - 100 mg/dL LAB CHEMISTRY METHOD 06/10/2025 8:44 PM EDT [facility] VLDL Cholesterol Dimitry 24.2 mg/dL LAB CHEMISTRY METHOD 06/10/2025 8:44 PM EDT [facility] Non HDL Chol. (LDL+VLDL) 87 <145 mg/dL LAB CHEMISTRY METHOD 06/10/2025 8:44 PM EDT [facility] Chol/HDL Ratio 2.0 0.0 - 4.4 LAB CHEMISTRY METHOD 06/10/2025 8:44 PM EDT [facility] Blood Venous blood specimen / Unknown Venipuncture / Unknown 06/10/2025 12:13 PM EDT 06/10/2025 12:13 PM EDT us Carlos Singh MD LAB BLOOD ORDERABLES Final Resul t [facility] [address] [place] [address], [place] [phone] * (ABNORMAL) CBC auto differential (06/10/2025 12:13 PM EDT) WBC 6.0 4.8 - 10.8 K/mcL LAB HEMETOLOGY METHOD 06/10/2025 2:20 PM EDT [facility] RBC 4.50 3.80 - 4.80 M/mcL LAB HEMETOLOGY METHOD 06/10/2025 2:20 PM EDT [facility] Hemoglobin 13.5 11.5 - 16.0 g/dL LAB HEMETOLOGY METHOD 06/10/2025 2:20 PM EDT [facility] Hematocrit 42.3 35.0 - 47.0 % LAB HEMETOLOGY METHOD 06/10/2025 2:20 PM EDT [facility] MCV 93.2 79.0 - 98.0 FL LAB HEMETOLOGY METHOD 06/10/2025 2:20 PM EDT [facility] MCH 29.7 27.0 - 32.0 pcg LAB HEMETOLOGY METHOD 06/10/2025 2:20 PM EDT [facility] MCHC 31.9(L) 32.0 - 37.0 g/dL LAB HEMETOLOGY METHOD 06/10/2025 2:20 PM EDT [facility] RDW 14.6 11.0 - 15.0 % LAB HEMETOLOGY METHOD 06/10/2025 2:20 PM EDT [facility] Platelets 205 130 - 400 K/mcL LAB HEMETOLOGY METHOD 06/10/2025 2:20 PM EDT [facility] MPV 10.9 7.0 - 11.0 FL LAB HEMETOLOGY METHOD 06/10/2025 2:20 PM EDT [facility] NRBC 0.0 <1.0 % LAB HEMETOLOGY METHOD 06/10/2025 2:20 PM EDT [facility] NRBC Absolute 0.00 <0.10 K/mcL LAB HEMETOLOGY METHOD 06/10/2025 2:20 PM EDT [facility] Neutrophils Relative 58.8 % LAB HEMETOLOGY METHOD 06/10/2025 2:20 PM EDT [facility] Lymphocytes Relative 27.7 % [facility]OLOG[facility] Monocytes Relative 9.7 % LAB HEMETOLOGY METHOD 06/10/2025 2:20 PM EDT [facility] Eosinophils Relative 2.5 % LAB HEMETOLOGY METHOD 06/10/2025 2:20 PM EDT [facility] Basophils Relative 1.0 % LAB HEMETOLOGY METHOD 06/10/2025 2:20 PM EDT [facility] Immature Granulocytes Relative 0.3 % LAB HEMETOLOGY METHOD 06/10/2025 2:20 PM EDT [facility] Neutrophils Absolute 3.52 1.50 - 7.00 K/mcL LAB HEMETOLOGY METHOD 06/10/2025 2:20 PM EDT [facility] Lymphocytes Absolute 1.66 1.00 - 5.00 K/mcL LAB HEMETOLOGY METHOD 06/10/2025 2:20 PM EDT [facility] Monocytes Absolute 0.58 0.20 - 1.00 K/mcL LAB HEMETOLOGY METHOD 06/10/2025 2:20 PM EDT [facility] Eosinophils Absolute 0.15 0.00 - 0.50 K/mcL LAB HEMETOLOGY METHOD 06/10/2025 2:20 PM EDT [facility] Basophils Absolute 0.06 0.00 - 0.20 K/mcL LAB HEMETOLOGY METHOD 06/10/2025 2:20 PM EDT [facility] Immature Granulocytes Absolute 0.02 0.00 - 0.03 K/mcL LAB HEMETOLOGY METHOD 06/10/2025 2:20 PM EDT [facility] Blood Venous blood specimen / Unknown Venipuncture / Unknown 06/10/2025 12:13 PM EDT 06/10/2025 12:13 PM EDT us Carlos Singh MD LAB BLOOD ORDERABLES Final Resul t [facility] [address] [place] [address], * Microalbumin creatinine urine ratio (06/10/2025 12:13 PM EDT) Creatinine, Urine 18.0 mg/dL LAB CHEMISTRY METHOD 06/10/2025 9:52 PM EDT [facility] Microalb, Ur <5.0 0.0 - 29.0 mg/L LAB CHEMISTRY METHOD 06/10/2025 9:52 PM EDT [facility] Microalb/Creat Ratio <28 <30 mg/g creat LAB CHEMISTRY METHOD 06/10/2025 9:52 PM EDT [facility] Urine Urine specimen obtained by clean catch procedure / Unknown Non-blood Collection / Unknown 06/10/2025 12:13 PM EDT 06/10/2025 12:13 PM EDT us Carlos Singh MD LAB URINE ORDERABLES Final Resul t [facility] [address] [place] [address], [place] [phone] * (ABNORMAL) Comprehensive metabolic panel (06/10/2025 12:13 PM EDT) Sodium 138 133 - 145 mmol/L LAB CHEMISTRY METHOD 06/10/2025 8:[address] [facility] Potassium 3.6 3.5 - 5.5 mmol/L LAB CHEMISTRY METHOD 06/10/2025 8:[address] [facility] Chloride 104 96 - 110 mmol/L LAB CHEMISTRY METHOD 06/10/2025 8:[address] [facility] CO2 26 21 - 32 mmol/L LAB CHEMISTRY METHOD 06/10/2025 8:[address] [facility] Anion Gap 8 3 - 11 LAB CHEMISTRY METHOD 06/10/2025 8:[address] [facility] Glucose 75 70 - 100 mg/dL LAB CHEMISTRY METHOD 06/10/2025 8:[address] [facility] BUN 26(H) 5 - 25 mg/dL LAB CHEMISTRY METHOD 06/10/2025 8:[address] [facility] Creatinine 0.78 0.50 - 1.10 mg/dL LAB CHEMISTRY METHOD 06/10/2025 8:[address] [facility] eGFR 82 >=60 mL/min/1. 73m2 LAB CHEMISTRY METHOD 06/10/2025 8:[address] [facility] Comment:Calculation based on the Chronic Kidney Disease Epidemiology Collaboration (CKD-EPI) equation refit without adjustment for race. BUN/Creatinine Ratio 33.3 LAB CHEMISTRY METHOD 06/10/2025 8:23 PM EDT [facility] Calcium 9.1 8.5 - 10.5 mg/dL LAB CHEMISTRY METHOD 06/10/2025 8:[address] [facility] AST (SGOT) 26 10 - 42 unit/L LAB CHEMISTRY METHOD 06/10/2025 8:[address] [facility] ALT (SGPT) 26 10 - 60 unit/L LAB CHEMISTRY METHOD 06/10/2025 8:[address] [facility] Alkaline Phosphatase 84 42 - 121 unit/L LAB CHEMISTRY METHOD 06/10/2025 8:[address] [facility] Total Protein 7.8 6.0 - 8.0 g/dL LAB CHEMISTRY METHOD 06/10/2025 8:[address] [facility] Albumin 3.5 3.2 - 5.0 g/dL LAB CHEMISTRY METHOD 06/10/2025 8:[address] [facility] Total Bilirubin 0.3 0.0 - 1.4 mg/dL LAB CHEMISTRY METHOD 06/10/2025 8:[address] [facility] Blood Venous blood specimen / Unknown Venipuncture / Unknown 06/10/2025 12:13 PM EDT 06/10/2025 12:13 PM EDT us Carlos Singh MD LAB BLOOD ORDERABLES Final Resul t [facility] [address] [place] [address], * Cardiac device check - Remote- MURJ (05/27/2025 9:21 AM EDT) Date Time Interrogation Session [id number] CV DEVICE CHECK Type Interrogation Session Remote CV DEVICE CHECK Implantable Pulse Generator Thrasher Feeder MDT CV DEVICE CHECK Implantable Pulse Generator Type IPG CV DEVICE CHECK Implantable Pulse Generator Model Hema XT MRI [id number] CV DEVICE CHECK Implantable Pulse Generator Serial Number [id number] CV DEVICE CHECK Implantable Pulse Generator Implant Date 20240615 CV DEVICE CHECK Battery Remaining Longevity 107.0 CV DEVICE CHECK Battery Voltage 3.020 CV D EVICE CHECK Battery SUBSTANCE ABUSE COUNSELOR Trigger 2.625 CV DEVICE CHECK Battery Status Middle of Service CV DEVICE CHECK Jose Statistic RA Percent Paced 0.01 CV DEVICE CHECK Jose Statistic RV Percent Paced 99.22 CV DEVICE CHECK Atrial Tachy Statistic AT/AF [place] Percent 100.00 CV DEVICE CHECK Lead Channel Sensing Intrinsic Amplitude 0.750 CV DEVICE CHECK Lead Channel Setting Sensing Sensitivity 0.30 CV DEVICE CHECK Lead Channel Impedance Value 380 CV DEVICE CHECK Lead Channel Setting Pacing Amplitude 3.500 CV DEVICE CHECK Lead Channel Setting Pacing Pulse Width 0.4 CV DEVICE CHECK Lead Channel Sensing Intrinsic Amplitude 5.375 CV DEVICE CHECK Lead Channel Setting Sensing Sensitivity 2.80 CV DEVICE CHECK Lead Channel Impedance Value 418 CV DEVICE CHECK Lead Channel Pacing Threshold Amplitude 1.500 CV DEVICE CHECK Lead Channel Pacing Threshold Pulse Width 0.4 CV DEVICE CHECK Lead Channel RV Pacing Threshold Date 2025-05-15 CV DEVICE CHECK Lead Channel Setting Pacing Amplitude 3.250 CV DEVICE CHECK Lead Channel Setting Pacing [...] 6 CV DEVICE CHECK Date of Service 2025-05-27 CV DEVICE CHECK Anatomical Region Laterality Modality Device Interroga tion 05/15/2025 8:05 PM EDT Impressions 05/27/2025 7:37 AM EDT Normal Remote: No Events * Normal Device Function * Alerts or events: None * Battery: [place], 8.92 yrs * Sensing, impedance and thresholds reviewed * Programmed parameters reviewed * Presenting rhythm reviewed * Heart Rate Histograms reviewed * No significant changes noted Narrative Procedure Note Jeevan Willis MD - 05/27/2025 IMPRESSION: Normal Remote: No Events * Normal Device Function * Alerts or events: None * Battery: [place], 8.92 yrs * Sensing, impedance and thresholds reviewed * Programmed parameters reviewed * Presenting rhythm reviewed * Heart Rate Histograms reviewed * No significant changes noted us Jeevan Willis MD CV IMPLANTABLE CARDIAC DEVICE PROCEDURES Final Result * Vascular US duplex lower extremity venous bilateral (05/15/2025 10:50 AM EDT) Anatomical Region Laterality Modality Vascular, Abdomen Ultrasound 05/15/2025 10:5 1 AM EDT Impressions 05/15/2025 10:52 AM EDT 1. There is no evidence for deep venous thrombosis in the bilateral lower extremities. Report reviewed and signed by : Dr. Jayy Tobias on 05/15/2025 10:52 AM. Workstation Name - [id number] -------- FINAL REPORT -------- Dictated By: Jayy Tobias Dictated Date: 05/15/2025 10:51 ET Assigned Physician: Jayy Tobias Reviewed and Electronically Signed By: Jayy Tobias Signed Date: 05/15/2025 10:52 ET Workstation ID: [id number] Transcribed By: Self Edit Transcribed Date: 05/15/2025 10:51 ET Narrative 05/15/2025 10:52 AM EDT ULTRASOUND OF THE BILATERAL LOWER EXTREMITIES CLINICAL HISTORY: 69 years Female edema TECHNIQUE: Multiple ultrasound images of the bilateral lower extremities were obtained. Color doppler flow, spectral waveform analysis obtained. COMPARISON: None. FINDINGS: RIGHT LOWER EXTREMITY The right lower extremity greater saphenous, common femoral, profunda femoral, proximal superficial femoral, middle superficial femoral, distal superficial femoral, popliteal, posterior tibial, and peroneal veins demonstrate compressibility, phasic and augmented flow. There is no evidence for an obstructing venous thrombosis. LEFT LOWER EXTREMITY The left lower extremity greater saphenous, common femoral, profunda femoral, proximal superficial femoral, middle superficial femoral, distal superficial femoral, popliteal, posterior tibial, and peroneal veins demonstrate compressibility, phasic and augmented flow. There is no evidence for an obstructing venous thrombosis. Procedure Note Jayy Tobias MD - 05/15/2025 ULTRASOUND OF THE BILATERAL LOWER EXTREMITIES CLINICAL HISTORY: 69 years Female edema TECHNIQUE: Multiple ultrasound images of the bilateral lower extremitieswere obtained. Color doppler flow, spectral waveform analysis obtained. COMPARISON: None. FINDINGS: RIGHT LOWER EXTREMITY The right lower extremity greater saphenous, common femoral, profundafemoral, proximal superficial femoral, middle superficial femoral, distalsuperficial femoral, popliteal, posterior tibial, and peroneal veinsdemonstrate compressibility, phasic and augmented flow. There is noevidence for an obstructing venous thrombosis. LEFT LOWER EXTREMITY The left lower extremity greater saphenous, common femoral, profundafemoral, proximal superficial femoral, middle superficial femoral, distalsuperficial femoral, popliteal, posterior tibial, and peroneal veinsdemonstrate compressibility, phasic and augmented flow. There is noevidence for an obstructing venous thrombosis. IMPRESSION: 1. There is no evidence for deep venous thrombosis in the bilateral lowerextremities. Report reviewed and signed by : Dr. Jayy Tobias on 05/15/2025 10:52 AM.Workstation Name - [id number] -------- FINAL REPORT -------- Dictated By: Jayy Tobias Dictated Date: 05/15/2025 10:51 ET Assigned Physician: Jayy Tobias Reviewed and Electronically Signed By: Jayy Tobias Signed Date: 05/15/2025 10:52 ET Workstation ID: [id number] Transcribed By: Self Edit Transcribed Date: 05/15/2025 10:51 ET us Alexandrea Hoff MD CV VASCULAR PROCEDURES Final Result * MR Knee wo Contrast Left (05/07/2025 10:05 AM EDT) Anatomical Region Laterality Modality Lower Extremities, Knee Left Magnetic Resonance 05/07/2025 2:23 PM EDT Impressions 05/07/2025 3:11 PM EDT 1. Nondisplaced fracture of the posterior lateral tibial plateau. 2. Patchy marrow edema in the posterior medial tibial plateau and the lateral femoral condyle suggestive of bony contusions. 3. Possible subtle tear of the medial meniscus at the junction of the posterior horn and body segment. A [employer] message has been communicated to the office of HOWARD MUELLER via the [employer] System on 05/07/2025 3:11 PM, Message ID [id number] -------- FINAL REPORT -------- Dictated By: Edinson Landaverde Dictated Date: 05/07/2025 14:23 ET Assigned Physician: Edinson Landaverde Reviewed and Electronically Signed By: Edinson Landaverde Signed Date: 05/07/2025 15:11 ET Workstation ID: [id number] Transcribed By: Self Edit Transcribed Date: 05/07/2025 14:23 ET Narrative 05/07/2025 3:11 PM EDT PROCEDURE: MRI of the left knee without contrast. HISTORY: INSTABILITY OF LT KNEE. COMPARISON: None. TECHNIQUE: Multiplanar multisequence MRI of the left knee without intravenous contrast administration. FINDINGS: MENISCI: Medial: There is subtle irregularity of the tibial articular surface of the posterior horn near the junction of the body segment, with subtle linear T2 signal extending from the area of irregularity into the posterior horn. This could represent a subtle nondisplaced tear. Lateral: Normal. CRUCIATE LIGAMENTS: Anterior and posterior cruciate ligaments are normal. COLLATERAL LIGAMENTS: The medial collateral ligament and lateral collateral ligamentous complex are normal. ARTICULAR CARTILAGE: Lateral compartment: Normal. Medial compartment: Mild irregularity along the weightbearing surface of the femoral condyle. Patellofemoral compartment: Mild cartilage thinning and irregularity. OTHER: Small amount of patchy marrow edema in the posterior posterior medial tibial plateau. There is more prominent marrow edema in the lateral tibial plateau and a small amount of patchy marrow edema along the weightbearing surface of the medial femoral condyle. Curvilinear fracture line continuous with 2 discrete foci of cortical disruption along the posterior aspect of the lateral tibial plateau consistent with a nondisplaced fracture (series 4 and 6, image 19). Susceptibility artifact in the distal femur secondary to orthopedic hardware. Mild periarticular soft tissue edema. Procedure Note Edinson Landaverde MD - 05/07/2025 PROCEDURE: MRI of the left knee without contrast. HISTORY: INSTABILITY OF LT KNEE. COMPARISON: None. TECHNIQUE: Multiplanar multisequence MRI of the left knee withoutintravenous contrast administration. FINDINGS: MENISCI: Medial: There is subtle irregularity of the tibial articular surface ofthe posterior horn near the junction of the body segment, with subtlelinear T2 signal extending from the area of irregularity into theposterior horn. This could represent a subtle nondisplaced tear. Lateral: Normal. CRUCIATE LIGAMENTS: Anterior and posterior cruciate ligaments arenormal. COLLATERAL LIGAMENTS: The medial collateral ligament and lateralcollateral ligamentous complex are normal. ARTICULAR CARTILAGE: Lateral compartment: Normal. Medial compartment: Mild irregularity along the weightbearing surface ofthe femoral condyle. Patellofemoral compartment: Mild cartilage thinning and irregularity. OTHER: Small amount of patchy marrow edema in the posterior posteriormedial tibial plateau. There is more prominent marrow edema in thelateral tibial plateau and a small amount of patchy marrow edema along theweightbearing surface of the medial femoral condyle. Curvilinear fractureline continuous with 2 discrete foci of cortical disruption along theposterior aspect of the lateral tibial plateau consistent with anondisplaced fracture (series 4 and 6, image 19). Susceptibility artifactin the distal femur secondary to orthopedic hardware. Mild periarticularsoft tissue edema. IMPRESSION: 1. Nondisplaced fracture of the posterior lateral tibial plateau. 2. Patchy marrow edema in the posterior medial tibial plateau and thelateral femoral condyle suggestive of bony contusions. 3. Possible subtle tear of the medial meniscus at the junction of theposterior horn and body segment. A [employer] message has been communicated to the office of HOWADR MUELLER [employer] on 05/07/2025 3:11 PM, MessageID [id number] -------- FINAL REPORT -------- Dictated By: Edinson Landaverde Dictated Date: 05/07/2025 14:23 ET Assigned Physician: Edinson Landaverde Reviewed and Electronically Signed By: Edinson Landaverde Signed Date: 05/07/2025 15:11 ET Workstation ID: [id number] Transcribed By: Self Edit Transcribed Date: 05/07/2025 14:23 ET us Howard [place] PA IMG MRI PROCEDURES Final Resu lt * XR Knee 3 Views Left (04/09/2025 5:00 PM EDT) Anatomical Region Laterality Modality Lower Extremities, Knee Left Radiogra phic Imaging 04/09/2025 5:32 PM EDT Impressions 04/09/2025 5:33 PM EDT 1. Negative for acute fracture or dislocation. 2. Intact surgical hardware in the visualized femur. Report reviewed and signed by : Dr. Pat Palomino on 04/09/2025 5:33 PM. Workstation Name - [id number] -------- FINAL REPORT -------- Dictated By: Pat Palomino Dictated Date: 04/09/2025 17:32 ET Assigned Physician: Pat Palomino Reviewed and Electronically Signed By: Pat Palomino Signed Date: 04/09/2025 17:33 ET Workstation ID: [id number] Transcribed By: Self Edit Transcribed Date: 04/09/2025 17:32 ET Narrative 04/09/2025 5:33 PM EDT RADIOGRAPH OF THE LEFT KNEE CLINICAL HISTORY: pain TECHNIQUE: 3 views obtained. COMPARISON: None. FINDINGS: No acute fracture or dislocation. An intramedullary eduard and distal screw are seen in the left femur. Surgical hardware is intact, and alignment is anatomic. Procedure Note Pat Palomino MD - 04/09/2025 RADIOGRAPH OF THE LEFT KNEE CLINICAL HISTORY: pain TECHNIQUE: 3 views obtained. COMPARISON: None. FINDINGS: No acute fracture or dislocation. An intramedullary eduard and distal screware seen in the left femur. Surgical hardware is intact, and alignment isanatomic. IMPRESSION: 1. Negative for acute fracture or dislocation. 2. Intact surgical hardware in the visualized femur. Report reviewed and signed by : Dr. Pat Palomino on 04/09/2025 5:33 PM.Workstation Name - [id number] -------- FINAL REPORT -------- Dictated By: Pat Palomino Dictated Date: 04/09/2025 17:32 ET Assigned Physician: Pat Palomino Reviewed and Electronically Signed By: Pat Palomino Signed Date: 04/09/2025 17:33 ET Workstation ID: [id number] Transcribed By: Self Edit Transcribed Date: 04/09/2025 17:32 ET Chyna CHRISTENSEN IMG XR PROCEDURES Final Res ult from Last 3 Months Insurance [employer] MEDICARE ADVANTAGE Care Teams Backrest Assembler Relationship Specialty Start Date End Date Divya Echeverria MD [address] [place] [address] PCP - General Internal Medicine 02/23/22
--- OUTSIDE RECORDS SUMMARY | 2025-06-19 12:14 | XMS_ITS | Encounter Summary ---
Author Organization Formerly [facility] Address [address] [place] [address] [address] [place] [address] Phone Care Team Providers Care Cartridge Loading Operator Name Role Phone Divya Echeverria MD Primary Care Provider Anayeli Ferguson MD Unavailable Mata Guidry SEWING ROOM SUPERVISOR Unavailable [phone] Maximo Crabtree MD Unavailable Amauri Das MD Unavailable Encounter Details Date Type Department Care Team (Late st Contact Info) Description 11/19/2022 Procedure Pass [facility], Mammography, Samina [facility] Imaging Department [address] [place] [address] Social History Tobacco Use Types Packs/Day Years Used Date Smoking Tobacco: Never Cigarettes 0.3 15 - 12/29/1989 Passive Smoke Exposure: Yes Comments:Very light 1-3 ciga rettes per week Alcohol Use Standard Drinks/Week Comments Yes 3 (1 standard drink = 0.6 oz pur e alcohol) Comments No Sex and Gender Information Value Date Recorded Sex Assigned at Female 12/05/2017 9:39 AM EST Legal Sex Female 5:00 PM EST Gender Identity Female Sexual Orientation Straight documented as of this encounter Plan of Treatment Upcoming Encounters Date Type Department Care Team (Late st Contact Info) Description 01/01/2025 Procedure Pass [facility], Mammography, [facility] Imaging Department [address] [place] [address] 11/29/2025 8:30 AM EST Appointment [facility], Mammography, [facility] Imaging Department [address] [place] [phone] Mata Guidry, SEWING ROOM SUPERVISOR [address] [place] [address] [email or web address] Anayeli Ferguson MD [address] [place] [id number] [email or web address] 11/29/2025 9:30 AM EST Office [facility], Priya Callahan [facility], [address] [place] [address] Mata Guidry, SEWING ROOM SUPERVISOR [address] [place] [address] [email or web address] Anayeli Ferguson MD [address] [place] [address] [email or web address] documented as of this encounter Visit Diagnoses Not on filedocumented in this encounter Additional Health Concerns Assessment Noted Time PHQ-9 Depression Total Score: 0 07/31/20 15 11:59 AM EDT PHQ-2 Depression Total Score: 0 07/31/20 15 11:59 AM EDT documented as of this encounter Care Teams Cartridge Loading Operator Relationship Specialty Start Date End Date Divya Echeverria MD [address] [place] [address] [place] [address] [email or web address] PCP - General Internal Medicine 06/02/17 Anayeli Ferguson MD [address] [place] [address] [email or web address] 06/06/19 Mata Guidry CNP [address] [place] [phone] [email or web address] Nurse Practitioner 01/01/25 Maximo Crabtree MD [address] [place] [address] Cardiology 01/18/25 Amauri Das MD [address] [place] [address] [place] [address] Pulmonary Disease 01/18/25 documented as of this encounter Additional Source Comments The information contained in this document represents components of the legal health record. It is not the complete legal health record.Formerly [facility]
--- OUTSIDE RECORDS SUMMARY | 2025-06-19 12:14 | XMS_ITS | Clinical Summary ---
Author Organization [facility] Address [address] [id number] Care Team Providers Care Lapel Baster Name Role Phone Divya Echeverria MD Primary Care Provider [phone] Allergies Active Allergy Reactions Criticality Noted Date [...] 81 12/13/2023 11:18 AM EST Temperature 36.7 C (98 F) 09/07/2023 3:30 PM EDT Respiratory Rate 8 [...] ( season) 2024 12/12/2020 Influenza Vaccine (#1) 2025 9, 09/06/2018, 09/08/2017, Additional history exists RSV [...] this topic Medical Devices Implanted Type Area Mechanical Engineering Specialist Device Identifier Shelf Expiration Date Model / Serial / Lot Plate Fibula 4h Variax Stry-Tram [id number] - [id number] Implanted:Qty: 1 on 09/07/2023 by Kristian Teresa MD at [facility] Location Plate Right: Ankle [employer] 40 / / Screw Bone Fthrd 3.5x14mm Stry-Tram [id number] - [id number] Implanted:Qty: 1 on 09/07/2023 by Kristian Teresa MD at [facility] Location Screw Right: Ankle [employer] [id number] / / Screw Bone Fthrd 3.5x12mm Stry-Tram [id number] - [id number] Implanted:Qty: 2 on 09/07/2023 by Kristian Teresa MD at [facility] Location Screw Right: Ankle [employer] [id number] / / Screw Bone Fthrd 3.5x16mm Stry-Tram [id number] - [id number] Implanted:Qty: 3 on 09/07/2023 by Kristian Teresa MD at [facility] Location Screw Right: Ankle [employer] [id number] / / Screw Lcking 3.5x16mm Thrd T10 Stry-Tram [id number] - [id number] Implanted:Qty: 1 on 09/07/2023 by Kristian Teresa MD at [facility] Location Screw Right: Ankle [employer] [id number] / / Screw Lcking T8 3.5x18mm Stry-Howm [id number] - [id number] Implanted:Qty: 2 on 09/07/2023 by Kristian Teresa MD at [facility] Location Screw Right: Ankle [employer] [id number] / / Screw Lcking T10 3.5x20mm Full Thread Stry-Tram [id number] - [id number] Implanted:Qty: 2 on 09/07/2023 by Kristian Teresa MD at [facility] Location Screw Right: Ankle [employer] [id number] / / Screw Fadumo Ti 4x38mm Ns Stry-Howm [id number] - [id number] Implanted:Qty: 1 on 09/07/2023 by Kristian Teresa MD at [facility] Location Right: Ankle [employer] [id number] / / Explanted Type Area Mechanical Engineering Specialist Device Identifier Shelf Expiration Date Model / Serial / Lot Screw Fadumo Ti 4x38mm Ns Stry-Howm [id number] - [id number] Explanted:Qty: 1 on 09/07/2023 at [facility] Location Right: Ankle [employer] [id number] / / Advance Directives For more information, please contact: [phone] Latest Code Status on File Code Status Date Activated Date Inactivated Comments Full Code 09/07/2023 12:54 PM 09/07/2023 10:56 PM T his code status was ascertained in the following way: discussion with patient . Care Teams Lapel Baster Relationship Specialty Start Date End Date Divya Echeverria MD [address] [place] [address] PCP - General Internal Medicine 09/05/23
--- OUTSIDE RECORDS SUMMARY | 2025-06-19 12:14 | XMS_ITS | Data Portability ---
Author Organization [place] [facility],, MADDI PEDERSEN MD Address [address] [address] Assessment No assessment recorded. Plan of Treatment [...] Not Available No t Available Fluad Quad 9752-3895(65 yr up)(PF) 60 mcg (15 mcg x 4)/0.5mL IM syringe VACCINATION ADMINISTERE D BY PHARMACIST active Not Available Not Available N ot Available Vitals Date Recorded Body temperature Provider Name a nd Address Organization Details Last Updated DateTime 12/12/2020 97.7 [degF] Kami Novak [place] - [facility], 12/12/2020 10:07:21 Social History None recorded. Functional [...] Maddi Pedersen MD [address], [place], [address], [place] [facility], 12/12/2020 11:00:49 COVID-19, mRNA, LNP-S, PF, 100 mcg/0.5mL dose or 50 mcg/0.25mL dose 01/09/2021 completed Maddi Pedersen MD [address], [place], [address], [facility] - [facility], 01/09/2021 12:10:07 SARS-COV-2 (COVID-19) vaccine, UNSPECIFIED 12/12/2020 completed Kami brown [place] - [facility], 12/12/2020 10:07:58 Past Encounters Encounter ID Performer Location Encounter Start Date Encounter Closed Date Diagnosis/Indication Diagnosis SNOMED-CT Code Diagnosis ICD10 Code Diagnosis Note [id number] MD MADDI Gardiner MD [address] [place] [address] 12/12/2020 10:00:26 12/12/2020 12:45:18 Administration of viral vaccine [id number] Z23 [id number] MD MADDI Gardiner MD [address] [place] [address] 01/09/2021 11:29:01 01/09/2021 14:33:25 Administration of viral vaccine [id number] Z23 Health Concerns Section Related Observation LastModified by Organization Detai ls LastModified Time None Recorded Concern Status LastModified by Organization Details LastModified Time None Recorded Advance Directives Directive None Recorded Payers Insurance Date Sequence Insurance Name Policy Number Policy Joya Covered Member ID Joya Member ID Guarantor Name 01/14/2021 MEDICARE B-[place]: [facility] [employer] Rupal Nobles [id number] Rupal Nobles 01/06/2021 1 [employer] (MEDICARE REPLACEMENT/A DVANTAGE - PPO) [id number] Rupal Nobles MEBTPSPH Rupal Nobles 01/09/2021 GENERIC MEDICARE - PART B (MOVED TO HOLD) [id number] Rupal Nobles OBGyn Episode No OBEpisode recorded.
--- OUTSIDE RECORDS SUMMARY | 2025-06-19 12:14 | XMS_ITS | Patient Health Record ---
Author Organization [facility] Address [address] [place] [address] Care Team Providers Care Clutch Assembler Name Role Phone SHAINA ECHEVERRIA Primary Care Provider [phone] Carlos Singh Unavailable [phone] Kobe Freeman Unavailable [phone] Allergies Allergen (clinical drug ingredient) Drug/Non Drug Allergy documented on EMR Reaction Allergy Type Onset Date Status Keflex rash Drug Allergy Active cefadroxil Cefadroxil rash Drug Allergy Activ e Substance with sulfonamide structure and antibacterial mechanism of action (substance) Sulfa Antibiotics rash Drug Allergy Active Results Component Value Reference Range Notes LIPID PANEL WITH REFLEX TO D IRECT LDL Reviewed date:06/11/2025 07:45:21 AM Interpretation: Performing Lab: Notes/Report: Cholesterol 175 0-200 mg/dL Triglycerides 121 0-150 mg/dL HDL 88 >=40 mg/dL LDL Calculated 63 0-100 mg/dL VLDL Cholesterol Dimitry 24.2 Non HDL Chol. (LDL+VLDL) 87 <145 mg/dL Chol/HDL Ratio 2.0 0.0-4.4 COMPREHENSIVE METABOLIC PANE L Reviewed date:06/11/2025 07:45:41 AM Interpretation: Performing Lab: Notes/Report: Sodium 138 133-145 mmol/L Potassium 3.6 3.5-5.5 mmol/L Chloride 104 96-110 mmol/L CO2 26 21-32 mmol/L Anion Gap 8 3-11 Glucose 75 70-100 mg/dL BUN 26 5-25 mg/dL Creatinine 0.78 0.50-1.10 mg/dL eGFR 82 >=60 mL/min/1.73m2 Calculati on based on the Chronic Kidney Disease Epidemiology Collaboration (CKD-EPI) equation refit without adjustment for race. BUN/Creatinine Ratio 33.3 Calcium 9.1 8.5-10.5 mg/dL AST (SGOT) 26 10-42 unit/L ALT (SGPT) 26 10-60 unit/L Alkaline Phosphatase 84 42-121 unit/L Total Protein 7.8 6.0-8.0 g/dL Albumin 3.5 3.2-5.0 g/dL Total Bilirubin 0.3 0.0-1.4 mg/dL MICROALBUMIN CREATININE URIN E RATIO Reviewed date:06/11/2025 07:45:15 AM Interpretation: Performing Lab: Notes/Report: Creatinine, Urine 18.0 Microalb, Ur <5.0 0.0-29.0 mg/L Microalb/Creat Ratio <28 <30 mg/g creat CBC WITH AUTO DIFFERENTIAL Reviewed date:06/10/2025 05:22:07 PM Interpretation: Performing Lab: Notes/Report: WBC 6.0 4.8-10.8 K/mcL RBC 4.50 3.80-4.80 M/mcL Hemoglobin 13.5 11.5-16.0 g/dL Hematocrit 42.3 35.0-47.0 % MCV 93.2 79.0-98.0 FL MCH 29.7 27.0-32.0 pcg MCHC 31.9 32.0-37.0 g/dL RDW 14.6 11.0-15.0 % Platelets 205 130-400 K/mcL MPV 10.9 7.0-11.0 FL NRBC 0.0 <1.0 % NRBC Absolute 0.00 <0.10 K/mcL Neutrophils Relative 58.8 Lymphocytes Relative 27.7 Monocytes Relative 9.7 Eosinophils Relative 2.5 Basophils Relative 1.0 Immature Granulocytes Relative 0.3 Neutrophils Absolute 3.52 1.50-7.00 K/mcL Lymphocytes Absolute 1.66 1.00-5.00 K/mcL Monocytes Absolute 0.58 0.20-1.00 K/mcL Eosinophils Absolute 0.15 0.00-0.50 K/mcL Basophils Absolute 0.06 0.00-0.20 K/mcL Immature Granulocytes Absolute 0.02 0.00-0.03 K/mcL Reason For Referral Reason left knee joint pain Please evaluate and treat Diagnosis 1 Pain in left knee (M 25.562) Referral Organization [facility] Referring Provider First Name SHAINA Referring Provider Last Name JUWAN Referring Provider Speciality Internal M edicine Referred Provider Specialty Orthopedic S ernie General Notes Please call the [facility] ent to schedule the appointment, [facility]. Please contact them at [phone], Alejandra Murrell 04/16/2025 04:34:05 PM > Referral Priority Routine Medications Medication SIG (Take, Route, Frequency, Duration) Notes Start Date End Date Status Pravastatin Sodium 80 MG 1 tablet Orally Once a day Active Eliquis 5 MG as directed Orally Twice a day Active amLODIPine Besylate 10 MG 1 tablet Orall y Once a day Active Omeprazole Active Calcium Active Furosemide 20 MG 1 tablet Orally Once a day Active Gabapentin 300 MG 1 capsule Orally Onc e a day Active DULoxetine HCl 30 MG 1 capsule Orally da shanika; Duration: 90 days Active Vitamin D Active Clindamycin HCl 300 MG 1 capsule Orally 3 times a day 05/15/2025 Not-Taking Immunizations Vaccine Route Administration Date Status Comme [...] W/U Status Risk Notes Problem Mixed hyperlipidemia (334837896) Mixed hyperlipidemia (E78.2) Active confirmed Problem Moderate major depression, single episode (64500241) Major depressive disorder, single episode, moderate (F32.1) Active confirmed Problem Atrioventricular block (614789197) Unspecified atrioventricular block (I44.30) Active confirmed Problem Cardiac pacemaker in situ (964576750) Presence of cardiac pacemaker (Z95.0) Active confirmed Problem Pulmonary hypertension (62920295) Pulmonary hypertension, unspecified (I27.20) Active confirmed Problem Essential hypertension (96559645) Essential hypertension (I10) Active confirmed Problem Chronic atrial fibrillation (405216102) Chronic atrial fibrillation (I48.20) Active confirmed Problem Obstructive sleep apnea syndrome (59098663) TRINA on CPAP (G47.33) Active confirmed Vital Signs Heart Rate 86 /min 06/12/2025 Temperature 96.7 degrees Fahrenheit 06/12/2025 Oximetry 97 % 06/12/2025 Blood pressure diastolic 78 mm Hg 06/12/2025 Height 5'5'' in 06/12/2025 Blood pressure systolic 110 mm Hg 06/12/2025 Weight 196.9 lbs 06/12/2025 BMI 32.76 kg/m2 06/12/2025 Encounters Encounter Location Date Provider Diagnosis [address] [place] [address] 10/19/2024 Aroosa Alam Essential hypertensi on I10 ; Mixed hyperlipidemia E78.2 and Chronic atrial fibrillation I48.[address] [place] [address] 04/16/2025 SHAINA ECHEVERRIA Essential hypertensi on I10 ; Pain in left knee M25.562 ; Mixed hyperlipidemia E78.2 and Chronic atrial fibrillation I48.[address] [place] [address] 05/15/2025 Ghadeer Mazloum Essential hypertensi on I10 ; Mixed hyperlipidemia E78.2 ; Chronic atrial fibrillation I48.20 ; TRINA on CPAP G47.33 ; Presence of cardiac pacemaker Z95.0 and Cellulitis of right lower extremity L03.[address] [place] [address] 06/12/2025 Ghadeer Mazloum Essential hypertensi on I10 ; Mixed hyperlipidemia E78.2 ; Chronic atrial fibrillation I48.20 ; TRINA on CPAP G47.33 and Presence of cardiac pacemaker Z95.[address] [place] [address] 04/12/2025 SHAINA ECHEVERRIA Assessments Encounter Date Diagnosis (ICD Code) Assessment [...] she is thinking about surgical intervention at [facility]. CT also showed granulomas in the lungs [...] was done in 2022 she follows with [facility] Bone density was done in 2022 at [facility] and according to patient it was normal. Pap smear also [facility] she does not need it anymore she is up-to-date on flu, with pneumonia and shingles 04/16/2025 Pain in left knee (ICD-10 - M25.562) 69-year-old lady with history of chronic A. fib pacemaker on anticoagulation, hypertension hyperlipidemia is here today for left knee joint pain. Plan as following. Left knee joint pain. History of fall. X-ray done at [facility] with no acute findings and was discharged on pain meds. She has appointment with physical therapy tomorrow at [place] and was given referral to orthopedics by us today. She can use [id number] Tylenol as needed. Ice to it, keep it elevated and she can use a knee brace if needed. Hypertension blood pressure , diastolic blood pressure [...] she is thinking about surgical intervention at [facility]. CT also showed granulomas in the lungs [...] was done in 2022 she follows with [facility] Bone density was done in 2022 at [facility] and according to patient it was normal. Pap smear also [facility] she does not need it anymore she is up-to-date on flu, with pneumonia and shingles 04/16/2025 Essential hypertension (ICD-10 - I10) 69-year-old lady with history of chronic A. fib pacemaker on anticoagulation, hypertension hyperlipidemia is here today for left knee joint pain. Plan as following. Left knee joint pain. History of fall. X-ray done at [facility] with no acute findings and was discharged on pain meds. She has appointment with physical therapy tomorrow at [place] and was given referral to orthopedics by us today. She can use [id number] Tylenol as needed. Ice to it, keep it elevated and she can use a knee brace if needed. Hypertension blood pressure , diastolic blood pressure [...] she is thinking about surgical intervention at [facility]. CT also showed granulomas in the lungs [...] was done in 2022 she follows with [facility] Bone density was done in 2022 at [facility] and according to patient it was normal. Pap smear also [facility] she does not need it anymore she is up-to-date on flu, with pneumonia and shingles 05/15/2025 Essential hypertension (ICD-10 - I10) 69-year-old lady with history of chronic A. fib pacemaker on anticoagulation, hypertension hyperlipidemia is here today for Cellulitis. Plan as follows Cellulitis. She was seen today at the urgent care and patient was started on clindamycin. Per patient, she had ultrasound of the lower extremities bilateral and DVT has been ruled out. We will obtain records from [facility] for review. Continue on clindamycin and she can also consider Tylenol as needed for pain Hypertension blood pressure: Repeat blood pressure systolic is within normal limits , diastolic blood pressure slightly elevated at 90,will continue with amlodipine. She will be getting blood work done before her next appointment, we will check blood pressure in 4 weeks if blood pressure is still running high then we will consider adjusting her medication list. Hyperlipidemia continue with statins, obtain a lipid profile patient is watching her diet and exercising/swimmin g every day. History of chronic A. fib on anticoagulation not on any rate controlling medications currently stable continue Eliquis History of TRINA on CPAP followed by Dr. Das New finding of paraesophageal hernia: She had an endoscopy coming up next week. CT also showed granulomas in the lungs and mild pulmonary hypertension but no suspicious nodules. She is followed by Dr. Das Chronic lower extremity edema/lymphedema continue with Lasix 20 mg daily Anxiety and depression: Stable on duloxetine 30 mg daily. She follows with a therapist. History of breast cancer she is current on mammogram last one was done in 2022 she follows with [facility] General concerns have been discussed I have rendered the services for this patient under direct supervision of Dr. Echeverria, who did not see the patient but was available upon request 06/12/2025 Essential hypertension (ICD-10 - I10) Rupal is a 69-year-old lady with history of chronic A. fib pacemaker on anticoagulation, hypertension hyperlipidemia is here today for Follow-up on hypertension. Plan as follows Hypertension blood pressure: Blood pressure is within normal limits on repeat. Continue on amlodipine 10 mg. We sent comp shows normal kidney function with normal electrolytes and no albumin in the urine. It is noted that she does have 2+ pitting edema, I have increased furosemide to twice a day for 3 days and then we will recheck BMP. Hyperlipidemia. Lipid panel is within normal limits. Continue on pravastatin 80 mg. chronic A. fib on anticoagulation not on any rate controlling medications currently stable continue Eliquis TRINA on CPAP followed by Dr. Das New finding of paraesophageal hernia: She did have endoscopy which showed a large hiatal hernia, however surgeons recommended but weight loss is recommended prior to surgery. She will schedule an appointment for weight consultation. In the meantime I have advised on diet modification with regimental exercises. CT also showed granulomas in the lungs and mild pulmonary hypertension but no suspicious nodules. She is followed by Dr. Das Chronic lower extremity edema/lymphedema continue with Lasix 20 mg daily Anxiety and depression: Stable on duloxetine 30 mg daily. She follows with a therapist. General concerns have been discussed I have rendered the services for this patient under direct supervision of Dr. Echeverria, who did not see the patient but was available upon request 06/12/2025 Mixed hyperlipidemia (ICD-10 - E78.2) Rupal is a 69-year-old lady with history of chronic A. fib pacemaker on anticoagulation, hypertension hyperlipidemia is here today for Follow-up on hypertension. Plan as follows Hypertension blood pressure: Blood pressure is within normal limits on repeat. Continue on amlodipine 10 mg. We sent comp shows normal kidney function with normal electrolytes and no albumin in the urine. It is noted that she does have 2+ pitting edema, I have increased furosemide to twice a day for 3 days and then we will recheck BMP. Hyperlipidemia. Lipid panel is within normal limits. Continue on pravastatin 80 mg. chronic A. fib on anticoagulation not on any rate controlling medications currently stable continue Eliquis TRINA on CPAP followed by Dr. Das New finding of paraesophageal hernia: She did have endoscopy which showed a large hiatal hernia, however surgeons recommended but weight loss is recommended prior to surgery. She will schedule an appointment for weight consultation. In the meantime I have advised on diet modification with regimental exercises. CT also showed granulomas in the lungs and mild pulmonary hypertension but no suspicious nodules. She is followed by Dr. Das Chronic lower extremity edema/lymphedema continue with Lasix 20 mg daily Anxiety and depression: Stable on duloxetine 30 mg daily. She follows with a therapist. General concerns have been discussed I have rendered the services for this patient under direct supervision of Dr. Echeverria, who did not see the patient but was available upon request 05/15/2025 Mixed hyperlipidemia (ICD-10 - E78.2) 69-year-old lady with history of chronic A. fib pacemaker on anticoagulation, hypertension hyperlipidemia is here today for Cellulitis. Plan as follows Cellulitis. She was seen today at the urgent care and patient was started on clindamycin. Per patient, she had ultrasound of the lower extremities bilateral and DVT has been ruled out. We will obtain records from [facility] for review. Continue on clindamycin and she can also consider Tylenol as needed for pain Hypertension blood pressure: Repeat blood pressure systolic is within normal limits , diastolic blood pressure slightly elevated at 90,will continue with amlodipine. She will be getting blood work done before her next appointment, we will check blood pressure in 4 weeks if blood pressure is still running high then we will consider adjusting her medication list. Hyperlipidemia continue with statins, obtain a lipid profile patient is watching her diet and exercising/swimmin g every day. History of chronic A. fib on anticoagulation not on any rate controlling medications currently stable continue Eliquis History of TRINA on CPAP followed by Dr. Das New finding of paraesophageal hernia: She had an endoscopy coming up next week. CT also showed granulomas in the lungs and mild pulmonary hypertension but no suspicious nodules. She is followed by Dr. Das Chronic lower extremity edema/lymphedema continue with Lasix 20 mg daily Anxiety and depression: Stable on duloxetine 30 mg daily. She follows with a therapist. History of breast cancer she is current on mammogram last one was done in 2022 she follows with [facility] General concerns have been discussed I have rendered the services for this patient under direct supervision of Dr. Echeverria, who did not see the patient but was available upon request 10/19/2024 Mixed hyperlipidemia (ICD-10 - E78.2) 69-year-old [...] she is thinking about surgical intervention at [facility]. CT also showed granulomas in the lungs [...] was done in 2022 she follows with [facility] Bone density was done in 2022 at [facility] and according to patient it was normal. Pap smear also [facility] she does not need it anymore she is up-to-date on flu, with pneumonia and shingles 04/16/2025 Mixed hyperlipidemia (ICD-10 - E78.2) 69-year-old lady with history of chronic A. fib pacemaker on anticoagulation, hypertension hyperlipidemia is here today for left knee joint pain. Plan as following. Left knee joint pain. History of fall. X-ray done at [facility] with no acute findings and was discharged on pain meds. She has appointment with physical therapy tomorrow at [place] and was given referral to orthopedics by us today. She can use [id number] Tylenol as needed. Ice to it, keep it elevated and she can use a knee brace if needed. Hypertension blood pressure , diastolic blood pressure [...] she is thinking about surgical intervention at [facility]. CT also showed granulomas in the lungs [...] was done in 2022 she follows with [facility] Bone density was done in 2022 at [facility] and according to patient it was normal. Pap smear also [facility] she does not need it anymore she [...] she is thinking about surgical intervention at [facility]. CT also showed granulomas in the lungs [...] was done in 2022 she follows with [facility] Bone density was done in 2022 at [facility] and according to patient it was normal. Pap smear also [facility] she does not need it anymore she is up-to-date on flu, with pneumonia and shingles 04/16/2025 Chronic atrial fibrillation (ICD-10 - I48.20) 69-year-old lady with history of chronic A. fib pacemaker on anticoagulation, hypertension hyperlipidemia is here today for left knee joint pain. Plan as following. Left knee joint pain. History of fall. X-ray done at [facility] with no acute findings and was discharged on pain meds. She has appointment with physical therapy tomorrow at [place] and was given referral to orthopedics by us today. She can use [id number] Tylenol as needed. Ice to it, keep it elevated and she can use a knee brace if needed. Hypertension blood pressure , diastolic blood pressure [...] she is thinking about surgical intervention at [facility]. CT also showed granulomas in the lungs [...] was done in 2022 she follows with [facility] Bone density was done in 2022 at [facility] and according to patient it was normal. Pap smear also [facility] she does not need it anymore she is up-to-date on flu, with pneumonia and shingles 06/12/2025 Chronic atrial fibrillation (ICD-10 - I48.20) Rupal is a 69-year-old lady with history of chronic A. fib pacemaker on anticoagulation, hypertension hyperlipidemia is here today for Follow-up on hypertension. Plan as follows Hypertension blood pressure: Blood pressure is within normal limits on repeat. Continue on amlodipine 10 mg. We sent comp shows normal kidney function with normal electrolytes and no albumin in the urine. It is noted that she does have 2+ pitting edema, I have increased furosemide to twice a day for 3 days and then we will recheck BMP. Hyperlipidemia. Lipid panel is within normal limits. Continue on pravastatin 80 mg. chronic A. fib on anticoagulation not on any rate controlling medications currently stable continue Eliquis TRINA on CPAP followed by Dr. Das New finding of paraesophageal hernia: She did have endoscopy which showed a large hiatal hernia, however surgeons recommended but weight loss is recommended prior to surgery. She will schedule an appointment for weight consultation. In the meantime I have advised on diet modification with regimental exercises. CT also showed granulomas in the lungs and mild pulmonary hypertension but no suspicious nodules. She is followed by Dr. Das Chronic lower extremity edema/lymphedema continue with Lasix 20 mg daily Anxiety and depression: Stable on duloxetine 30 mg daily. She follows with a therapist. General concerns have been discussed I have rendered the services for this patient under direct supervision of Dr. Echeverria, who did not see the patient but was available upon request 05/15/2025 Chronic atrial fibrillation (ICD-10 - I48.20) 69-year-old lady with history of chronic A. fib pacemaker on anticoagulation, hypertension hyperlipidemia is here today for Cellulitis. Plan as follows Cellulitis. She was seen today at the urgent care and patient was started on clindamycin. Per patient, she had ultrasound of the lower extremities bilateral and DVT has been ruled out. We will obtain records from [facility] for review. Continue on clindamycin and she can also consider Tylenol as needed for pain Hypertension blood pressure: Repeat blood pressure systolic is within normal limits , diastolic blood pressure slightly elevated at 90,will continue with amlodipine. She will be getting blood work done before her next appointment, we will check blood pressure in 4 weeks if blood pressure is still running high then we will consider adjusting her medication list. Hyperlipidemia continue with statins, obtain a lipid profile patient is watching her diet and exercising/swimmin g every day. History of chronic A. fib on anticoagulation not on any rate controlling medications currently stable continue Eliquis History of TRINA on CPAP followed by Dr. Das New finding of paraesophageal hernia: She had an endoscopy coming up next week. CT also showed granulomas in the lungs and mild pulmonary hypertension but no suspicious nodules. She is followed by Dr. Das Chronic lower extremity edema/lymphedema continue with Lasix 20 mg daily Anxiety and depression: Stable on duloxetine 30 mg daily. She follows with a therapist. History of breast cancer she is current on mammogram last one was done in 2022 she follows with [facility] General concerns have been discussed I have rendered the services for this patient under direct supervision of Dr. Echeverria, who did not see the patient but was available upon request 05/15/2025 TRINA on CPAP (ICD-10 - G47.33) 69-year-old lady with history of chronic A. fib pacemaker on anticoagulation, hypertension hyperlipidemia is here today for Cellulitis. Plan as follows Cellulitis. She was seen today at the urgent care and patient was started on clindamycin. Per patient, she had ultrasound of the lower extremities bilateral and DVT has been ruled out. We will obtain records from [place] for review. Continue on clindamycin and she can also consider Tylenol as needed for pain Hypertension blood pressure: Repeat blood pressure systolic is within normal limits , diastolic blood pressure slightly elevated at 90,will continue with amlodipine. She will be getting blood work done before her next appointment, we will check blood pressure in 4 weeks if blood pressure is still running high then we will consider adjusting her medication list. Hyperlipidemia continue with statins, obtain a lipid profile patient is watching her diet and exercising/swimmin g every day. History of chronic A. fib on anticoagulation not on any rate controlling medications currently stable continue Eliquis History of TRINA on CPAP followed by Dr. Das New finding of paraesophageal hernia: She had an endoscopy coming up next week. CT also showed granulomas in the lungs and mild pulmonary hypertension but no suspicious nodules. She is followed by Dr. Das Chronic lower extremity edema/lymphedema continue with Lasix 20 mg daily Anxiety and depression: Stable on duloxetine 30 mg daily. She follows with a therapist. History of breast cancer she is current on mammogram last one was done in 2022 she follows with [facility] General concerns have been discussed I have rendered the services for this patient under direct supervision of Dr. Echeverria, who did not see the patient but was available upon request 06/12/2025 TRINA on CPAP (ICD-10 - G47.33) Rupal is a 69-year-old lady with history of chronic A. fib pacemaker on anticoagulation, hypertension hyperlipidemia is here today for Follow-up on hypertension. Plan as follows Hypertension blood pressure: Blood pressure is within normal limits on repeat. Continue on amlodipine 10 mg. We sent comp shows normal kidney function with normal electrolytes and no albumin in the urine. It is noted that she does have 2+ pitting edema, I have increased furosemide to twice a day for 3 days and then we will recheck BMP. Hyperlipidemia. Lipid panel is within normal limits. Continue on pravastatin 80 mg. chronic A. fib on anticoagulation not on any rate controlling medications currently stable continue Eliquis TRINA on CPAP followed by Dr. Das New finding of paraesophageal hernia: She did have endoscopy which showed a large hiatal hernia, however surgeons recommended but weight loss is recommended prior to surgery. She will schedule an appointment for weight consultation. In the meantime I have advised on diet modification with regimental exercises. CT also showed granulomas in the lungs and mild pulmonary hypertension but no suspicious nodules. She is followed by Dr. Das Chronic lower extremity edema/lymphedema continue with Lasix 20 mg daily Anxiety and depression: Stable on duloxetine 30 mg daily. She follows with a therapist. General concerns have been discussed I have rendered the services for this patient under direct supervision of Dr. Echeverria, who did not see the patient but was available upon request 06/12/2025 Presence of cardiac pacemaker (ICD-10 - Z95.0) Rupal is a 69-year-old lady with history of chronic A. fib pacemaker on anticoagulation, hypertension hyperlipidemia is here today for Follow-up on hypertension. Plan as follows Hypertension blood pressure: Blood pressure is within normal limits on repeat. Continue on amlodipine 10 mg. We sent comp shows normal kidney function with normal electrolytes and no albumin in the urine. It is noted that she does have 2+ pitting edema, I have increased furosemide to twice a day for 3 days and then we will recheck BMP. Hyperlipidemia. Lipid panel is within normal limits. Continue on pravastatin 80 mg. chronic A. fib on anticoagulation not on any rate controlling medications currently stable continue Eliquis TRINA on CPAP followed by Dr. Das New finding of paraesophageal hernia: She did have endoscopy which showed a large hiatal hernia, however surgeons recommended but weight loss is recommended prior to surgery. She will schedule an appointment for weight consultation. In the meantime I have advised on diet modification with regimental exercises. CT also showed granulomas in the lungs and mild pulmonary hypertension but no suspicious nodules. She is followed by Dr. Das Chronic lower extremity edema/lymphedema continue with Lasix 20 mg daily Anxiety and depression: Stable on duloxetine 30 mg daily. She follows with a therapist. General concerns have been discussed I have rendered the services for this patient under direct supervision of Dr. Echeverria, who did not see the patient but was available upon request 05/15/2025 Presence of cardiac pacemaker (ICD-10 - Z95.0) 69-year-old lady with history of chronic A. fib pacemaker on anticoagulation, hypertension hyperlipidemia is here today for Cellulitis. Plan as follows Cellulitis. She was seen today at the urgent care and patient was started on clindamycin. Per patient, she had ultrasound of the lower extremities bilateral and DVT has been ruled out. We will obtain records from [facility] for review. Continue on clindamycin and she can also consider Tylenol as needed for pain Hypertension blood pressure: Repeat blood pressure systolic is within normal limits , diastolic blood pressure slightly elevated at 90,will continue with amlodipine. She will be getting blood work done before her next appointment, we will check blood pressure in 4 weeks if blood pressure is still running high then we will consider adjusting her medication list. Hyperlipidemia continue with statins, obtain a lipid profile patient is watching her diet and exercising/swimmin g every day. History of chronic A. fib on anticoagulation not on any rate controlling medications currently stable continue Eliquis History of TRINA on CPAP followed by Dr. Das New finding of paraesophageal hernia: She had an endoscopy coming up next week. CT also showed granulomas in the lungs and mild pulmonary hypertension but no suspicious nodules. She is followed by Dr. Das Chronic lower extremity edema/lymphedema continue with Lasix 20 mg daily Anxiety and depression: Stable on duloxetine 30 mg daily. She follows with a therapist. History of breast cancer she is current on mammogram last one was done in 2022 she follows with [facility] concerns have been discussed I have rendered the services for this patient under direct supervision of Dr. Echeverria, who did not see the patient but was available upon request 05/15/2025 Cellulitis of right lower extremity (ICD-10 - L03.115) 69-year-old lady with history of chronic A. fib pacemaker on anticoagulation, hypertension hyperlipidemia is here today for Cellulitis. Plan as follows Cellulitis. She was seen today at the urgent care and patient was started on clindamycin. Per patient, she had ultrasound of the lower extremities bilateral and DVT has been ruled out. We will obtain records from [facility] for review. Continue on clindamycin and she can also consider Tylenol as needed for pain Hypertension blood pressure: Repeat blood pressure systolic is within normal limits , diastolic blood pressure slightly elevated at 90,will continue with amlodipine. She will be getting blood work done before her next appointment, we will check blood pressure in 4 weeks if blood pressure is still running high then we will consider adjusting her medication list. Hyperlipidemia continue with statins, obtain a lipid profile patient is watching her diet and exercising/swimmin g every day. History of chronic A. fib on anticoagulation not on any rate controlling medications currently stable continue Eliquis History of TRINA on CPAP followed by Dr. Das New finding of paraesophageal hernia: She had an endoscopy coming up next week. CT also showed granulomas in the lungs and mild pulmonary hypertension but no suspicious nodules. She is followed by Dr. Das Chronic lower extremity edema/lymphedema continue with Lasix 20 mg daily Anxiety and depression: Stable on duloxetine 30 mg daily. She follows with a therapist. History of breast cancer she is current on mammogram last one was done in 2022 she follows with [facility] General concerns have been discussed I have rendered the services for this patient under direct supervision of Dr. Echeverria, who did not see the patient but was available upon request Plan Of Treatment Pending Test Test Name Order Date CBC with Diff, Platelet, [id number] 09/29 Albumin/Creatinine Ratio,[id number] Lipid Panel With LDL/HDL Ratio-[id number] Basic Metabolic Panel [id number] Comp. Metabolic Panel [id number] 2023 Next Appt Details Provider Name:SHAINA KOWASLKIRodolfo , 06/26/2025 11:00:00 AM, [address] [place] [address], [id number], Provider Name:Carlos Singh, 1 12/02/2024 02:30:00 PM, [address] [place] [address], [place], [phone], Insurance Providers Payer Name Payer Address Payer Phone Subscriber Number Group Number Insured Name Patient Relationship to Insured Coverage Start Date Coverage End Date [employer] [address] [address] [place] [address] [id number] Rupal Nobles Self - patient is the insured 4 Medical (General) History Medical History History ICD Code hypertension mixed hyperlipidemia Chronic atrial fibrillation Obstructive sleep apnea on CPAP Heart block status post pacemaker Lymphedema Depression Pulmonary hypertension follows with Dr. Das Surgical History Surgery Date(Month/Year) status post pacemaker Dr. Crabtree Status post left mastectomy with reconstruction surgery at [facility] 20 years ago Status post right ankle fracture and rep air 2022 status post left femur fracture after a fall repair 2018 Failed cardioversion
--- OUTSIDE RECORDS SUMMARY | 2025-06-19 12:14 | XMS_ITS ---
Author Name [facility] Organization Unknown History of Medication Use Medication Directions Dispensed Refills Start Date End Date Stat clindamycin (CLEOCIN) capsule 300 mg 300 mg, oral, Once, On Tue05/15/25 at 1105, For 1 dose, Indication: Skin/Soft Tissue 05/15/2025 05/15/2025 completed clindamycin (CLEOCIN) 300 mg capsule Take 1 capsule (300 mg total) by mouth 3 (three) times a day for 10 days. 05/15/2025 active methocarbamoL (ROBAXIN) 500 mg tablet Take 1 tablet (500 mg total) by mouth 2 (two) times a day if needed for muscle spasms for up to 15 doses. 04/09/2025 active furosemide (LASIX) 20 mg tablet TAKE ONE TABLET BY MOUTH EVERY DAY NEEDED FOR SWELLING 01/07/2025 active oxyCODONE-acetamino phen (PERCOCET) 5-325 mg per tablet Take 2 tablets by mouth every 6 (six) hours as needed. 09/07/2023 active oxyCODONE-acetamino phen (PERCOCET) 5-325 MG per tablet Take 2 tablets by mouth every 6 (six) hours as needed. 09/07/2023 active DULoxetine (CYMBALTA) [address] capsule Take 1 capsule (30 mg total) by mouth daily. 08/29/2023 active budesonide-formoter oL (Symbicort) 80-4.5 mcg/actuation inhaler 2 puffs 2 (two) times a day. 08/28/2023 active Symbicort 80-4.5 MCG/ACT inhaler 2 puffs 2 (two) times a day. 08/28/2023 active alendronate (FOSAMAX) 70 mg tablet Take 1 tablet (70 mg total) by mouth every 7 days. 08/07/2023 active alendronate (FOSAMAX) tablet 70 mg Take 1 tablet (70 mg total) by mouth every 7 days. 08/07/2023 active amLODIPine (NORVASC) 10 mg tablet Take 1 tablet (10 mg total) by mouth every night at bedtime. 07/23/2023 active gabapentin (NEURONTIN) 300 mg capsule Take 1 capsule (300 mg total) by mouth every night at bedtime. 07/23/2023 active omeprazole (PriLOSEC) [address] capsule Take 1 capsule (20 mg total) by mouth daily. 07/23/2023 active pravastatin (PRAVACHOL) 80 mg tablet Take 1 tablet (80 mg total) by mouth every night at bedtime. 07/23/2023 active pravastatin (PRAVACHOL) tablet 80 mg Take 1 tablet (80 mg total) by mouth every night at bedtime. 07/23/2023 active apixaban (Eliquis) 5 mg tablet Take 1 tablet (5 mg total) by mouth 2 (two) times a day. 06/21/2023 active albuterol 108 (90 Base) MCG/ACT inhaler Inhale 2 puffs into the lungs. 07/13/2018 active albuterol HFA (PROAIR HFA ; PROVENTIL HFA ; VENTOLIN HFA) 90 mcg/actuation inhaler Inhale 2 puffs into the lungs. 07/13/2018 active cetirizine (ZyrTEC) 10 mg tablet Take 1 tablet (10 mg total) by mouth 2 (two) times a day. 07/13/2018 active Calcium Carbonate-Vitamin D 600-5 MG-MCG TABS Take by mouth. 02/01/2008 act chary calcium carbonate-vitamin D3 600 mg-5 mcg (200 unit) per tablet Take by mouth. 02/01/2008 active Advair HFA 115 mcg-21 mcg/actuation aerosol inhaler INHALE TWO PUFFS BY MOUTH TWICE A DAY active amlodipine 10 mg tablet TAKE 1 TABLET DAILY active doxycycline monohydrate 100 mg capsule TAKE 2 TABLETS FOR TICK BITE PROPHYLAXIS SAVE REST FOR FUTURE TICK BITES active duloxetine 30 mg capsule,delayed release TAKE ONE CAPSULE BY MOUTH EVERY DAY active Eliquis 5 mg tablet TAKE 1 TABLET TWICE A DAY active fluticasone 250 mcg-salmeterol 50 mcg/dose blistr powdr for inhalation INHALE 1 PUFF TWO TIMES A DAY active fluticasone propionate 50 mcg/actuation nasal spray,suspension USE 2 SPRAYS IN EACH NOSTRIL DAILY active furosemide 20 mg tablet TAKE ONE TABLET BY MOUTH EVERY DAY NEEDED FOR SWELLING active gabapentin 300 mg capsule TAKE 1 CAPSULE AT BEDTIME active methocarbamol 500 mg tablet TAKE ONE TABLET BY MOUTH TWICE A DAY NEEDED FOR MUSCLE SPASMS active omeprazole 20 mg capsule,delayed release TAKE 1 CAPSULE DAILY FOR ACID REFLUX active oxycodone 5 mg tablet TAKE ONE TABLET BY MOUTH EVERY 6 HOURS NEEDED FOR SEVERE PAIN SCALE 7 TO 10 active pravastatin 80 mg tablet TAKE 1 TABLET AT BEDTIME active triamcinolone acetonide 0.1 % topical cream APPLY TO AFFECTED AREA S) TWO TIMES A DAY ON LEGS FOLLOWED BY MOISTURIZER DO NOT USE ON FACE GENITAILIA OR SKIN FOLDS active Allergies Allergen Reaction Severity Comment Documented Date Source Statu s CEFADROXIL RASH 09/07/2023 [facility] active CEPHALEXIN RASH 09/07/2023 [facility] active SULFA (SULFONAMIDE ANTIBIOTICS) RASH 09/03/2023 [facility] active SULFA ANTIBIOTICS RASH 09/03/2023 [facility] ac tive OTHER OTHER 04/12/2022 [facility] active Problems Problem Status Onset Date Problem Type Date of Resolution Source Encounter for adjustment or management of cardiac device active EncounterDiagnosisAct [facility]_T [facility] Pain of right lower extremity active EncounterDiagnosisAct CT_ [facility] Bimalleolar fracture, right, closed, with routine healing, subsequent encounter active 2023-09-05 ProblemAct [facility] Cellulitis of right lower extremity active EncounterDiagnosisAct CT_[facility] Closed fracture of tibial plateau active 2025-05-14 ProblemAct [facility] Closed fracture of left tibial plateau active 2025-05-14 ProblemAct [facility] Instability of joint of left knee active 2025-04-17 ProblemAct [facility] T Encounters Encounter Type Encounter Reason Primary Diagnosis Location Date Emergency Referred by provider Bilateral lower extremities, legs? swelling requesting an ultrasound Pain in right leg [facility] 05/15/2025 Emergency bilateral leg pain swelling r/o dvt Localized edema [facility] 05/14/2025 Ambulatory [facility] 05/14/2025 Ambulatory [facility] 05/08/2025 Ambulatory [facility] 05[facility]05/2025 Ambulatory [facility] 04[facility]18/2025 Ambulatory [facility] 04/18/2025 Ambulatory [facility] 04/18/2025 Ambulatory [facility] 04/17/2025 Ambulatory [facility] 04/17/2025 Ambulatory [facility] 04/17/2025 Ambulatory [facility] 04/17/2025 Ambulatory [facility] 04/17/2025 Ambulatory [facility] 04/12/2025 Ambulatory [facility] 04/12/2025 Ambulatory [facility] 04/10/2025 Emergency knee pain Sprain of unspecified site of left knee, initial encounter [facility] 04/09/2025 Ambulatory Displaced bimalleolar fracture of right lower leg, initial encounter for closed fracture Displaced bimalleolar fracture of right lower leg, initial encounter for closed fracture [facility] 09/07/2023 Emergency Unspecified fracture of shaft of right tibia, initial encounter for closed fracture Unspecified fracture of shaft of right tibia, initial encounter for closed fracture [facility] 09/03/2023 Emergency Pain in left hip Pain in left hip [facility] 08/06/2023 Care Team Organization Name Specialty Phone Email Start Date End Da te [facility] 06/07/2025 [facility] 04/10/2025 [facility] 04/09/2025 [facility] 04/09/2025 [facility] 02/14/2025 025 [facility] 08/06/2023 03/02/2025 [facility] 08/06/2023 09/0 07/2023 [facility]
== END 2025-06-19 11:42 | disposition home or self-care (01) ==
LOC: HO.HPS 11:12
PROVIDERS: PCP Internal Medicine; Visit Provider Hospitalist
DX: R91.8 Other nonspecific abnormal finding of lung field (principal); G47.33 Obstructive sleep apnea (adult) (pediatric); I48.20 Chronic atrial fibrillation, unspecified; K44.9 Diaphragmatic hernia without obstruction or gangrene
CPT/HCPCS: 99214

== ENCOUNTER → 2025-06-19 11:11 | Outpatient (BNVA) | payer MEDICARE, SELFPAY | PROVIDERS: PCP Internal Medicine; Visit Provider Hospitalist | DX: R91.8 Other nonspecific abnormal finding of lung field (principal); I48.20 Chronic atrial fibrillation, unspecified; G47.33 Obstructive sleep apnea (adult) (pediatric); K44.9 Diaphragmatic hernia without obstruction or gangrene | CPT/HCPCS: 99212 ==